=== PATIENT | female | born 1970 | race Caucasian/White ===

== ENCOUNTER → 2017-09-18 06:57 | Outpatient (CLI) | payer OTHER, SELFPAY ==
--- NOTE | 2017-09-18 07:23 | BI_ITS ---
MAMMOGRAPHY - BILATERAL SCREENING REASON FOR EXAM: Female, 46 years old. Routine annual screening examination. PERTINENT HISTORY: Mother with breast cancer. Aunt with breast cancer. TECHNIQUE: Digital bilateral breast mendoza (3D mammographic acquisition) in the CC and MLO projections. 2-D mediolateral oblique (MLO) and craniocaudad (CC) views of both breasts were obtained. CAD: Full Field Digital Mammography with Computer Added Detection was performed. COMPARISON: Comparison is made with prior examination dated November 04, 2013 and August 27, 2011. FINDINGS: Breast Composition: The breasts are heterogeneously dense, which may obscure small masses. There are no dominant masses or suspicious calcifications. Stable appearance of the small bilateral axillary lymph nodes. No other significant abnormalities are identified. There has been no significant change since the prior study. BI/SCREENING MAMM (CAD), BILAT IMPRESSION: Stable bilateral screening mammogram. Yearly follow-up mammogram recommended. (A) ASSESSMENT CATEGORY: BIRADS Category 2: Benign. A letter regarding these results will be sent to the patient by the facility within 30 days. Approximately 10% of breast cancers are not detected by mammography. A normal mammogram should not delay biopsy of a clinically suspicious abnormality. [id number] Electronically Signed: Gaurang Keenan MD at 10:55 EDT Tel [phone], Service support ,
== END ==
PROVIDERS: Family Provider Family Medicine; PCP Family Medicine
DX: Z12.31 Encounter for screening mammogram for malignant neoplasm of breast (principal)
CPT/HCPCS: 77063; 77067

== ENCOUNTER → 2024-11-06 | Outpatient (CLI) | payer BC, SELFPAY ==
[2024-11-06 11:28] LABS: Hematocrit 45.8 % (37-47); Hemoglobin 15.0 g/dL (12.0-15.0); Immature Granulocytes Count 0.020 X10^3/uL (0.0-0.0); Mean Corp Hgb Conc 32.8 g/dL (32-36); Mean Corpuscular Volume 94.6 fL (81-99); Mean Platelet Vol. 10.4 fl (6.2-12.0); NRBC Flagged by Analyzer 0 % (0-5); Platelet Count 258 K/mm3 (150-450); RBC Distribution Width CV 12.5 % (11.6-14.6); RBC Distribution Width SD 43.4 fl (35.1-43.9); Red Blood Count 4.84 M/mm3 (4.2-5.4); White Blood Count 7.3 K/mm3 (4.4-11.0)
[2024-11-06 12:55] LABS: AST(SGOT) 49 U/L (<=31); Alanine Aminotransfer ALT/SGPT 58 U/L (<=34); Albumin, Serum 4.5 g/dL (3.5-5.0); Alkaline Phosphatase 143 U/L (35-104); Anion Gap 13 (5-15); BUN 16 mg/dL (4-19); BUN/Creat Ratio 17.6 RATIO (10-20); Calcium,Total 9.8 mg/dL (7.6-11.0); Carbon Dioxide 25.8 mmol/L (21.0-32.0); Chloride 103 mmol/L (98-108); Globulin 3.3 g/dL (2.2-4.2); Glucose 92 mg/dL (70-99); Potassium 4.2 mmol/L (3.3-5.1)
--- OUTSIDE RECORDS SUMMARY | 2024-11-06 15:57 | XMS RPT_ITS | CCD ---
Author Organization [facility] Care Team Providers Care Rewind Operator Name Role Phone JUANY BROWN Unavailable Unavailable Rupesh Ho Unavailable Unavailable JUANY BROWN Unavailable Unavailable SUSANNAH GRIMES DO Primary Care Physician [phone] Unavailable Primary Care Provider UnavailCHRISTIANO Frye Attending Unavailable SUSANNAH GRIMES DO Primary Care Unavailable SUSANNAH GRIMES DO Attending Unavailable SUSANNAH GRIMES DO Primary Care Unavailable SUSANNAH GRIMES DO Primary Care Unavailable SUSANNAH GRIMES DO Attending Unavailable SUSANANH GRIMES DO Attending Unavailable SUSANNAH GRIMES DO Primary Care Unavailable SUSANNAH GRIMES DO Primary Care Unavailable SYDNEY LANDA, SUSANNAH Attending Unavailable Allergies Allergy Classification Reported Allergen(s) Allergy Type Date of Onset Reaction(s) Facility (1 source) Penicillins Drug allergy (disorder) 01-23-20 16 [facility] (9 sources) Amoxicillin; Translations: [amoxicillin] Drug Allergy Diarrhea (finding), Eruption of skin (disorder) [facility] (9 sources) Benzodiazepines ; Translations: [benzodiazepine s] Propensity to adverse reactions to drug hypersomnolence [facility] (9 sources) buPROPion; Translations: [bupropion] Drug Allergy Suicidal (finding) [facility] (9 sources) OLANZapine; Translations: [olanzapine] Drug Allergy extreme fatigue [facility] (9 sources) Penicillin; Translations: [penicillin] Drug Allergy Diarrhea (finding), Eruption of skin (disorder) [facility] (9 sources) zaleplon; Translations: [zaleplon] Drug Allergy Hallucinations (finding) [facility] (9 sources) zolpidem; Translations: [zolpidem] Drug Allergy became violent [facility] Medications Current Medications Medication Drug Class(es) Dates Sig (Normalized) Sig (Original) CPAP Supplies (1 source) Start: 12-18-2023 CPAP Supplies See Instructions, Full setup (mask/tubing/water res), # 1 EA, 3 Refill(s), 80.5 Start Date: 12/18/23 Status: Ordered Quantity: 1.0 Unit: EA Repeat number: 4 cyclobenzaprine hydrochloride 10 mg oral tablet (4 sources) Muscle Relaxant Start: 03-18-2024 cyclobenzaprine 10 mg oral tablet Dose : 10 mg = 1 tab(s), Oral, TID, PRN as needed for spasm, # 30 tab(s), 2 Refill(s), Pharmacy: [email or web address], 163, cm, 03/18/24 14:35:00 EST, Height, kg, 03/18/24 14:35:00 EST, Dosing Weight Start Date: 03/18/24 Status: Ordered Quantity: 30.0 Unit: tab(s) Repeat number: 3 Start: 11-06-2023 cyclobenzaprin e 10 mg oral tablet Dose : 10 mg = 1 tab(s), Oral, TID, PRN as needed for spasm, # 30 tab(s), 2 Refill(s), Pharmacy: [email or web address], 163, cm, 11/06/23 8:08:00 EDT, Height, kg, 11/06/23 8:08:00 EDT, Dosing Weight Start Date: 11/06/23 Status: Ordered Start: 09-18-2022 cyclobenzaprin e 10 mg oral tablet Dose : 10 mg = 1 tab(s), Oral, TID, PRN as needed for spasm, # 30 tab(s), 0 Refill(s) Start Date: 09/18/22 Status: Ordered DME MISCellaneous (3 sources) Start: 11-06-2023 DME MISCellane ous See Instructions, dx S98.921A dispense one right shoe insert for partial foot amputation (distal), # 1 EA, 0 Refill(s), Partial traumatic amputation of right foot, 81.1 Start Date: 11/06/23 Status: Ordered Quantity: 1.0 Unit: EA Repeat number: 1 Indications: Partial traumatic amputation of right foot, level unspecified, initial encounter; Start: 11-06-2023 DME MISCellane ous See Instructions, dx S98.921A dispense one right shoe insert for partial foot amputation (distal), # 1 EA, 0 Refill(s), Partial traumatic amputation of right foot, 81.1 Start Date: 11/06/23 Status: Ordered ferrous gluconate 324 mg oral tablet (1 source) Start: 08-29-2020 ferrous glucon ate 324 mg (37.5 mg elemental iron) oral tablet Dose : 324 mg = 1 tab(s), Oral, qDay, # 100 tab(s), 0 Refill(s) Start Date: 08/29/20 Status: Ordered fluticasone propionate 0.05 mg/actuat metered dose nasal spray (4 sources) Corticosteroid Start: 10-12-2024 End: 04-10-2025 take 1 dose nasal route once daily as needed for congestion fluticasone 50 mcg/inh NASAL spray Dose = 2 spray(s), Nostril, each, qDay, PRN Nasal congestion, in each nostril, # 1 EA, 5 Refill(s), Pharmacy: [email or web address], 164, cm, 10/12/24 16:05:00 EDT, Height, kg, 10/12/24 16:05:00 EDT, Dosing Weight Start Date: 10/12/24 Stop Date: 04/10/25 Status: Ordered Quantity: 1.0 Unit: EA Repeat number: 6 Start: 11-06-2023 End: 05-04-2024 take 1 dose nasal route once daily as needed for congestion fluticasone 50 mcg/inh NASAL spray Dose = 2 spray(s), Nostril, each, qDay, PRN Nasal congestion, in each nostril, # 1 EA, 5 Refill(s), Pharmacy: [email or web address], 163, cm, 11/06/23 8:08:00 EDT, Height, kg, 11/06/23 8:08:00 EDT, Dosing Weight Start Date: 11/06/23 Stop Date: 05/04/24 Status: Ordered Start: 07-23-2022 End: 01-19-2023 take 1 dose nasal route once daily as needed for congestion fluticasone 50 mcg/inh NASAL spray Dose = 2 spray(s), Nostril, each, qDay, PRN PRN Nasal congestion, in each nostril, # 1 EA, 5 Refill(s), Pharmacy: [email or web address], 162, cm, 12/22/21 14:35:00 EDT, Height, kg, 12/22/21 14:35:00 EDT, Dosing Weight Start Date: 07/23/22 Stop Date: 01/19/23 Status: Ordered gabapentin 300 mg oral capsule (2 sources) Anti-epileptic Agent Start: 11-06-2023 End: 01-05-2024 gabapentin 300 mg oral capsule Dose : 300 mg = 1 cap(s), Oral, TID, start one cap at night x3 days, then one cap BID x 3 days, then one cap TID, # 90 cap(s), 1 Refill(s), Pharmacy: [email or web address], Sciatica, 163, cm, 11/06/23 8:08:00 EDT, Height, 81.1, kg, 11/06/23 8:08:00 EDT, Dosing Weight Start Date: 11/06/23 Stop Date: 01/05/24 Status: Ordered hydrOXYzine hydrochloride 25 mg oral tablet (9 sources) Antihistamine Start: 10-12-2024 End: 01-10-2025 take 0.5-1 tablets by mouth once daily as needed hydrOXYzine hydrochloride 25 mg oral tablet 0.5-1 tab, Oral, qDay, PRN prn, # 30 EA, 2 Refill(s), Pharmacy: [email or web address], 164, cm, 10/12/24 16:05:00 EDT, Height, kg, 10/12/24 16:05:00 EDT, Dosing Weight Start Date: 10/12/24 Stop Date: 01/10/25 Status: Ordered Quantity: 30.0 Unit: EA Repeat number: 3 Start: 11-06-2023 End: 02-04-2024 take 0.5-1 tablets by mouth once daily as needed hydrOXYzine hydrochloride 25 mg oral tablet 0.5-1 tab, Oral, qDay, PRN prn, # 30 EA, 2 Refill(s), Pharmacy: [email or web address], 163, cm, 11/06/23 8:08:00 EDT, Height, kg, 11/06/23 8:08:00 EDT, Dosing Weight Start Date: 11/06/23 Stop Date: 02/04/24 Status: Ordered Start: 09-13-2020 End: 10-13-2020 take 0.5-1 tablets by mouth once daily as needed hydrOXYzine hydrochloride 25 mg oral tablet 0.5-1 tab, Oral, qDay, PRN prn, # 30 EA, 0 Refill(s), Pharmacy: [email or web address], 165, cm, 09/13/20 8:03:00 EDT, Height, kg, 09/13/20 8:03:00 EDT, Dosing Weight Start Date: 09/13/20 Stop Date: 10/13/20 Status: Ordered meloxicam 15 mg oral tablet (3 sources) Nonsteroidal Anti-inflammatory Drug Start: 10-12-2024 End: 11-11-2024 meloxicam 15 mg oral tablet Dose : 15 mg = 1 tab(s), Oral, qDayM, PRN Pain, Take with food/milk and fluids. Do not take any other NSAIDs while on this medication., # 30 tab(s), 0 Refill(s), Pharmacy: [email or web address], 164, cm, 10/12/24 16:05:00 EDT, Height, kg, 10/12/24 16:05:00 EDT, Dosing Weight Start Date: 10/12/24 Stop Date: 11/11/24 Status: Ordered Quantity: 30.0 Unit: tab(s) Repeat number: 1 Start: 11-06-2023 End: 12-06-2023 meloxicam 15 mg oral tablet Dose : 15 mg = 1 tab(s), Oral, qDayM, PRN Pain, Take with food/milk and fluids. Do not take any other NSAIDs while on this medication., # 30 tab(s), 0 Refill(s), Pharmacy: [email or web address], 163, cm, 11/06/23 8:08:00 EDT, Height, kg, 11/06/23 8:08:00 EDT, Dosing Weight Start Date: 11/06/23 Stop Date: 12/06/23 Status: Ordered venlafaxine 100 mg oral tablet (9 sources) Serotonin and Norepinephrine Reuptake Inhibitor Start: 10-12-2024 End: 04-10-2025 venlafaxine 100 mg oral tablet Dose : 100 mg = 1 tab(s), Oral, TID, with food, # 270 tab(s), 1 Refill(s), Pharmacy: [email or web address], 164, cm, 10/12/24 16:05:00 EDT, Height, kg, 10/12/24 16:05:00 EDT, Dosing Weight Start Date: 10/12/24 Stop Date: 04/10/25 Status: Ordered Quantity: 270.0 Unit: tab(s) Repeat number: 2 Start: 11-06-2023 End: 01-05-2024 venlafaxine 100 mg oral tabl et Dose : 100 mg = 1 tab(s), Oral, TID, with food, # 90 tab(s), 1 Refill(s), Pharmacy: [email or web address], 163, cm, 11/06/23 8:08:00 EDT, Height, kg, 11/06/23 8:08:00 EDT, Dosing Weight Start Date: 11/06/23 Stop Date: 01/05/24 Status: Ordered Start: 09-18-2022 End: 03-17-2023 venlafaxine 100 mg oral tabl et Dose : 100 mg = 1 tab(s), Oral, TID, with food, # 270 tab(s), 1 Refill(s), Pharmacy: [email or web address], 163, cm, 09/18/22 9:58:00 EDT, Height, kg, 09/18/22 9:58:00 EDT, Dosing Weight Start Date: 09/18/22 Stop Date: 03/17/23 Status: Ordered Start: 12-14-2020 End: 06-12-2021 venlafaxine 225 mg oral tabl et, extended release Dose : 225 mg = 1 tab(s), Oral, qDay, # 90 tab(s), 1 Refill(s), Pharmacy: [email or web address], 166, cm, 12/14/20 13:58:00 EDT, Height, kg, 12/14/20 13:58:00 EDT, Dosing Weight Start Date: 12/14/20 Stop Date: 06/12/21 Status: Ordered Vitamin B12 500 mcg oral tab let (3 sources) Start: 10-12-2024 Vitamin B12 50 0 mcg oral tablet Dose : 500 mcg = 1 tab(s), Oral, qDay, # 90 tab(s), 1 Refill(s), Pharmacy: [email or web address], 164, cm, 10/12/24 16:05:00 EDT, Height, kg, 10/12/24 16:05:00 EDT, Dosing Weight Start Date: 10/12/24 Status: Ordered Quantity: 90.0 Unit: tab(s) Repeat number: 2 Start: 11-06-2023 Vitamin B12 50 0 mcg oral tablet Dose : 500 mcg = 1 tab(s), Oral, qDay, # 90 tab(s), 1 Refill(s), Pharmacy: [email or web address], 163, cm, 11/06/23 8:08:00 EDT, Height, kg, 11/06/23 8:08:00 EDT, Dosing Weight Start Date: 11/06/23 Status: Ordered Vitamin D3 125 mcg (5000 int l units) oral capsule (1 source) Start: 10-12-2024 Vitamin D3 125 mcg (5000 intl units) oral capsule Dose : 125 mcg = 1 cap(s), Oral, qDay, # 100 cap(s), 1 Refill(s), Pharmacy: [email or web address], 164, cm, 10/12/24 16:05:00 EDT, Height, kg, 10/12/24 16:05:00 EDT, Dosing Weight Start Date: 10/12/24 Status: Ordered Quantity: 100.0 Unit: cap(s) Repeat number: 2 Vitamin D3 50 mcg (2000 intl units) oral tablet (3 sources) Start: 11-06-2023 End: 05-04-2024 Vitamin D3 50 mcg (2000 intl units) oral tablet Dose : 2,000 unit(s) = 1 tab(s), Oral, qDayM, with food, # 90 tab(s), 1 Refill(s), Pharmacy: [email or web address], 163, cm, 11/06/23 8:08:00 EDT, Height, kg, 11/06/23 8:08:00 EDT, Dosing Weight Start Date: 11/06/23 Stop Date: 05/04/24 Status: Ordered Start: 10-01-2022 End: 12-30-2022 Vitamin D3 50 mcg (2000 intl units) oral tablet Dose : 2,000 unit(s) = 1 tab(s), Oral, qDayM, with food, # 90 tab(s), 0 Refill(s), Pharmacy: [email or web address], 163, cm, 09/18/22 9:58:00 EDT, Height Start Date: 10/01/22 Stop Date: 12/30/22 Status: Ordered Completed/Discontinued Medications Medication Drug Class(es) Dates Sig (Normalized) Sig (Original) [id number] 200 actuat albuterol 0.09 mg/actuat metered dose inhaler (8 sources) beta2-Adrenergic Agonist Start: 11-06-2023 End: 12-18-2023 ProAir HFA MDI (90 mcg/inh) inhalation aerosol 2 puff(s), Inhalation, q6hr, PRN as needed for wheezing, 1-2 puffs, # 18 gram(s), 2 Refill(s), Pharmacy: [email or web address], 163, cm, 11/06/23 8:08:00 EDT, Height, kg, 11/06/23 8:08:00 EDT, Dosing Weight Start Date: 11/06/23 Stop Date: 12/18/23 Status: Ordered Quantity: 18.0 Unit: g Repeat number: 3 Start: 04-14-2021 End: 04-28-2021 ProAir HFA MDI (90 mcg/inh) inhalation aerosol 2 puff(s), Inhalation, q6hr, PRN as needed for wheezing, 1-2 puffs, # 18 gram(s), 0 Refill(s), Pharmacy: [email or web address], 162, cm, 04/14/21 11:22:00 EST, Height, kg, 04/14/21 11:22:00 EST, Dosing Weight Start Date: 04/14/21 Stop Date: 04/28/21 Status: Ordered Problems Problem Classification Problem Date Documented Da te Episodic/Chronic Anxiety disorders (20 sources) Generalized anxiety disorder; Translations: [Panic attack] 08-29-2020 Chronic Cardiac dysrhythmias (9 sources) Palpitations 08-29-2020 Episodic Diabetes mellitus without complication (10 sources) Prediabetes; Translations: [Prediabetes] Onset: 09-13-2021 01-02-2021 Episodic Disorders of lipid metabolism (4 sources) Mixed hyperlipidemia 10-01-2022 Chronic Comment on above: 09/28 ASCVD risk 1.0% Headache; including migraine (9 sources) Tension-type headache 12-14-2020 Chronic Headache; including migraine (3 sources) Headache 10-30-2022 Episodic Malaise and fatigue (8 sources) Fatigue 09-08-2021 Episodic Mood disorders (8 sources) Severe major depression; Translations: [Recurrent major depressive episodes, moderate ] 08-29-2020 Chronic Nonspecific chest pain (9 sources) Chest wall pain 08-29-2020 Episodic Nutritional deficiencies (4 sources) Vitamin D deficiency 10-01-2022 Chronic Nutritional deficiencies (3 sources) Cobalamin deficiency 10-30-2022 Episodic Other and unspecified benign neoplasm (9 sources) History of polyp of colon 08-29-2020 Episodic Other and unspecified benign neoplasm (4 sources) Melanocytic nevus 12-22-2021 Episodic Other bone disease and musculoskeletal deformities (1 source) Other specified disorders of bone density and structure, left thigh; Translations: [Other specified disorders of bone density and structure, left thigh] Onset: 10-30-2024 Episodic Other eye disorders (4 sources) Exophthalmos 10-12-2021 Chronic Other gastrointestinal disorders (9 sources) Irritable bowel syndrome 08-29-2020 Chronic Other infections; including parasitic (9 sources) History of herpes zoster 09-30-2020 Episodic Other liver diseases (4 sources) Elevated liver enzymes level 10-01-2022 Episodic Other liver diseases (3 sources) Alkaline phosphatase raised 11-05-2022 Episodic Other lower respiratory disease (9 sources) Snoring 02-21-2021 Episodic Other nutritional; endocrine; and metabolic disorders (3 sources) Body mass index 30+ - obesity 11-06-2023 Chronic Other nutritional; endocrine; and metabolic disorders (3 sources) Obesity 11-06-2023 Chronic Other screening for suspected conditions (not mental disorders or infectious disease) (5 sources) Viral screening status; Translations: [Encounter for screening mammogram for malignant neoplasm of breast] Onset: 10-30-2024 12-14-2020 Episodic Other upper respiratory infections (2 sources) Acute maxillary sinusitis; Translations: [Acute maxillary sinusitis, unspecified] Episodic Residual codes; unclassified (9 sources) Hypersomnia 02-21-2021 Chronic Residual codes; unclassified (4 sources) Obstructive sleep apnea syndrome 10-12-2021 Chronic Residual codes; unclassified (9 sources) Family history of breast cancer 08-29-2020 Episodic Residual codes; unclassified (5 sources) Immunization due 02-21-2021 Episodic Residual codes; unclassified (9 sources) Insomnia 08-29-2020 Episodic Residual codes; unclassified (3 sources) Screening due 11-06-2023 Episodic Screening and history of mental health and substance abuse codes (3 sources) Tobacco use and exposure - finding 11-06-2023 Chronic Spondylosis; intervertebral disc disorders; other back problems (1 source) Degeneration of lumbar intervertebral disc 12-18-2023 Chronic Spondylosis; intervertebral disc disorders; other back problems (4 sources) Low back pain 10-26-2021 Episodic Thyroid disorders (4 sources) Disorder of thyroid gland 09-20-2022 Episodic Unclassified (1 source) Cancer cervix screening status 02-21-2021 Unclassified (6 sources) Patient encounter status 02-21-2021 Unclassified (3 sources) Traumatic partial amputation of right foot 11-06-2023 Viral infection (5 sources) Respiratory syncytial virus infection 04-21-2021 Episodic Results Test Name Value Interpretation Reference Range Facility MA MAMMOGRAM SCREENING BILAT ERAL W/TOMOon 11-02-2024 MA MAMMOGRAM SCREENING BILATERAL W/GIRISH ORIGINAL FROM: NEREIDA BEAN [address] [place], [place] [address] PROCEDURE FOR: CAITLYN FERREIRA [address] [place] [address] Home: PID#: [id number] Exam#: [id number] : 1970 Age: 54 TO: SUSANNAH GRIMES DO [address] [place], [place] [address] Fax: NO FAX EXAMINATION: SCREENING DIGITAL BILATERAL MAMMOGRAM WITH TOMOSYNTHESIS, 10/30/2024 1:44 pm TECHNIQUE: Screening mammography of the bilateral breasts was performed with tomosynthesis. 2D standard and 3D tomosynthesis combination imaging performed through both breasts in the MLO and CC projection. Computer aided detection was utilized in the interpretation of this exam. COMPARISON: 03/17/2021 HISTORY: Breast cancer screening. FINDINGS: BREAST DENSITY: The breasts are heterogeneously dense, which may obscure small masses. There are no significant masses or calcifications. IMPRESSION: No mammographic evidence of malignancy. Continued screening with annual mammograms is recommended. Melanie zick risk calculations, generated with the history provided, report this patient's 10 year risk and lifetime risk for developing breast cancer at 8.9% and 28.6%, respectively. Based on this assessment tool, if the patient's calculated lifetime risk is below 20%, then the patient is considered at average risk for developing breast cancer. If the patient's calculated lifetime risk is at or above 20%, then the patient is considered high risk for developing breast cancer and may be a candidate for supplemental breast MRI screening in addition to annual mammographic screening per the [employer]. BIRADS: BI-RADS: 1: Negative RECALL: 1 year screening RECALL TYPE: mammo LETTER SENT: Normal BI-RADS 1 and 2 Interpreted by: Rivka Hernandez MD Preliminary Report By: Rivka Hernandez MD Electronically signed By Rivka Hernandez MD Dictated Date: 11/02/2024 11:20:34 PM Prelim Date: 11/02/2024 11:22:10 PM Sign Date: 11/02/2024 11:22:10 PM Ordering Provider: SUSANNAH GRIMES [employer]utter [employer]: ASHLYN FERRIS RT (R)(M) letter sent: Normal BI-RADS 1 and 2 Mammogram BI-RADS: 1 Negative Normal [facility] BD BONE DENSITY DEXA AXIAL S Manju 10-30-2024 BD BONE DENSITY DEXA AXIAL SKELETON ORIGINAL EXAMINATION: BONE DENSITOMETRY 10/30/2024 2:07 pm TECHNIQUE: A bone density dual x-ray absorptiometry (DEXA) scan was performed of the axial (e.g. hips, spine) and/or appendicular (e.g. radius) skeleton as appropriate. COMPARISON: None HISTORY: ORDERING SYSTEM PROVIDED HISTORY: Reason for Exam: Osteoporosis Screening FINDINGS: T Score Left Femoral Neck: -1.1 Left Femoral Neck: 0.724 (g/cm2) T Score Left Hip: -0.4 Left Hip: 0.888 (g/cm2) T Score Lumbar Spine: 0.2 Lumbar Spine: 1.073 (g/cmd2) FRAX: 10 year fracture risk assessment Major osteoporotic fracture: 5.5% Hip fracture: 0.3% IMPRESSION: Osteopenia by WHO criteria. World Health Organization criteria: (Comparing with young normal sex matched population) - Normal: T-score at or above -1 SD (standard deviation) - Osteopenia: T-score between -1 and -2.5 SD - Osteoporosis: T-score at or below -2.5 SD The NOF recommends that FDA-approved medical therapies be considered in post-menopausal women and men age >/= 50 years with a: * Hip or vertebral fracture, or * T-score of /= 20% for major osteoporotic fractures or * >/= 3% for hip fractures All treatment decisions require clinical judgement and consideration of individual patient factors, including patient preferences, comorbidities, previous drug use, risk factors not captured in the FRAX registered model (e.g., frailty, falls, vitamin D deficiency, increased bone turnover, interval significant decline in bone density) and possible under- or over-estimation of fracture risk by FRAX. Interpreted by: Rivka Reno DO Preliminary Report By: Rivka Reno DO Electronically signed By Rivka Reno DO Dictated Date: 10/30/2024 2:39:11 PM Prelim Date: 10/30/2024 2:39:38 PM Sign Date: 10/30/2024 2:39:38 PM Ordering Provider: SUSANNAH Carranza [facility] .Auto Diffon 12-12-2023 Basophil, Absolute 0.1 10 3/mcL Normal 0.0-0.2 [facility] ([place]) Comment on above: Performed By: #### V IDH, LIPID, ADIFF, CBC, ANEU, CMP, GFR #### [address] [address] Basophils/100 WBC (Bld) 1.2 % Normal 0.0-2.5 [facility] ([place]) Comment on above: Performed By: #### V IDH, LIPID, ADIFF, CBC, ANEU, CMP, GFR #### [address] [address] Eosinophil, Absolute 0.1 10 3/mcL Normal 0.0-0.4 [facility] ([place]) Comment on above: Performed By: #### V IDH, LIPID, ADIFF, CBC, ANEU, CMP, GFR #### [address] [address] Eosinophils/100 WBC (Bld) 2.0 % Normal 0.0-7.0 [facility] ([place]) Comment on above: Performed By: #### V IDH, LIPID, ADIFF, CBC, ANEU, CMP, GFR #### [address] [address] Lymphocyte, Absolute 2.4 10 3/mcL Normal 0.8-3.9 [facility] ([place]) Comment on above: Performed By: #### V IDH, LIPID, ADIFF, CBC, ANEU, CMP, GFR #### [address] [address] Lymphocytes/100 WBC (Bld) 34.4 % Normal 10.0-50.0 [facility] ([place]) Comment on above: Performed By: #### V IDH, LIPID, ADIFF, CBC, ANEU, CMP, GFR #### [address] [address] Monocyte, Absolute 0.5 10 3/mcL Normal 0.2-1.0 [facility] ([place]) Comment on above: Performed By: #### V IDH, LIPID, ADIFF, CBC, ANEU, CMP, GFR #### [address] [address] Monocytes/100 WBC (Bld) 7.4 % Normal 1.7-13.0 [facility] ([place]) Comment on above: Performed By: #### V IDH, LIPID, ADIFF, CBC, ANEU, CMP, GFR #### [place] [address] [address] Neutrophils/100 WBC (Bld) 55.0 % Normal 37.0-80.0 [facility] ([place]) Comment on above: Performed By: #### V IDH, LIPID, ADIFF, CBC, ANEU, CMP, GFR #### [place] [address] [address] .GFRon 12-12-2023 GFR 84 ml/min/1.73sqm Normal [facility] ([place]) Comment on above: Result Comment: GFR Population mean for , Non- Americans Ages 20-29 = 116 mL/min/1.73 sq.m. Ages 30-39 = 107 mL/min/1.73 sq.m. Ages 40-49 = 99 mL/min/1.73 sq.m. Ages 50-59 = 93 mL/min/1.73 sq.m. Ages 60-69 = 85 mL/min/1.73 sq.m. Ages 70+ = 75 mL/min/1.73 sq.m. Chronic Kidney Disease: Less than 60 mL/min/1.73 square meters End Stage Renal Disease: Less than 15 mL/min/1.73 square meters Performed By: #### V IDH, LIPID, ADIFF, CBC, ANEU, CMP, GFR #### [address] [address] GFR Non- 69 ml/min/1.73sqm Normal [facility] ([place]) Comment on above: Result Comment: GFR Population mean for , Non- Americans Ages 20-29 = 116 mL/min/1.73 sq.m. Ages 30-39 = 107 mL/min/1.73 sq.m. Ages 40-49 = 99 mL/min/1.73 sq.m. Ages 50-59 = 93 mL/min/1.73 sq.m. Ages 60-69 = 85 mL/min/1.73 sq.m. Ages 70+ = 75 mL/min/1.73 sq.m. Chronic Kidney Disease: Less than 60 mL/min/1.73 square meters End Stage Renal Disease: Less than 15 mL/min/1.73 square meters Performed By: #### V IDH, LIPID, ADIFF, CBC, ANEU, CMP, GFR #### [address] [address] .NEUABSon 12-12-2023 Neutrophil, Absolute 3.8 10 3/mcL Normal 2.9-6.2 [facility] ([place]) Comment on above: Performed By: #### V IDH, LIPID, ADIFF, CBC, ANEU, CMP, GFR #### [address] [address] A1Con 12-12-2023 Glucose [Mass/Vol] 111 mg/dL Normal [facility] Comment on above: Result Comment: Ale mated Average Glucose calculated by equation ((28.7xA1C)-46.7) Estimated average glucose (eAG) is a calculated value from Hemoglobin A1C and is loss control representative of the average blood glucose level in the last 2-3 month period. Normal range: less than 114 mg/dL Performed By: #### B 12 #### [place] [address] #### A1C #### [address] [address] HbA1c (Bld) [Mass fraction] 5.5 % Normal 4.3-6.4 [facility] Comment on above: Performed By: #### B 12 #### [address] [address] #### A1C #### [address] [address] B12on 12-12-2023 Cobalamin (Vitamin B12) [Mass/Vol] 495 pg/mL Normal 211-911 [facility] Comment on above: Performed By: #### B 12 #### [address] [address] #### A1C #### [place] [id number] CBCon 12-12-2023 Erythrocyte distribution width (RBC) [Ratio] 13.1 % Normal 11.5-14.5 [facility] ([place]) Comment on above: Performed By: #### V IDH, LIPID, ADIFF, CBC, ANEU, CMP, GFR #### [place] [address] Hematocrit (Bld) [Volume fraction] 43.2 % Normal 37.0-47.0 [facility] ([place]) Comment on above: Performed By: #### V IDH, LIPID, ADIFF, CBC, ANEU, CMP, GFR #### [place] [address] Hgb 14.5 G/dL Normal 12.0-16.0 [facility] ([place]) Comment on above: Performed By: #### V IDH, LIPID, ADIFF, CBC, ANEU, CMP, GFR #### [place] [id number] MCH (RBC) [Entitic mass] 31.4 pg High 27.0-31.2 [facility] ([place]) Comment on above: Performed By: #### V IDH, LIPID, ADIFF, CBC, ANEU, CMP, GFR #### [place] [id number] MCHC 33.5 G/dL Normal 33.0-37.0 [facility] ([place]) Comment on above: Performed By: #### V IDH, LIPID, ADIFF, CBC, ANEU, CMP, GFR #### [place] [id number] MCV (RBC) [Entitic vol] 93.8 fL Normal 80.0-94.0 [facility] ([place]) Comment on above: Performed By: #### V IDH, LIPID, ADIFF, CBC, ANEU, CMP, GFR #### [place] [id number] Platelet 256 10 3/mcL Normal 130-400 [facility] ([place]) Comment on above: Performed By: #### V IDH, LIPID, ADIFF, CBC, ANEU, CMP, GFR #### [address] [address] Platelet mean volume (Bld) [Entitic vol] 8.2 fL Normal 7.4-10.4 [facility] ([place]) Comment on above: Performed By: #### V IDH, LIPID, ADIFF, CBC, ANEU, CMP, GFR #### [address] [address] RBC 4.61 10 6/mcL Normal 4.20-5.40 [facility] ([place]) Comment on above: Performed By: #### V IDH, LIPID, ADIFF, CBC, ANEU, CMP, GFR #### [address] [address] WBC 6.8 10 3/mcL Normal 4.6-10.8 [facility] ([place] Comment on above: Performed By: #### V IDH, LIPID, ADIFF, CBC, ANEU, CMP, GFR #### [address] [address] CMPon 12-12-2023 Albumin Level 4.1 G/dL Normal 3.5-5.0 [facility] ([place]) Comment on above: Performed By: #### V IDH, LIPID, ADIFF, CBC, ANEU, CMP, GFR #### [address] [address] Albumin/Globulin [Mass ratio] 1.2 {ratio} Normal 1.1-2.5 [facility] ([place] Comment on above: Performed By: #### V IDH, LIPID, ADIFF, CBC, ANEU, CMP, GFR #### [address] [address] ALP [Catalytic activity/Vol] 184 U/L High 40-135 [facility] ([place]) Comment on above: Performed By: #### V IDH, LIPID, ADIFF, CBC, ANEU, CMP, GFR #### [address] [address] ALT [Catalytic activity/Vol] 68 U/L High 14-59 [facility] ([place]) Comment on above: Performed By: #### V IDH, LIPID, ADIFF, CBC, ANEU, CMP, GFR #### [address] [address] AST [Catalytic activity/Vol] 37 U/L Normal 10-40 [facility] ([place]) Comment on above: Performed By: #### V IDH, LIPID, ADIFF, CBC, ANEU, CMP, GFR #### [address] [address] Bili Total 0.5 mg/dL Normal 0.2-1.0 [facility] ([place]) Comment on above: Result Comment: Use of this assay is not recommended for patients undergoing treatment with eltrombopag due to the potential for falsely elevated results. Performed By: #### V IDH, LIPID, ADIFF, CBC, ANEU, CMP, GFR #### [address] [address] BUN/Creatinine Ratio 15 ratio Normal 7-27 [facility] ([place]) Comment on above: Performed By: #### V IDH, LIPID, ADIFF, CBC, ANEU, CMP, GFR #### [address] [address] Calcium [Mass/Vol] 9.4 mg/dL Normal 8.4-10.2 [facility] ([place]) Comment on above: Performed By: #### V IDH, LIPID, ADIFF, CBC, ANEU, CMP, GFR #### [address] [address] Chloride [Moles/Vol] 102 mmol/L Normal 98-107 [facility] ([place]) Comment on above: Performed By: #### V IDH, LIPID, ADIFF, CBC, ANEU, CMP, GFR #### [address] [address] CO2 [Moles/Vol] 32 mmol/L High 22-29 [facility] ([place]) Comment on above: Performed By: #### V IDH, LIPID, ADIFF, CBC, ANEU, CMP, GFR #### [address] [address] Creatinine [Mass/Vol] 0.86 mg/dL Normal 0.55-1.02 [facility] ([place] Comment on above: Result Comment: Test ing performed on Siemens Dimension EXL analyzer using a modified kinetic Angely technique. Performed By: #### V IDH, LIPID, ADIFF, CBC, ANEU, CMP, GFR #### [address] [address] Electrolyte Balance 4.0 mEq/L Normal 4.0-15.0 [facility] ([place]) Comment on above: Performed By: #### V IDH, LIPID, ADIFF, CBC, ANEU, CMP, GFR #### [address] [address] Globulin 3.4 G/dL Normal [facility] ([place]) Comment on above: Performed By: #### V IDH, LIPID, ADIFF, CBC, ANEU, CMP, GFR #### [address] [address] Glucose [Mass/Vol] 93 mg/dL Normal 70-105 [facility] ([place]) Comment on above: Performed By: #### V IDH, LIPID, ADIFF, CBC, ANEU, CMP, GFR #### [address] [address] Potassium [Moles/Vol] 4.7 mmol/L Normal 3.5-5.1 [facility]) Comment on above: Performed By: #### V IDH, LIPID, ADIFF, CBC, ANEU, CMP, GFR #### [address] [address] Sodium [Moles/Vol] 138 mmol/L Normal 136-145 [facility] ([place]) Comment on above: Performed By: #### V IDH, LIPID, ADIFF, CBC, ANEU, CMP, GFR #### [address] [address] Total Protein 7.5 G/dL Normal 6.4-8.2 [facility] ([place]) Comment on above: Performed By: #### V IDH, LIPID, ADIFF, CBC, ANEU, CMP, GFR #### [place] [address] [place], [place] [address] Urea nitrogen [Mass/Vol] 13 mg/dL Normal 7-18 [facility] ([place]) Comment on above: Performed By: #### V IDH, LIPID, ADIFF, CBC, ANEU, CMP, GFR #### [place] [id number] [place], [place] [address] LABORATORYOrdered By: SYSTEM SYSTEM on 12-12-2023 25-hydroxyvitamin D3 [Mass/Vol] 27.6 ng/mL Invalid Interpretation Code AO ADM SS Comment on above: Interpretive Data: I nterpretive Values Based on Total 25(OH) Vitamin D: Deficient <20 ng/mL Insufficient 20 - <30 ng/mL Sufficient 30-100 ng/mL Albumin BCP dye [Mass/Vol] 4.1 G/dL Normal 3.5 - 5.0 G/dL AO ADM SS Albumin/Globulin [Mass ratio] 1.2 {ratio} Normal 1.1 - 2.5 ratio AO ADM SS ALP [Catalytic activity/Vol] 184 U/L High 40 - 135 U/L AO ADM SS ALT With P-5'-P [Catalytic activity/Vol] 68 U/L High 14 - 59 U/L AO ADM SS AST With P-5'-P [Catalytic activity/Vol] 37 U/L Normal 10 - 40 U/L AO ADM SS Basophils (Bld) [#/Vol] 0.1 103/mcL Normal 0.0 - 0.2 10^3/mcL AO Workflow SS Basophils/100 WBC (Bld) 1.2 % Normal 0.0 - 2.5 % AO Workflow SS Bilirubin [Mass/Vol] 0.5 mg/dL Normal 0.2 - 1 .0 mg/dL AO ADM SS Comment on above: Interpretive Data: U se of this assay is not recommended for patients undergoing treatment with eltrombopag due to the potential for falsely elevated results. Calcium [Mass/Vol] 9.4 mg/dL Normal 8.4 - 10. 2 mg/dL AO ADM SS Chloride [Moles/Vol] 102 mmol/L Normal 98 - 10 7 mmol/L AO ADM SS CO2 [Moles/Vol] 32 mmol/L High 22 - 29 mmol/L AO ADM SS Cobalamin (Vitamin B12) [Mass/Vol] 495 pg/mL Normal 211 - 911 pg/mL AH ADM SS Creatinine [Mass/Vol] 0.86 mg/dL Normal 0.55 - 1.02 mg/dL AO ADM SS Comment on above: Interpretive Data: T esting performed on Siemens Dimension EXL analyzer using a modified kinetic Angely technique. Electrolyte Balance 4.0 mEq/L Normal 4.0 - 15 .0 mEq/L AO ADM SS Eosinophil, Absolute 0.1 103/mcL Normal 0.0 - 0 .4 10^3/mcL AO Workflow SS Eosinophils/100 WBC (Bld) 2.0 % Normal 0.0 - 7.0 % AO Workflow SS Erythrocyte distribution width (RBC) [Ratio] 13.1 % Normal 11.5 - 14.5 % AO Workflow SS GFR/1.73 sq M.predicted among blacks MDRD (S/P/Bld) [Vol rate/Area] 84 ml/min/1.73sqm Invalid Interpretation Code AO Chemistry S Comment on above: Interpretive Data: GFR Population mean for , Non- Americans Ages 20-29 = 116 mL/min/1.73 sq.m. Ages 30-39 = 107 mL/min/1.73 sq.m. Ages 40-49 = 99 mL/min/1.73 sq.m. Ages 50-59 = 93 mL/min/1.73 sq.m. Ages 60-69 = 85 mL/min/1.73 sq.m. Ages 70+ = 75 mL/min/1.73 sq.m. Chronic Kidney Disease: Less than 60 mL/min/1.73 square meters End Stage Renal Disease: Less than 15 mL/min/1.73 square meters GFR/1.73 sq M.predicted among non-blacks MDRD (S/P/Bld) [Vol rate/Area] 69 ml/min/1.73sqm Invalid Interpretation Code AO Chemistry S Comment on above: Interpretive Data: GFR Population mean for , Non- Americans Ages 20-29 = 116 mL/min/1.73 sq.m. Ages 30-39 = 107 mL/min/1.73 sq.m. Ages 40-49 = 99 mL/min/1.73 sq.m. Ages 50-59 = 93 mL/min/1.73 sq.m. Ages 60-69 = 85 mL/min/1.73 sq.m. Ages 70+ = 75 mL/min/1.73 sq.m. Chronic Kidney Disease: Less than 60 mL/min/1.73 square meters End Stage Renal Disease: Less than 15 mL/min/1.73 square meters Globulin 3.4 G/dL Invalid Interpretation Code AO ADM SS Glucose [Mass/Vol] 93 mg/dL Normal 70 - 105 mg/dL AO ADM SS Glucose [Mass/Vol] 111 mg/dL Invalid Interpretation Code AO Chemistry S Comment on above: Interpretive Data: E stimated average glucose (eAG) is a calculated value from Hemoglobin A1C and is loss control representative of the average blood glucose level in the last 2-3 month period. Normal range: less than 114 mg/dL HbA1c (Bld) [Mass fraction] 5.5 % Normal 4.3 - 6.4 % AO ADM SS Hematocrit (Bld) [Volume fraction] 43.2 % Normal 37.0 - 47.0 % AO Workflow SS Hemoglobin (Bld) [Mass/Vol] 14.5 G/dL Normal 12.0 - 16.0 G/dL AO Workflow SS Lymphocytes (Bld) [#/Vol] 2.4 103/mcL Normal 0.8 - 3.9 10^3/mcL AO Workflow SS Lymphocytes/100 WBC (Bld) 34.4 % Normal 10.0 - 50.0 % AO Workflow SS MCH (RBC) [Entitic mass] 31.4 pg High 27.0 - 31.2 pg AO Workflow SS MCHC 33.5 G/dL Normal 33.0 - 37.0 G/dL AO Workflow SS MCV (RBC) [Entitic vol] 93.8 fL Normal 80.0 - 94.0 fL AO Workflow SS Monocytes (Bld) [#/Vol] 0.5 103/mcL Normal 0.2 - 1.0 10^3/mcL AO Workflow SS Monocytes/100 WBC (Bld) 7.4 % Normal 1.7 - 13.0 % AO Workflow SS Neutrophils (Bld) [#/Vol] 3.8 103/mcL Normal 2.9 - 6.2 10^3/mcL AO Workflow SS Neutrophils/100 WBC (Bld) 55.0 % Normal 37.0 - 80.0 % AO Workflow SS Platelet mean volume (Bld) [Entitic vol] 8.2 fL Normal 7.4 - 10.4 fL AO Workflow SS Platelets (Bld) [#/Vol] 256 103/mcL Normal 130 - 400 10^3/mcL AO Workflow SS Potassium [Moles/Vol] 4.7 mmol/L Normal 3.5 - 5.1 mmol/L AO ADM SS Protein [Mass/Vol] 7.5 G/dL Normal 6.4 - 8.2 G/dL AO ADM SS RBC (Bld) [#/Vol] 4.61 106/mcL Normal 4.20 - 5.4 0 10^6/mcL AO Workflow SS Sodium [Moles/Vol] 138 mmol/L Normal 136 - 145 mmol/L AO ADM SS Urea nitrogen [Mass/Vol] 13 mg/dL Normal 7 - 18 mg/dL AO ADM SS Urea nitrogen/Creatinine [Mass ratio] 15 ratio Normal 7 - 27 ratio AO ADM SS WBC (Bld) [#/Vol] 6.8 103/mcL Normal 4.6 - 10.8 10^3/mcL AO Workflow SS LABORATORYOrdered By: Bennett Quinn on 12-12-2023 Cholesterol [Mass/Vol] 259 mg/dL High 0 - 200 mg/dL AO ADM SS Comment on above: Interpretive Data: C holesterol Reference Interval: Less than 200 Desirable 200-239 Borderline high risk 240 and above High risk Cholesterol in HDL [Mass/Vol] 76 mg/dL High 40 - 60 mg/dL AO ADM SS Cholesterol in LDL [Mass/Vol] 151 mg/dL High 0 - 130 mg/dL AO ADM SS Triglyceride [Mass/Vol] 161 mg/dL High 0 - 150 mg/dL AO ADM SS Comment on above: Interpretive Data: T riglyceride Reference Interval: Less than 150 Normal 150-199 Borderline high risk 200-499 High risk 500 or higher Very high risk LIPIDon 12-12-2023 Cholesterol [Mass/Vol] 259 mg/dL High 0-200 [facility] ([place]) Comment on above: Result Comment: Chol esterol Reference Interval: Less than 200 Desirable 200-239 Borderline high risk 240 and above High risk Performed By: #### V IDH, LIPID, ADIFF, CBC, ANEU, CMP, GFR #### [place] [id number] [place], [place] [address] Cholesterol in HDL [Mass/Vol] 76 mg/dL High 40-60 [facility] ([place]) Comment on above: Performed By: #### V IDH, LIPID, ADIFF, CBC, ANEU, CMP, GFR #### [address] [address] Cholesterol in LDL [Mass/Vol] 151 mg/dL High 0-130 [facility] ([place]) Comment on above: Performed By: #### V IDH, LIPID, ADIFF, CBC, ANEU, CMP, GFR #### [place] [id number] [place], [place] [address] Triglyceride [Mass/Vol] 161 mg/dL High 0-150 [facility] ([place]) Comment on above: Result Comment: Trig lyceride Reference Interval: Less than 150 Normal 150-199 Borderline high risk 200-499 High risk 500 or higher Very high risk Performed By: #### V IDH, LIPID, ADIFF, CBC, ANEU, CMP, GFR #### [address] [address] VIDHon 12-12-2023 Vit. D 25-Hydroxy 27.6 ng/mL Normal [facility] ([place]) Comment on above: Result Comment: Inte rpretive Values Based on Total 25(OH) Vitamin D: Deficient <20 ng/mL Insufficient 20 - <30 ng/mL Sufficient 30-100 ng/mL Performed By: #### V IDH, LIPID, ADIFF, CBC, ANEU, CMP, GFR #### [address] [address] XR SPINE LUMBAR W/OBLIQUES 4 VIEWSon 11-06-2023 XR SPINE LUMBAR W/OBLIQUES 4 VIEWS ORIGINAL EXAMINATION: AP lateral obliques 4 XRAY VIEWS OF THE LUMBAR SPINE11/06/2023 9:23 am COMPARISON: None HISTORY: ORDERING SYSTEM PROVIDED HISTORY: Reason for Exam: low back pain, left sciatica, FINDINGS: 5 lumbar-type vertebral bodies show normal height and AP alignment. There is no fracture or aggressive lesion. Mild L5-S1 disc space narrowing. No significant facet arthropathy. No spondylolysis on the oblique views. Symmetric normal SI joints. IMPRESSION: Mild degenerative changes. No acute findings. Interpreted by: Andrew Deluca MD Preliminary Report By: Andrew Deluca MD Electronically signed By Andrew Deluca MD Dictated Date: 11/06/2023 4:55:49 PM Prelim Date: 11/06/2023 4:56:25 PM Sign Date: 11/06/2023 4:56:25 PM Ordering Provider: SUSANNAH Carranza [facility] ([place]) LABORATORYOrdered By: Adrian Ponce on 09-13-2021 HIV 1 p24 Ab Ql (S) Non-Reactive (09/13/21 7:23 AM) Invalid Interpretation Code Non-Reactive AO Rapid Testing SS HIV 1+2 Ab IA.rapid Ql (Unsp spec) Non-Reactive (09/13/21 7:23 AM) Invalid Interpretation Code Non-Reactive AO Rapid Testing SS HIV P24 Int Non-Reactive Invalid Interpretation Code AO Rapid Testing SS RHIV 1/2 Ab Int Non-Reactive Invalid Interpretation Code AO Rapid Testing SS LABORATORYOrdered By: Es Hooker on 09-13-2021 Albumin BCP dye [Mass/Vol] 4.0 G/dL Invalid Interpretation Code 3.5 - 5.0 G/dL AO ADM SS Albumin/Globulin [Mass ratio] 1.2 {ratio} Invalid Interpretation Code 1.1 - 2.5 ratio AO ADM SS ALP [Catalytic activity/Vol] 124 U/L Invalid Interpretation Code 40 - 135 U/L AO ADM SS ALT With P-5'-P [Catalytic activity/Vol] 30 U/L Invalid Interpretation Code 14 - 59 U/L AO ADM SS AST With P-5'-P [Catalytic activity/Vol] 18 U/L Invalid Interpretation Code 10 - 40 U/L AO ADM SS Basophil, Absolute 0.1 103/mcL Invalid Interpretation Code 0.0 - 0.2 10^3/mcL AO Workflow SS Basophils/100 WBC (Bld) 0.9 % Invalid Interpretation Code 0.0 - 2.5 % AO Workflow SS Bilirubin [Mass/Vol] 0.4 mg/dL Invalid Interpretation Code 0.2 - 1.0 mg/dL AO ADM SS Calcium [Mass/Vol] 9.4 mg/dL Invalid Interpretation Code 8.4 - 10.2 mg/dL AO ADM SS Chloride [Moles/Vol] 105 mmol/L Invalid Interpretation Code 98 - 107 mmol/L AO ADM SS CO2 [Moles/Vol] 31 mmol/L Invalid Interpretation Code 22 - 29 mmol/L AO ADM SS Creatinine [Mass/Vol] 0.85 mg/dL Invalid Interpretation Code 0.55 - 1.02 mg/dL AO ADM SS Electrolyte Balance 6.0 mEq/L Invalid Interpretation Code 4.0 - 15.0 mEq/L AO ADM SS Eosinophil, Absolute 0.2 103/mcL Invalid Interpretation Code 0.0 - 0.4 10^3/mcL AO Workflow SS Eosinophils/100 WBC (Bld) 2.4 % Invalid Interpretation Code 0.0 - 7.0 % AO Workflow SS Erythrocyte distribution width (RBC) [Ratio] 12.8 % Invalid Interpretation Code 11.5 - 14.5 % AO Workflow SS Globulin 3.4 G/dL Invalid Interpretation Code AO ADM SS Glucose [Mass/Vol] 96 mg/dL Invalid Interpretation Code 70 - 105 mg/dL AO ADM SS HbA1c (Bld) [Mass fraction] 5.7 % Invalid Interpretation Code 4.3 - 6.4 % AO ADM SS Hematocrit (Bld) [Volume fraction] 40.1 % Invalid Interpretation Code 37.0 - 47.0 % AO Workflow SS Hgb 13.4 G/dL Invalid Interpretation Code 12.0 - 16.0 G/dL AO Workflow SS Lymphocyte, Absolute 2.5 103/mcL Invalid Interpretation Code 0.8 - 3.9 10^3/mcL AO Workflow SS Lymphocytes/100 WBC (Bld) 38.6 % Invalid Interpretation Code 10.0 - 50.0 % AO Workflow SS MCH (RBC) [Entitic mass] 30.2 pg Invalid Interpretation Code 27.0 - 31.2 pg AO Workflow SS MCHC 33.4 G/dL Invalid Interpretation Code 33.0 - 37.0 G/dL AO Workflow SS MCV (RBC) [Entitic vol] 90.7 fL Invalid Interpretation Code 80.0 - 94.0 fL AO Workflow SS Monocyte, Absolute 0.5 103/mcL Invalid Interpretation Code 0.2 - 1.0 10^3/mcL AO Workflow SS Monocytes/100 WBC (Bld) 8.3 % Invalid Interpretation Code 1.7 - 13.0 % AO Workflow SS Neutrophil, Absolute 3.2 103/mcL Invalid Interpretation Code 2.9 - 6.2 10^3/mcL AO Workflow SS Neutrophils/100 WBC (Bld) 49.8 % Invalid Interpretation Code 37.0 - 80.0 % AO Workflow SS Platelet 230 103/mcL Invalid Interpretation Code 130 - 400 10^3/mcL AO Workflow SS Platelet mean volume (Bld) [Entitic vol] 8.3 fL Invalid Interpretation Code 7.4 - 10.4 fL AO Workflow SS Potassium [Moles/Vol] 4.6 mmol/L Invalid Interpretation Code 3.5 - 5.1 mmol/L AO ADM SS Protein [Mass/Vol] 7.4 G/dL Invalid Interpretation Code 6.4 - 8.2 G/dL AO ADM SS RBC 4.42 106/mcL Invalid Interpretation Code 4.20 - 5.40 10^6/mcL AO Workflow SS Sodium [Moles/Vol] 142 mmol/L Invalid Interpretation Code 136 - 145 mmol/L AO ADM SS TSH Qn 2.38 m[IU]/L Invalid Interpretation Code 0.36 - 3.74 mcIU/mL AO ADM SS Urea nitrogen [Mass/Vol] 16 mg/dL Invalid Interpretation Code 7 - 18 mg/dL AO ADM SS Urea nitrogen/Creatinine [Mass ratio] 19 ratio Invalid Interpretation Code 7 - 27 ratio AO ADM SS WBC 6.5 103/mcL Invalid Interpretation Code 4.6 - 10.8 10^3/mcL AO Workflow SS LABORATORYOrdered By: SYSTEM SYSTEM on 09-13-2021 GFR 86 ml/min/1.73sqm Invalid Interpretation Code AO Chemistry S GFR Non- 71 ml/min/1.73sqm Invalid Interpretation Code AO Chemistry S Monocyte distribution width Auto (Bld) [Entitic vol] Not Performed 1 *NA* (09/13/21 7:21 AM) Invalid Interpretation Code 0.00 - 20.00 AO Hematology S Comment on above: Result Comment: MDW testing performed only on adult ER patients between the ages of 18-89 years. LABORATORYOrdered By: Gold Colon on 09-08-2021 C. trachomatis DNA TYSON+probe Ql (Unsp spec) Negative (09/08/21 9:53 AM) Invalid Interpretation Code Negative AH Auto Viro/Sero SS C. trachomatis Interp C. trachomatis DNA not detected. Specimen is presumptive negative forC. trachomatis.A negative result does not preclude C. trachomatis infection becauseresults depend on adequate specimen collection, absence of inhibitors,and sufficient DNA to be detected. Invalid Interpretation Code See CT Interp N AH Auto Viro/Sero SS N. gonorrhoeae DNA TYSON+probe Ql (Unsp spec) Negative (09/08/21 9:53 AM) Invalid Interpretation Code Negative AH Auto Viro/Sero SS N. gonorrhoeae Interp N. gonorrhoeae DNA not detected. Specimen is presumptive negative forN. gonorrhoeae. A negative result does not preclude Neisseria gonorrhoeaeinfection because results depend on adequate specimen collection, absenceof inhibitors, and sufficient DNA to be detected. Invalid Interpretation Code See NG Interp N AH Auto Viro/Sero SS LABORATORYOrdered By: DELROY RODRIGUEZ CONTRIBUTOR_SYSTEM on 09-08-2021 Trichomonas Vaginalis Amplification Negative Invalid Interpretation Code See Comment AO Sendouts SS Comment on above: Result Comment: This test was developed and its performance characteristics determined by [facility] [place] ([facility] It has not been cleared or approved by the FDA. [facility] is regulated under CLIA as qualified to perform high-complexity testing. This test is used for clinical purposes. It should not be regarded as investigational or for research. SOURCE: URINE Performed By: [place] [address] [employer] Supervisor: Clyde Ruiz III, M.D. CLIA#: [id number] Reference Range: Negative for Trichomonas vaginalis by amplification Laboratory - Specimen inform ationOrdered By: Gold Colon on 09-08-2021 Specimen source Nom (Unsp spec) Urine (09/08/21 9:53 AM) Invalid Interpretation Code AH Auto Viro/Sero SS Barber 09-07-2020 [facility] CAITLYN FERREIRA ([id number]) 1970 F Date Time Provider Department 09/07/20 [facility] During your visit today, we recorded the following information about you: Bhavya Love MA 09/07/2020 2:59 PM Signed Received signed form from pt to release copy of medical records to [facility] for continuity of care. Routed to PCP to advise if ok to send Med Recs, then change PCP. Bhavya Ho MD 09/07/2020 5:42 PM Signed OK to send records as requested and change PCP MD Jael Dover Ma 09/07/2020 5:48 PM Signed Record release form sent to Medical Records. PCP updated. Jael Dalton Ma Allergies As of Date: 09/07/2020 Noted Allergy Reaction AMOXICILLIN 10/23/2005 2 - Rash 6 - Diarrhea PENICILLINS 10/23/2005 2 - Rash 6 - Diarrhea Date Reviewed: 08/04/2020 Reviewed by: Ryne Reddy APRN.[employer] - Fully Assessed Reason for Visit: Release Of Medical Records [2017] Prescriptions as of 09/07/2020 Sig: TRAZODONE 50 MG TABLET Take 1 tablet by mouth daily * FERROUS GLUCONATE 324 MG (37.* Take 1 tablet by mouth daily * SERTRALINE 100 MG TABLET Take 1.5 tablets by mouth onc* Problem List As Of Date 09/07/2020 Noted Resolved Supervision of other normal [Z34.80] 12/27/2005 06/27/2010 SPRAIN OF NECK [S13.9XXA] 02/25/2007 Moderate episode of recurrent major depressive *03/15/2008 Amputation of toe, right, traumatic [S98.131A] 07/24/2012 Insomnia [G47.00] 10/15/2013 Encounter Status:Closed by JAEL DALTON MA on 09/07/20 Normal [facility]CAD[facility] [address] [place], [place] [address]LAMRHMWTV MAMM (CAD), BILATMR#: [id number] Acct: [id number]: CAITLYN FERREIRA Rep #: [id number]: 1970 F 46 From: Gaurang Keenan MDPCP: Lynn CASTELLON,Rupesh Status: REG CLIStudy: SCREENING MAMM (CAD), BILAT Date of Exam: 09/18/17Exam# [id number] Ordering Dr: ZAIRA ARANA, RENEEMAMMOGRAPHY - BILATERAL SCREENINGREASON FOR EXAM: Female, 46 years old. Routine annual screeningexamination.PE RTINENT HISTORY: Mother with breast cancer. Aunt with breast cancer.TECHNIQUE: Digital bilateral breast girish (3D mammographic acquisition) inthe CC and MLO projections. 2-D mediolateral oblique (MLO) and craniocaudad(CC) views of both breasts were obtained. CAD: Full Field DigitalMammography with Computer Added Detection was performed.COMPARISON: Comparison is made with prior examination dated November 04nd August 27, 2011. FINDIN GS:Breast Composition: The breasts are heterogeneously dense, which mayobscure small masses.There are no dominant masses or suspicious calcifications. Stableappearance of the small bilateral axillary lymph nodes.No other significant abnormalities are identified. There has been nosignificant change since the prior study. ORDER #: [id number] BI/SCREENING MAMM (CAD), BILATIMPRESSION:Stable bilateral screening mammogram. Yearly follow-up mammogramrecommended. (A) ASSESSME NT CATEGORY:BIRADS Category 2: Benign. A letter regarding these results will be sentto the patient by the facility within 30 days.Approximately 10% of breast cancers are not detected by mammography. Anormal mammogram should not delay biopsy of a clinically suspiciousabnormality.R [id number] Signed:Gaurang Keenan MD at 10:55 EDTTel [phone], Service support , BK: JACKIE MENESES CNP; Rupesh Ho MD Commission Clerk:Signed [facility] Encounters Encounter Date Encounter Type Care Provider Facility Start: 10-30-2024 End: 10-30-2024 [facility] Facility:[facility] Start: 10-30-2024 End: 10-30-2024 Patient encounter procedure SUSANNAH ALMANZARKO DO [facility] Start: 12-12-2023 End: 12-12-2023 ambulatory SUSANNAH JENELLEKO DO [facility] Start: 12-12-2023 End: 12-12-2023 Patient encounter procedure SUSANNAH JENELLEKO DO [facility] Start: 11-11-2023 ambulatory SUSANNAH JENELLEKO DO [facility] Start: 11-06-2023 End: 11-06-2023 ambulatory SUSANNAH JENELLEKO DO [facility] Start: 11-06-2023 End: 11-06-2023 Patient encounter procedure SUSANNAH JENELLEKO DO [facility] Start: 01-10-2023 End: 01-10-2023 ambulatory CHRISTIANO SANCHEZ Facility:A Start: 10-19-2022 End: 10-19-[address] CHRISTIANO SANCHEZ DO [facility] Start: 09-21-2021 End: 09-21-[address] CHRISTIANO SANCHEZ DO [facility] Start: 09-13-2021 End: 09-13-[address] CHRISTIANO SANCHEZ DO [facility] Start: 09-08-2021 End: 09-12-[address] CHRISTIANO SANCHEZ DO [facility] Start: 09-08-2021 End: 09-08-[address] CHRISTIANO SANCHEZ DO [facility] Start: 03-17-2021 End: 03-17-2021 Patient encounter procedure SUSANNAH GRIMES DO [facility] Start: 07-07-2020 Phys/qhp telephone evaluation 21-30 min Rosario Michel MD Work Phone: [facility] Primary Care Comment on above: Acute maxillary sinu sitis, recurrence not specified (Primary Dx) Start: 04-14-2020 Phys/qhp telephone evaluation 11-20 min Yuni Coker MD [facility] Primary Care Comment on above: Acute sinusitis, rec urrence not specified, unspecified location (Primary Dx) Start: 09-18-2017 Ambulatory JUANY Facility: [facility] Procedures Date Procedure Procedure Detail Performing Clinician Start: 09-07-2001 Colonoscopy SUSANNAH CORTEZKayla DO Amputation of toe SUSANNAH GONZALEZ DO Comment on above: rt. foot all toes- 72 Ankle region structu re (body structure) SUSANNAH GRIMES DO Comment on above: rt-stabilization - 85 Appendectomy SUSANNAH GRIMES Randolph Garza Comment on above: 1989 Cervix uteri structu re (body structure) SUSANNAH GRIMES DO Comment on above: [id number] Deliveries by george an (finding) SUSANNAH GRIMES DO Comment on above: 2002,2006 Structure of eye pro per (body structure) SUSANNAH GRIMES DO Comment on above: lasik-bilateral Tonsillectomy and adenoidectomy SUSANNAH GRIMES DO Comment on above: 1987 Plan of Treatment Date Care Activity Detail Author Start: 01-06-2022 Influenza vaccination Influenza Vacc ine (#1) [facility] Start: 2020 Measurement of occul t blood in single stool specimen FIT [facility] Start: 2020 Screening for malign ant neoplasm of colon CRC Screening [facility] Start: 2020 Shingles (RZV) Vacci ne (1 of 2) Shingles (RZV) Vaccine (1 of 2) [facility] Start: 09-26-2015 Cholesterol [Mass/vo lume] in Serum or Plasma Cholesterol [facility] Start: 2010 Screening for malign ant neoplasm of breast Mammography [facility] Start: 09-26-1991 Screening for malign ant neoplasm of cervix Pap Smear [facility] Start: 1989 Tetanus vaccination Tetanus (T d or Tdap) Booster [facility] Start: 1988 Hepatitis C screening Hepatitis C An tibody [facility] Start: 1988 Tetanus + diphtheria + acellular pertussis vaccine (product) Tdap Booster [facility] Start: 1985 HIV screening HIV Test [facility] Start: 03-27-1971 COVID-19 Vaccine (#1) COVID-19 Vacci ne (#1) [facility] Start: 1970 Screening for malign ant neoplasm of colon Colonoscopy [facility] Immunizations Immunization Date Immunization Notes Care Provider Gianfranco canas 03-18-2024 influenza, injectabl e, quadrivalent, contains preservative; Translations: [Fluarix PF Prefilled Syringe ] SUSANNAH GRIMES DO [facility] 08-26-2020 SARS-CoV-2 mRNA (tozinameran) vaccine SUSANNAH GRIMES DO [facility] 08-05-2020 SARS-CoV-2 mRNA (tozinameran) vaccine SUSANNAH GRIMES DO [facility] 04-06-2020 influenza virus vaccine, unspecified formulation SUSANNAH GRIMES DO [facility] 05-12-2019 influenza virus vaccine, unspecified formulation SUSANNAH GRIMES DO [facility] Payers Date Payer Category Payer Private Health Insurance [id number] 2022 Unknown [id number] 2020 Unknown [employer] - HMO/PPO/POS SUPERMED PPO/CLASSIC/PLUS [id number] 2020-[address] [place] [address] PPO [id number] 2017 Unknown [id number] 1970 Unknown [id number] 1970 Unknown [id number] 1970 Unknown [id number] 1970 Unknown [id number] 1970 Unknown [id number] Self-pay [id number] Social History Date Type Detail Facility Start: 08-29-2020 End: 10-12-2021 Never smoked tobacco (finding) [facility] Sex Assigned At Female [facility] Start: 1970 Sex Assigned At Not on file [facility] O[facility] Start: 01-22-2019 Sex Female (finding) [facility] Clinical Notes 08-04-2020 to 10-30-2024 Note Date & Type Note Facility 07-25-2025 Note Exam Date Time Procedure Performing Provider Status 10/30/24 2:05 PM BD Bone Density DEXA Axial Skeleton RIVKA RENO DO; Auth (Verified) [id number] ORIGINAL EXAMINATION: BONE DENSITOMETRY 10/30/2024 2:07 pm TECHNIQUE: A bone density dual x-ray absorptiometry (DEXA) scan was performed of the axial (e.g. hips, spine) and/or appendicular (e.g. radius) skeleton as appropriate. COMPARISON: None HISTORY: ORDERING SYSTEM PROVIDED HISTORY: Reason for Exam: Osteoporosis Screening FINDINGS: T Score Left Femoral Neck: -1.1 Left Femoral Neck: 0.724 (g/cm2) T Score Left Hip: -0.4 Left Hip: 0.888 (g/cm2) T Score Lumbar Spine: 0.2 Lumbar Spine: 1.073 (g/cmd2) FRAX: 10 year fracture risk assessment Major osteoporotic fracture: 5.5% Hip fracture: 0.3% IMPRESSION: Osteopenia by WHO criteria. World Health Organization criteria: (Comparing with young normal sex matched population) - Normal: T-score at or above -1 SD (standard deviation) - Osteopenia: T-score between -1 and -2.5 SD - Osteoporosis: T-score at or below -2.5 SD The NOF recommends that FDA-approved medical therapies be considered in post-menopausal women and men age >/= 50 years with a: * Hip or vertebral fracture, or * T-score of /= 20% for major osteoporotic fractures or * >/= 3% for hip fractures All treatment decisions require clinical judgement and consideration of individual patient factors, including patient preferences, comorbidities, previous drug use, risk factors not captured in the FRAX registered model (e.g., frailty, falls, vitamin D deficiency, increased bone turnover, interval significant decline in bone density) and possible under- or over-estimation of fracture risk by FRAX. Interpreted by: Rivka Reno DO Preliminary Report By: Rivka Reno DO Electronically signed By Rivka Reno DO Dictated Date: 10/30/2024 2:39:11 PM Prelim Date: 10/30/2024 2:39:38 PM Sign Date: 10/30/2024 2:39:38 PM Ordering Provider: [place] [id number] Note ORIGINAL EXAMINATION: AP lateral obliques 4 XRAY VIEWS OF THE LUMBAR SPINE11/06/2023 9:23 am COMPARISON: None HISTORY: ORDERING SYSTEM PROVIDED HISTORY: Reason for Exam: low back pain, left sciatica, FINDINGS: 5 lumbar-type vertebral bodies show normal height and AP alignment. There is no fracture or aggressive lesion. Mild L5-S1 disc space narrowing. No significant facet arthropathy. No spondylolysis on the oblique views. Symmetric normal SI joints. IMPRESSION: Mild degenerative changes. No acute findings. Interpreted by: Andrew Deluca MD Preliminary Report By: Andrew Deluca MD Electronically signed By Andrew Deluca MD Dictated Date: 11/06/2023 4:55:49 PM Prelim Date: 11/06/2023 4:56:25 PM Sign Date: 11/06/2023 4:56:25 PM [facility]ing [facility] Note HNO ID: [id number] Author: Ryne Reddy APRN.[employer] Service: ? Author Type: Nurse Practitioner Type: Progress Notes Filed: 08/04/2020 8:03 AM Note Text: Telephone Visit. Called patient at 6:55 am for 7:00 am appt. No answer. Left message to return call to go forward with visit. Ryne Reddy APRN.CNPOhio State Harding HospitalEvaluation + Plan note Future Appointments Appointment Date:04/14/2021 01:30:00 PM Scheduled Provider:CHRISTIANO SANCHEZ DO Location:[facility] Appointment Type: Wellness Annual Appointment Date:05/17/2021 02:30:00 PM Scheduled Provider:SUSANNAH GRIMES DO Location:[facility] Appointment Type: OV [facility] Evaluation + Plan note Future Appointments Appointment Date:10/12/2021 09:30:00 AM Scheduled Provider:CHRISTIANO SANCHEZ DO Location:[facility] Appointment Type: OV Follow Up Future Scheduled Tests Laboratory* Rapid Plasma Reagin Test 09/08/21 * Thyroid Stimulating Hormone 09/08/21 * A1C Hemoglobin 09/08/21 * Complete Blood Count 09/08/21 * Hepatitis C Antibody IgG 09/08/21 * HIV 1/2 Ab 09/08/21 * Complete Metabolic Panel 09/08/21 Radiology* XR Foot Minimum 3 Views Left 09/08/21 * XR Chest 2 Views (PA & Lateral) 04/14/21 [facility] Evaluation + Plan note Future Appointments Appointment Date:10/12/2021 09:30:00 AM Scheduled Provider:CHRISTIANO SANCHEZ DO Location:[facility] Appointment Type:PC OV Follow Up Diagnostic Tests Pending * Hepatitis C Antibody IgG 09/13/21 * Rapid Plasma Reagin Test 09/13/21 Future Scheduled Tests Radiology* XR Foot Minimum 3 Views Left 09/08/21 * XR Chest 2 Views (PA & Lateral) 04/14/21 [facility] Evaluation + Plan note Future Appointments Appointment Date:10/12/2021 09:30:00 AM Scheduled Provider:CHRISTIANO SANCHEZ DO Location:[facility] Appointment Type:PC OV Follow Up Future Scheduled Tests Radiology* XR Foot Minimum 3 Views Left 09/08/21 * XR Chest 2 Views (PA & Lateral) 04/14/21 [facility] Evaluation + Plan note Future Appointments Appointment Date:10/30/2022 02:30:00 PM Scheduled Provider:CHRISTIANO SANCHEZ DO Location:[facility] Appointment Type:PC OV Follow Up Appointment Date:11/01/2022 07:00:00 AM Scheduled Provider: Location:[facility] Appointment Type:SL C-PAP (Continuous Positive Airway Pre [facility] Evaluation + Plan note Future Appointments Appointment Date:12/12/2023 10:00:00 AM Scheduled Provider:SUSANNAH GRIMES DO Location:[facility] Appointment Type:PC OV Future Scheduled Tests Laboratory* Vitamin B12 Level 11/06/23 * A1C Hemoglobin 11/06/23 * Complete Blood Count 11/06/23 * Lipid Profile 11/06/23 * Vitamin D Level 11/06/23 * Complete Metabolic Panel 11/06/23 Radiology* MA Mammo Screening Bilateral w/ Girish 11/06/23 [facility] Evaluation + Plan note Future Appointments Appointment Date:12/18/2023 02:00:00 PM Scheduled Provider:SUSANNAH GRIMES DO Location:[facility] Appointment Type:PC OV Future Scheduled Tests Radiology* MA Mammo Screening Bilateral w/ Girish 11/06/23 [facility] Evaluation + Plan note Future Appointments Appointment Date:11/23/2024 03:00:00 PM Scheduled Provider:IVY OCONNOR MD Location: [facility] Appointment Type: [facility] Appointment Date:01/20/2025 04:00:00 PM Scheduled Provider:SUSANNAH GRIMES DO Location:[facility] Appointment Type:PC OV Follow Up Future Scheduled Tests Laboratory* Vitamin B12 Level 10/12/24 * A1C Hemoglobin 10/12/24 * Complete Blood Count 10/12/24 * Lipid Profile 10/12/24 * Vitamin D Level 10/12/24 * Complete Metabolic Panel 10/12/24 Radiology* MA Mammo Screening Bilateral w/ Girish 11/06/23 [facility] Evaluation note* Diagnosis Acute maxillary sinusitis, recurrence not specified- [facility] Acute sinusitis, recurrence not specified, unspecified location- [facility] Narrative No data available for this section [facility] Hospital Discharge instructions No data available for this section [facility] Progress note No data available for this section [facility] Summary Purpose Family History No Family History Records FoundNo Family History Records Found No data available for this section No data available for this section No Family History Records Found No data available for this section No Family History Records Found Advance Directives No Advanced Directives Records FoundNo Advanced Directives Records FoundNo Advanced Directives Records FoundNo Advanced Directives Records Found Additional Source Comments INFORMATION SOURCE (unrecogn ized section and content) DATE CREATED AUTHOR 09/23/2017 [facility] DATE CREATED AUTHOR AUTHOR'S ORGANIZ ATION 06/01/2021 [facility] DATE CREATED AUTHOR AUTHOR'S ORGANIZ ATION 12/14/2023 [facility] ([place]) DATE CREATED AUTHOR AUTHOR'S ORGANIZ ATION 11/05/2024 [facility] Care Team (unrecognized sect ion and content) Personnel Name: SUSANNAH GRIMES DO Address: [address] [place] [address] Personnel Name: SUSANNAH GRIMES DO Address: [address] [place] [address] Personnel Name: SUSANNAH GRIMES DO Address: [address] [place] [address] Personnel Name: SUSANNAH GRIMES DO Address: [address] [place] [address] Care Team Personnel Name: SUSANNAH GRIMES DO Position: P4 Physician - Primary Care Member Role: Primary Care Physician Address: Address: [address] [place] [address] Care Team Related Persons Name: JASON NICK Name: GABRIELLA NICK Care Team Personnel Name: SUSANNAH GRIMES DO Position: P4 Physician - Primary Care Member Role: Primary Care Physician Address: Address: [address] [place] [address] Care Team Related Persons Name: JASON NICK Name: GABRIELLA NICK Care Team Personnel Name: SUSANNAH GRIMES DO Position: P4 Physician - Primary Care Member Role: Primary Care Physician Address: Address: [address] [place] [address] Care Team Related Persons Name: JASON NICK Name: GABRIELLA NICK Care Team Personnel Name: SUSANNAH GRIMES DO Position: P4 Physician - Primary Care Member Role: Primary Care Physician Address: [address] [place] [address] Telecom: Care Team Related Persons Name: JASON NICK FOR RECORDS PERTAINING TO PATIENTS WHO ARE OR HAVE BEEN ENROLLED IN A CHEMICAL DEPENDENCY/SUBSTANCEABUSE PROGRAM, SOME INFORMATION MAY BE OMITTED. This clinical summary was aggregated from multiple sources. Caution should be exercised in using it in the provision of clinical care. This summary normalizes information from multiple sources, and as a consequence, information in this document may materially change the coding, format and clinical context of patient data. In addition, data may be omitted in some cases. CLINICAL DECISIONS SHOULD BE BASED ON THE PRIMARY CLINICAL RECORDS. [facility] [employer] [facility]. provides no warranty or guarantee of the accuracy or completeness of information in this document.
== END | disposition home or self-care (01) ==
PROVIDERS: PCP Student in an Organized Health Care Education/Training Program; Referring Provider Student in an Organized Health Care Education/Training Program; Visit Provider Student in an Organized Health Care Education/Training Program
DX: R10.9 Unspecified abdominal pain (principal); Z86.0100 Personal history of colon polyps, unspecified
CPT/HCPCS: 36415; 80053; 85025

== ENCOUNTER → 2024-11-21 | Outpatient (CLI) | payer BC, SELFPAY ==
--- OUTSIDE RECORDS SUMMARY | 2024-11-21 07:57 | XMS RPT_ITS | CCD ---
Author Organization [facility] ion Partnership [facility] Care Team Providers Care Veterinary Science Teacher Name Role Phone SUSANNAH GRIMES DO Primary Care Physician [phone] Unavailable Primary Care Provider UnavailCHRISTIANO Frye Attending Unavailable SYDNEY LANDA, SUSANNAH Primary Care Unavailable SYDNEY LANDA, SUSANNAH Attending Unavailable SYDNEY LANDA, SUSANNAH Primary Care Unavailable HALYOVANI LANDA, SUSANNAH Primary Care Unavailable HALYOVANI LANDA, SUSANNAH Attending Unavailable HALYOVANI LANDA, SUSANNAH Attending Unavailable SYDNEY LANDA, SUSANNAH Primary Care Unavailable SYDNEY LANDA, SUSANNAH Primary Care Unavailable SYDNEY LANDA, SUSANNAH Attending Unavailable Susannah Grimes Primary Care Unavailable Susannah Grimes Referring Unavailable Mary Bush Attending Unavailable Anam Paniagua Attending Unavailable Susannah Grimes Primary Care Unavailable Mary Bush Attending Unavailable Mary Bush Referring Unavailable Susannah Grimes Primary Care Unavailable Mary Bush Attending Unavailable Mary Bush Referring Unavailable Susannah Grimes Primary Care Unavailable Allergies Allergy Classification Reported Allergen(s) Allergy Type Date of Onset Reaction(s) Facility (9 sources) Amoxicillin; Translations: [amoxicillin] Drug Allergy Diarrhea (finding), Eruption of skin (disorder) [facility] (9 sources) Benzodiazepines ; Translations: [benzodiazepine s] Propensity to adverse reactions to drug hypersomnolence [facility] (9 sources) buPROPion; Translations: [bupropion] Drug Allergy Suicidal (finding) [facility] (9 sources) OLANZapine; Translations: [olanzapine] Drug Allergy extreme fatigue [facility] (9 sources) Penicillin; Translations: [penicillin] Drug Allergy Diarrhea (finding), Eruption of skin (disorder) [facility] (9 sources) zaleplon; Translations: [zaleplon] Drug Allergy Hallucinations (finding) [facility] (9 sources) zolpidem; Translations: [zolpidem] Drug Allergy became violent [facility] (1 source) Penicillins Drug allergy (disorder) 01-23-20 [facility] Repository Medications Current Medications Medication Drug Class(es) Dates [...] spasm, # 30 tab(s), 2 Refill(s), Pharmacy: [facility], 163, cm, 03/18/24 14:35:00 EST, Height, kg, 03/18/24 14:35:00 EST, Dosing Weight Start Date: 03/18/24 Status: Ordered Quantity: 30.0 Unit: tab(s) Repeat number: 3 Start: 11-06-2023 cyclobenzaprin e 10 mg oral tablet Dose : 10 mg = 1 tab(s), Oral, TID, PRN as needed for spasm, # 30 tab(s), 2 Refill(s), Pharmacy: [facility], 163, cm, 11/06/23 8:08:00 EDT, Height, [...] nostril, # 1 EA, 5 Refill(s), Pharmacy: [facility], 164, cm, 10/12/24 16:05:00 EDT, Height, [...] nostril, # 1 EA, 5 Refill(s), Pharmacy: [facility], 163, cm, 11/06/23 8:08:00 EDT, Height, kg, 11/06/23 8:08:00 EDT, Dosing Weight Start Date: 11/06/23 Stop Date: 05/04/24 Status: Ordered Start: 07-23-2022 End: 01-19-2023 take 1 dose nasal route once daily as needed for congestion fluticasone 50 mcg/inh NASAL spray Dose = 2 spray(s), Nostril, each, qDay, PRN PRN Nasal congestion, in each nostril, # 1 EA, 5 Refill(s), Pharmacy: [facility], 162, cm, 12/22/21 14:35:00 EDT, Height, [...] TID, # 90 cap(s), 1 Refill(s), Pharmacy: [facility], Sciatica, 163, cm, 11/06/23 8:08:00 EDT, Height, 81.1, kg, 11/06/23 8:08:00 EDT, Dosing Weight Start Date: 11/06/23 Stop Date: 01/05/24 Status: Ordered hydrOXYzine hydrochloride 25 mg oral tablet (9 sources) Antihistamine Start: 10-12-2024 End: 01-10-2025 take 0.5-1 tablets by mouth once daily as needed hydrOXYzine hydrochloride 25 mg oral tablet 0.5-1 tab, Oral, qDay, PRN prn, # 30 EA, 2 Refill(s), Pharmacy: [facility], 164, cm, 10/12/24 16:05:00 EDT, Height, kg, 10/12/24 16:05:00 EDT, Dosing Weight Start Date: 10/12/24 Stop Date: 01/10/25 Status: Ordered Quantity: 30.0 Unit: EA Repeat number: 3 Start: 11-06-2023 End: 02-04-2024 take 0.5-1 tablets by mouth once daily as needed hydrOXYzine hydrochloride 25 mg oral tablet 0.5-1 tab, Oral, qDay, PRN prn, # 30 EA, 2 Refill(s), Pharmacy: [facility], 163, cm, 11/06/23 8:08:00 EDT, Height, kg, 11/06/23 8:08:00 EDT, Dosing Weight Start Date: 11/06/23 Stop Date: 02/04/24 Status: Ordered Start: 09-13-2020 End: 10-13-2020 take 0.5-1 tablets by mouth once daily as needed hydrOXYzine hydrochloride 25 mg oral tablet 0.5-1 tab, Oral, qDay, PRN prn, # 30 EA, 0 Refill(s), Pharmacy: [facility], 165, cm, 09/13/20 8:03:00 EDT, Height, [...] medication., # 30 tab(s), 0 Refill(s), Pharmacy: [facility], 164, cm, 10/12/24 16:05:00 EDT, Height, [...] medication., # 30 tab(s), 0 Refill(s), Pharmacy: [facility], 163, cm, 11/06/23 8:08:00 EDT, Height, kg, 11/06/23 8:08:00 EDT, Dosing Weight Start Date: 11/06/23 Stop Date: 12/06/23 Status: Ordered venlafaxine 100 mg oral tablet (9 sources) Serotonin and Norepinephrine Reuptake Inhibitor Start: 10-12-2024 End: 04-10-2025 venlafaxine 100 mg oral tablet Dose : 100 mg = 1 tab(s), Oral, TID, with food, # 270 tab(s), 1 Refill(s), Pharmacy: [facility], 164, cm, 10/12/24 16:05:00 EDT, Height, kg, 10/12/24 16:05:00 EDT, Dosing Weight Start Date: 10/12/24 Stop Date: 04/10/25 Status: Ordered Quantity: 270.0 Unit: tab(s) Repeat number: 2 Start: 11-06-2023 End: 01-05-2024 venlafaxine 100 mg oral tabl et Dose : 100 mg = 1 tab(s), Oral, TID, with food, # 90 tab(s), 1 Refill(s), Pharmacy: [facility], 163, cm, 11/06/23 8:08:00 EDT, Height, kg, 11/06/23 8:08:00 EDT, Dosing Weight Start Date: 11/06/23 Stop Date: 01/05/24 Status: Ordered Start: 09-18-2022 End: 03-17-2023 venlafaxine 100 mg oral tabl et Dose : 100 mg = 1 tab(s), Oral, TID, with food, # 270 tab(s), 1 Refill(s), Pharmacy: [facility], 163, cm, 09/18/22 9:58:00 EDT, Height, kg, 09/18/22 9:58:00 EDT, Dosing Weight Start Date: 09/18/22 Stop Date: 03/17/23 Status: Ordered Start: 12-14-2020 End: 06-12-2021 venlafaxine 225 mg oral tabl et, extended release Dose : 225 mg = 1 tab(s), Oral, qDay, # 90 tab(s), 1 Refill(s), Pharmacy: [facility], 166, cm, 12/14/20 13:58:00 EDT, Height, kg, 12/14/20 13:58:00 EDT, Dosing Weight Start Date: 12/14/20 Stop Date: 06/12/21 Status: Ordered Vitamin B12 500 mcg oral tab let (3 sources) Start: 10-12-2024 Vitamin B12 50 0 mcg oral tablet Dose : 500 mcg = 1 tab(s), Oral, qDay, # 90 tab(s), 1 Refill(s), Pharmacy: [facility], 164, cm, 10/12/24 16:05:00 EDT, Height, kg, 10/12/24 16:05:00 EDT, Dosing Weight Start Date: 10/12/24 Status: Ordered Quantity: 90.0 Unit: tab(s) Repeat number: 2 Start: 11-06-2023 Vitamin B12 50 0 mcg oral tablet Dose : 500 mcg = 1 tab(s), Oral, qDay, # 90 tab(s), 1 Refill(s), Pharmacy: [facility], 163, cm, 11/06/23 8:08:00 EDT, Height, kg, 11/06/23 8:08:00 EDT, Dosing Weight Start Date: 11/06/23 Status: Ordered Vitamin D3 125 mcg (5000 int l units) oral capsule (1 source) Start: 10-12-2024 Vitamin D3 125 mcg (5000 intl units) oral capsule Dose : 125 mcg = 1 cap(s), Oral, qDay, # 100 cap(s), 1 Refill(s), Pharmacy: [facility], 164, cm, 10/12/24 16:05:00 EDT, Height, [...] food, # 90 tab(s), 1 Refill(s), Pharmacy: [facility], 163, cm, 11/06/23 8:08:00 EDT, Height, kg, 11/06/23 8:08:00 EDT, Dosing Weight Start Date: 11/06/23 Stop Date: 05/04/24 Status: Ordered Start: 10-01-2022 End: 12-30-2022 Vitamin D3 50 mcg (2000 intl units) oral tablet Dose : 2,000 unit(s) = 1 tab(s), Oral, qDayM, with food, # 90 tab(s), 0 Refill(s), Pharmacy: [facility], 163, cm, 09/18/22 9:58:00 EDT, Height Start Date: 10/01/22 Stop Date: 12/30/22 Status: Ordered Completed/Discontinued Medications Medication Drug Class(es) Dates Sig (Normalized) Sig (Original) [id number] 200 actuat albuterol 0.09 mg/actuat metered dose inhaler (8 sources) beta2-Adrenergic Agonist Start: 11-06-2023 End: 12-18-2023 ProAir HFA MDI (90 mcg/inh) inhalation aerosol 2 puff(s), Inhalation, q6hr, PRN as needed for wheezing, 1-2 puffs, # 18 gram(s), 2 Refill(s), Pharmacy: [facility], 163, cm, 11/06/23 8:08:00 EDT, Height, kg, 11/06/23 8:08:00 EDT, Dosing Weight Start Date: 11/06/23 Stop Date: 12/18/23 Status: Ordered Quantity: 18.0 Unit: g Repeat number: 3 Start: 04-14-2021 End: 04-28-2021 ProAir HFA MDI (90 mcg/inh) inhalation aerosol 2 puff(s), Inhalation, q6hr, PRN as needed for wheezing, 1-2 puffs, # 18 gram(s), 0 Refill(s), Pharmacy: [facility], 162, cm, 04/14/21 11:22:00 EST, Height, kg, 04/14/21 11:22:00 EST, Dosing Weight Start Date: 04/14/21 Stop Date: 04/28/21 Status: Ordered Problems Problem Classification Problem Date Documented Da te Episodic/Chronic Abdominal pain (2 sources) Unspecified abdominal pain; Translations: [Unspecified abdominal pain] Onset: 11-06-2024 Episodic Anxiety disorders (20 sources) Generalized anxiety disorder; [...] conditions (not mental disorders or infectious disease) (6 sources) Viral screening status; Translations: [Encounter for [...] Traumatic partial amputation of right foot 11-06-2023 Unclassified (2 sources) Personal history of colon polyps, unspecified; Translations: [Personal history of colon polyps, unspecified] Onset: 11-06-2024 Viral infection (5 sources) Respiratory syncytial virus infection 04-21-2021 Episodic Results Test Name Value Interpretation Reference Range Facility CBC W/Diff, Automatedon 08-0 Absolute Lymph 2.39 X10 3/uL Normal 0.83-4.51 [facility] Comment on above: Performed By: #### L 500.4050, L100.0100 #### [facility] [address] [place], [address] Absolute Neut 4.2 X10 3/uL Normal 2.0-7.7 [facility] Comment on above: Performed By: #### L 500.4050, L100.0100 #### [facility] [address] [place], [address] Basophils/100 WBC (Bld) 1.1 % High 0-1 [facility] Comment on above: Performed By: #### L 500.4050, L100.0100 #### [facility] [address] [place], [address] Eosinophils/100 WBC (Bld) 1.5 % Normal 0-5 [facility] Comment on above: Performed By: #### L 500.4050, L100.0100 #### [facility] [address] [place], [address] Erythrocyte distribution width (RBC) [Ratio] 12.5 % Normal 11.6-14.6 [facility] Comment on above: Performed By: #### L 500.4050, L100.0100 #### [facility] [address] [place], [address] Hematocrit (Bld) [Volume fraction] 45.8 % Normal 37-47 [facility] Comment on above: Performed By: #### L 500.4050, L100.0100 #### [facility] [address] [place], [address] Hemoglobin (Bld) [Mass/Vol] 15.0 g/dL Normal 12.0-15.0 [facility] Comment on above: Performed By: #### L 500.4050, L100.0100 #### [facility] [address] [place], [address] IG% 0.300 Normal 0.0-0.9 [facility] Comment on above: Result Comment: IG% - Immature Granulocytes (promyelocytes, myelocytes and metamyelocytes) > 1% indicates that a LEFT SHIFT is Present. Performed By: #### L 500.4050, L100.0100 #### [facility] [address] [place], [address] Lymphocytes/100 WBC (Bld) 32.6 % Normal 19-41 [facility] Comment on above: Performed By: #### L 500.4050, L100.0100 #### [facility] [address] [place], [address] MCH (RBC) [Entitic mass] 31.0 pg Normal 27.0-32.0 [facility] Comment on above: Performed By: #### L 500.4050, L100.0100 #### [facility] [address] [place], [address] MCHC (RBC) [Mass/Vol] 32.8 g/dL Normal 32-36 [place] Comment on above: Performed By: #### L 500.4050, L100.0100 #### [facility] [address] [place], [address] MCV (RBC) [Entitic vol] 94.6 fL Normal 81-99 [facility] Comment on above: Performed By: #### L 500.4050, L100.0100 #### [facility] [address] [place], [address] Monocytes/100 WBC (Bld) 7.9 % Normal 0-10 [facility] Comment on above: Performed By: #### L 500.4050, L100.0100 #### [facility] [address] [place], [address] Neutrophils/100 WBC (Bld) 56.6 % Normal 47-70 [facility] Comment on above: Performed By: #### L 500.4050, L100.0100 #### [facility] [address] [place], [address] Nucleated RBC (Bld) [#/Vol] 0 10*3/uL Normal 0-5 [facility] Comment on above: Performed By: #### L 500.4050, L100.0100 #### [facility] [address] [place], [address] Platelet mean volume (Bld) [Entitic vol] 10.4 fL Normal 6.2-12.0 [facility] Comment on above: Performed By: #### L 500.4050, L100.0100 #### [facility] [address] [place], [address] Platelets (Bld) [#/Vol] 258 10*3/uL Normal 150-450 [facility] Comment on above: Performed By: #### L 500.4050, L100.0100 #### [facility] [address] [place], [address] RBC (Bld) [#/Vol] 4.84 10*6/uL Normal 4.2-5.4 [facility] Comment on above: Performed By: #### L 500.4050, L100.0100 #### [facility] [address] [place], [address] RDW SD 43.4 fl Normal 35.1-43.9 [facility] Comment on above: Performed By: #### L 500.4050, L100.0100 #### [facility] [address] [place], [address] WBC (Bld) [#/Vol] 7.3 10*3/uL Normal 4.4-11.0 [facility] Comment on above: Performed By: #### L 500.4050, L100.0100 #### [facility] [address] [place], [address] Comprehensive Metabolic Prof mion 11-06-2024 Albumin [Mass/Vol] 4.5 g/dL Normal 3.5-5.0 [facility] Comment on above: Performed By: #### L 500.4050, L100.0100 #### [facility] [address] [place], [address] Albumin/Globulin [Mass ratio] 1.4 {ratio} Normal 0.9-2.4 [facility] Comment on above: Performed By: #### L 500.4050, L100.0100 #### [facility] [address] [place], [address] ALK PHOS 143 U/L High 35-104 [facility] Comment on above: Performed By: #### L 500.4050, L100.0100 #### [facility] [address] [place], [address] ALT [Catalytic activity/Vol] 58 U/L High <=34 [facility] Comment on above: Performed By: #### L 500.4050, L100.0100 #### [facility] [address] [place], [address] AST [Catalytic activity/Vol] 49 U/L High <=31 [facility] Comment on above: Performed By: #### L 500.4050, L100.0100 #### [facility] [address] [place], [address] Bilirubin [Mass/Vol] 0.26 mg/dL Normal 0.00-1.30 [facility] Comment on above: Performed By: #### L 500.4050, L100.0100 #### [facility] [address] [place], [address] BUN/CRE 17.6 RATIO Normal 10-20 [facility] Comment on above: Performed By: #### L 500.4050, L100.0100 #### [facility] [address] [place], [address] Calcium [Mass/Vol] 9.8 mg/dL Normal 7.6-11.0 [facility] Comment on above: Performed By: #### L 500.4050, L100.0100 #### [facility] [address] [place], [address] Chloride [Moles/Vol] 103 mmol/L Normal 98-108 [facility] Comment on above: Performed By: #### L 500.4050, L100.0100 #### [facility] [address] [place], [address] CO2 [Moles/Vol] 25.8 mmol/L Normal 21.0-32.0 [facility] Comment on above: Performed By: #### L 500.4050, L100.0100 #### [facility] [address] [place], [address] Creatinine [Mass/Vol] 0.89 mg/dL Normal 0.70-1.20 [place] Comment on above: Performed By: #### L 500.4050, L100.0100 #### [facility] [address] [place], [address] GAP 13 Normal 5-15 [facility] Comment on above: Performed By: #### L 500.4050, L100.0100 #### [facility] [address] [place], [address] GFR/1.73 sq M.predicted among non-blacks MDRD (S/P/Bld) [Vol rate/Area] 78 mL/min/{1.73_m2} Normal >60 [facility] Comment on above: Result Comment: mL/m in/1.73m2 CKD-EPI Creatinine Equation (2020) Performed By: #### L 500.4050, L100.0100 #### [facility] [address] [place], [address] Globulin (S) [Mass/Vol] 3.3 g/dL Normal 2.2-4.2 [facility] Comment on above: Performed By: #### L 500.4050, L100.0100 #### [facility] [address] [place], [address] Glucose [Mass/Vol] 92 mg/dL Normal 70-99 [facility] Comment on above: Performed By: #### L 500.4050, L100.0100 #### [facility] [address] [place], [address] Potassium [Moles/Vol] 4.2 mmol/L Normal 3.3-5.1 [facility] Comment on above: Performed By: #### L 500.4050, L100.0100 #### [facility] [address] [place], [address] Sodium [Moles/Vol] 142 mmol/L Normal 133-145 [facility] Comment on above: Performed By: #### L 500.4050, L100.0100 #### [facility] [address] [place], [address] T PROT 7.7 g/dL Normal 5.9-8.4 [facility] Comment on above: Performed By: #### L 500.4050, L100.0100 #### [facility] [address] [place], [address] Urea nitrogen [Mass/Vol] 16 mg/dL Normal 4-19 [facility] Comment on above: Performed By: #### L 500.4050, L100.0100 #### [facility] [address], [address] Gastroenterology Visit Repor ton 11-06-[address] [facility] [address] [address] OFFICE VISIT Date of Service: 11/06/24 MR#: [id number] Acct: [id number] Name: CAITLYN FERREIRA Rep #: [id number] : 1970 Provider: LAMBERT Valdez Age/Sex: 54/F Location: [facility] Status: Signed Intake Intake Visit Reasons: Unspecified Abdominal Pain Chief Complaint: abd pain Allergies Penicillins (PCN) Allergy (Intermediate, Verified 01/23/16 09:43) Rash Medications ???Medication ???Instructions ???Recorded ???Confirmed ???Type aripiprazole 5 mg tablet 7.5 mg PO QHS 05/03/15 01/23/16 Hi story duloxetine 60 mg capsule,delayed 60 mg PO DAILY 05/03/15 01/23/16 H istory release albuterol sulfate 90 mcg/actuation inhalation 11/05/24 11/05/24 His tory aerosol inhaler cholecalciferol (vitamin D3) 125 125 mcg PO QDAY 11/05/24 11/05/24 History mcg (5,000 unit) capsule cholecalciferol (vitamin D3) 50 50 mcg PO QDAY 11/05/24 11/05/24 H istory mcg (2,000 unit) tablet cyclobenzaprine 10 mg tablet 10 mg PO TID PRN 11/05/24 11/05/24 History fluticasone propionate 50 2 spray intranasal QDAY PRN 11/05/24 History mcg/actuation nasal congestion spray,suspension hydroxyzine HCl 25 mg tablet 12.5 - 25 mg PO QDAY PRN 11/05/24 11/05/24 History meloxicam 15 mg tablet 15 mg PO QDAY PRN pain 11/05/24 History venlafaxine 100 mg tablet 100 mg PO TID 11/05/24 11/05/24 Hi story ondansetron 4 mg disintegrating 4 mg PO Q8H #30 tabs 11/06/24 08/0 05/02 Rx tablet Nurse's Note: OV )11/06/24 Pt here to establish care with [facility] with complaints of abdominal pain, diarrhea, gas and bloating. Pt has been taking Pepto Bismol and finds it helpful but feels she has been taking more than she should. Pt has a prior hx of EGD and colonoscopy several years ago. [facility] Social History Smoking Status: Never smoker HPI HPI Chief Complaint: abd pain Details: CAITLYN FERREIRA, is a 54 F who presents to the office today for establishment. Patient with intermittent GI symptoms over the past 6 to 9 months. Patient will have epigastric abdominal pain that radiates into her lower abdomen associated with nausea and diarrhea. She describes abdominal pain as burning. These episodes happen a few times per week. She takes Pepto- Bismol which relieves her symptoms within a few hours.. In between these episodes she denies GI symptoms. She denies heartburn. Cutting coffee out of her diet did seem to help. She does tell of her gallbladder. She is status post appendectomy.. She admits to taking Aleve on a frequent basis and Mobic as needed. Last colonoscopy was over 10 years ago with normal findings. Her grandmom and father had colonic polyps. ROS Const Constitutional: Positive for fatigue and headache(s); No fever(s) or weight change ENT ENT: Positive for headache(s); No difficulty swallowing Gastro GI: Positive for abdominal pain, diarrhea and nausea/dyspepsia; No belching, bloating, change in bowel habits, change in stool character, coffee ground emesis, constipation, cramping, heartburn, difficulty swallowing, feeling full early, excessive flatus, incontinent of stools, Vomiting blood/hematemesis, Blood in stool, loose stools, Black,tarry stools, pain with swallowing, vomiting or other Musc Musculoskeletal: Positive for back pain, muscle cramps, numbness and tingling; No joint pain Skin Skin: No yellowing of the eye or itchy eyes Neuro Neurology: Positive for headache(s), numbness and tingling Psych Psychiatric: Positive for anxiety and Positive for depression Endo Endocrine: Positive for fatigue; No weight change Aller/Imm Allergy/Immunologic: No itchy eyes Luiz/Lymp Hematologic/Lymphatic: Positive for easy bruising; No easy bleeding Exam Const General: cooperative, healthy appearing and comfortable Orientation: alert HENMT Head: normal to inspection Eyes General: appearance normal, both eyes and all related structures Neck Neck: normal visual inspection Chest Chest palpation inspection: normal inspection of the chest Resp Effort Inspection: normal respiratory effort Cardio Rate: regular rate Rhythm: regular rhythm GI Inspection: normal to inspection Auscultation: normal bowel sounds Palpation: soft and nontender Assessment and Plan Assessment and Plan (1) Hx of colonic polyp: Status: Acute (2) Abdominal pain: Status: Acute (3) Loose stools: Status: Acute Plan: Radha is a 50-year-old 4-year-old female patient here today for evaluation of GI symptoms over the past 6 to 9 months. Patient endorsing episodes of epigastric pain radiating to her lower abdomen accompanied with nausea and diarrhea. Patient will take Pepto during these episodes which relieves her pain within an hour. In between t (more content not included)... Normal [facility] MA MAMMOGRAM SCREENING BILAT ERAL W/TOMOon 11-02-2024 MA MAMMOGRAM SCREENING BILATERAL W/GIRISH ORIGINAL FROM: NEREIDA [address] [address] PROCEDURE FOR: CAITLYNDAMIAN FERREIRA [address] [place] [address] Home: PID#: [id number] Exam#: [id number] : 1970 Age: 54 TO: SUSANNAH GRIMES DO [facility] [address] [place] [address] Fax: NO FAX EXAMINATION: SCREENING DIGITAL BILATERAL [...] screening with annual mammograms is recommended. Melanie Yanelyyarelis risk calculations, generated with the history provided, [...] addition to annual mammographic screening per the [employer]. BIRADS: BI-RADS: 1: Negative RECALL: 1 year screening RECALL TYPE: mammo LETTER SENT: Normal BI-RADS 1 and 2 Interpreted by: Rivka Hernandez MD Preliminary Report By: Rivka Hernandez MD Electronically signed By Rivka Hernandez MD Dictated Date: 11/02/2024 11:20:34 PM Prelim Date: 11/02/2024 11:22:10 PM Sign Date: 11/02/2024 11:22:10 PM Ordering Provider: SUSANNAH GRIMES Student Development Specialist: ASHLYN FERRIS RT (R)(M) letter sent: Normal BI-RADS 1 and 2 Mammogram BI-RADS: 1 Negative Normal [facility] BD BONE DENSITY DEXA AXIAL S On license of [facility] 10-30-2024 BD BONE DENSITY DEXA AXIAL SKELETON [...] 10/30/2024 2:39:38 PM Ordering Provider: SUSANNAH Carranza [facility] [facility] .Auto Diffon 12-12-2023 Basophil, Absolute 0.1 10 3/mcL Normal 0.0-0.2 [facility] ([place]) Comment on above: Performed By: #### V IDH, LIPID, ADIFF, CBC, ANEU, CMP, GFR #### [address] [address] Basophils/100 WBC (Bld) 1.2 % Normal 0.0-2.5 [facility] ([place]) Comment on above: Performed By: #### V IDH, LIPID, ADIFF, CBC, ANEU, CMP, GFR #### [place] [id number] [place], [place] [address] Eosinophil, Absolute 0.1 10 3/mcL Normal 0.0-0.4 [facility] ([place]) Comment on above: Performed By: #### V IDH, LIPID, ADIFF, CBC, ANEU, CMP, GFR #### [address] [address] Eosinophils/100 WBC (Bld) 2.0 % Normal 0.0-7.0 [facility] ([place] Comment on above: Performed By: #### V IDH, LIPID, ADIFF, CBC, ANEU, CMP, GFR #### [address] [address] Lymphocyte, Absolute 2.4 10 3/mcL Normal 0.8-3.9 [facility] ([place]) Comment on above: Performed By: #### V IDH, LIPID, ADIFF, CBC, ANEU, CMP, GFR #### [address] [address] Lymphocytes/100 WBC (Bld) 34.4 % Normal 10.0-50.0 [facility] ([place] Comment on above: Performed By: #### V IDH, LIPID, ADIFF, CBC, ANEU, CMP, GFR #### [address] [address] Monocyte, Absolute 0.5 10 3/mcL Normal 0.2-1.0 [facility] ([place]) Comment on above: Performed By: #### V IDH, LIPID, ADIFF, CBC, ANEU, CMP, GFR #### [address] [address] Monocytes/100 WBC (Bld) 7.4 % Normal 1.7-13.0 [facility] ([place] Comment on above: Performed By: #### V IDH, LIPID, ADIFF, CBC, ANEU, CMP, GFR #### [address] [address] Neutrophils/100 WBC (Bld) 55.0 % Normal 37.0-80.0 [facility] ([place] Comment on above: Performed By: #### V IDH, LIPID, ADIFF, CBC, ANEU, CMP, GFR #### [address] [address] .GFRon 09-05-2024 GFR 84 ml/min/1.73sqm [facility] ([place] Comment on above: Result Comment: GFR Population [...] LIPID, ADIFF, CBC, ANEU, CMP, GFR #### [address] [address] GFR Non- 69 ml/min/1.73sqm Normal [facility] ([place]) Comment on above: Result Comment: GFR Population [...] LIPID, ADIFF, CBC, ANEU, CMP, GFR #### [address] [address] .NEUABSon 12-12-2023 Neutrophil, Absolute 3.8 10 3/mcL Normal 2.9-6.2 [facility] ([place]) Comment on above: Performed By: #### V IDH, LIPID, ADIFF, CBC, ANEU, CMP, GFR #### [address] [address] A1Con 12-12-2023 Glucose [Mass/Vol] 111 mg/dL Normal [facility] Comment on above: Result Comment: Ale mated Average Glucose calculated by equation ((28.7xA1C)-46.7) Estimated average glucose (eAG) is a calculated value from Hemoglobin A1C and is patient registration representative of the average blood glucose level in the last 2-3 month period. Normal range: less than 114 mg/dL Performed By: #### B 12 #### [place] [address] #### A1C #### [place] [id number] HbA1c (Bld) [Mass fraction] 5.5 % Normal 4.3-6.4 [facility] Comment on above: Performed By: #### B 12 #### [place] [address] #### A1C #### [place] [id number] B12on 12-12-2023 Cobalamin (Vitamin B12) [Mass/Vol] 495 pg/mL Normal 211-911 [facility] Comment on above: Performed By: #### B 12 #### [place] [address] #### A1C #### [address] [address] CBCon 12-12-2023 Erythrocyte distribution width (RBC) [Ratio] 13.1 % Normal 11.5-14.5 [facility] ([place]) Comment on above: Performed By: #### V IDH, LIPID, ADIFF, CBC, ANEU, CMP, GFR #### [address] [address] Hematocrit (Bld) [Volume fraction] 43.2 % Normal 37.0-47.0 [facility] ([place] Comment on above: Performed By: #### V IDH, LIPID, ADIFF, CBC, ANEU, CMP, GFR #### [address] [address] Hgb 14.5 G/dL Normal 12.0-16.0 [facility] ([place]) Comment on above: Performed By: #### V IDH, LIPID, ADIFF, CBC, ANEU, CMP, GFR #### [address] [address] MCH (RBC) [Entitic mass] 31.4 pg High 27.0-31.2 [facility] ([place] Comment on above: Performed By: #### V IDH, LIPID, ADIFF, CBC, ANEU, CMP, GFR #### [address] [address] MCHC 33.5 G/dL Normal 33.0-37.0 [facility] ([place]) Comment on above: Performed By: #### V IDH, LIPID, ADIFF, CBC, ANEU, CMP, GFR #### [address] [address] MCV (RBC) [Entitic vol] 93.8 fL Normal 80.0-94.0 [facility] ([place]) Comment on above: Performed By: #### V IDH, LIPID, ADIFF, CBC, ANEU, CMP, GFR #### [address] [address] Platelet 256 10 3/mcL Normal 130-400 [facility] ([place] Comment on above: Performed By: #### V IDH, LIPID, ADIFF, CBC, ANEU, CMP, GFR #### [address] [address] Platelet mean volume (Bld) [Entitic vol] 8.2 fL Normal 7.4-10.4 [facility] ([place]) Comment on above: Performed By: #### V IDH, LIPID, ADIFF, CBC, ANEU, CMP, GFR #### [address] [address] RBC 4.61 10 6/mcL Normal 4.20-5.40 [facility] ([place]) Comment on above: Performed By: #### V IDH, LIPID, ADIFF, CBC, ANEU, CMP, GFR #### [address] [address] WBC 6.8 10 3/mcL Normal 4.6-10.8 [facility] ([place]) Comment on above: Performed By: #### V IDH, LIPID, ADIFF, CBC, ANEU, CMP, GFR #### [address] [address] CMPon 12-12-2023 Albumin Level 4.1 G/dL Normal 3.5-5.0 [facility] ([place]) Comment on above: Performed By: #### V IDH, LIPID, ADIFF, CBC, ANEU, CMP, GFR #### [address] [address] Albumin/Globulin [Mass ratio] 1.2 {ratio} Normal 1.1-2.5 [facility] ([place]) Comment on above: Performed By: #### V IDH, LIPID, ADIFF, CBC, ANEU, CMP, GFR #### [address] [address] ALP [Catalytic activity/Vol] 184 U/L High 40-135 [facility] ([place] Comment on above: Performed By: #### V IDH, LIPID, ADIFF, CBC, ANEU, CMP, GFR #### [address] [address] ALT [Catalytic activity/Vol] 68 U/L High 14-59 [facility] ([place]) Comment on above: Performed By: #### V IDH, LIPID, ADIFF, CBC, ANEU, CMP, GFR #### [address] [address] AST [Catalytic activity/Vol] 37 U/L Normal 10-40 [facility] ([place]) Comment on above: Performed By: #### V IDH, LIPID, ADIFF, CBC, ANEU, CMP, GFR #### [address] [address] Bili Total 0.5 mg/dL Normal 0.2-1.0 [facility] ([place]) Comment on above: Result Comment: Use of this assay is not recommended for patients undergoing treatment with eltrombopag due to the potential for falsely elevated results. Performed By: #### V IDH, LIPID, ADIFF, CBC, ANEU, CMP, GFR #### [address] [address] BUN/Creatinine Ratio 15 ratio Normal 7-27 [facility] ([place]) Comment on above: Performed By: #### V IDH, LIPID, ADIFF, CBC, ANEU, CMP, GFR #### [address] [address] Calcium [Mass/Vol] 9.4 mg/dL Normal 8.4-10.2 [facility] ([place]) Comment on above: Performed By: #### V IDH, LIPID, ADIFF, CBC, ANEU, CMP, GFR #### [address] [address] Chloride [Moles/Vol] 102 mmol/L Normal 98-107 [facility]) Comment on above: Performed By: #### V IDH, LIPID, ADIFF, CBC, ANEU, CMP, GFR #### [address] [address] CO2 [Moles/Vol] 32 mmol/L High 22-29 [facility] ([place]) Comment on above: Performed By: #### V IDH, LIPID, ADIFF, CBC, ANEU, CMP, GFR #### [address] [address] Creatinine [Mass/Vol] 0.86 mg/dL Normal 0.55-1.02 [facility] ([place]) Comment on above: Result Comment: Test ing performed on Siemens Dimension EXL analyzer using a modified kinetic Angely technique. Performed By: #### V IDH, LIPID, ADIFF, CBC, ANEU, CMP, GFR #### [address] [address] Electrolyte Balance 4.0 mEq/L Normal 4.0-15.0 [facility] ([place]) Comment on above: Performed By: #### V IDH, LIPID, ADIFF, CBC, ANEU, CMP, GFR #### [address] [address] Globulin 3.4 G/dL Normal [facility] ([place]) Comment on above: Performed By: #### V IDH, LIPID, ADIFF, CBC, ANEU, CMP, GFR #### [address] [address] Glucose [Mass/Vol] 93 mg/dL Normal 70-105 [facility] ([place]) Comment on above: Performed By: #### V IDH, LIPID, ADIFF, CBC, ANEU, CMP, GFR #### [address] [address] Potassium [Moles/Vol] 4.7 mmol/L Normal 3.5-5.1 [facility] ([place]) Comment on above: Performed By: #### V IDH, LIPID, ADIFF, CBC, ANEU, CMP, GFR #### [address] [address] Sodium [Moles/Vol] 138 mmol/L Normal 136-145 [facility] ([place]) Comment on above: Performed By: #### V IDH, LIPID, ADIFF, CBC, ANEU, CMP, GFR #### [address] [address] Total Protein 7.5 G/dL Normal 6.4-8.2 [facility]) Comment on above: Performed By: #### V IDH, LIPID, ADIFF, CBC, ANEU, CMP, GFR #### [address] [address] Urea nitrogen [Mass/Vol] 13 mg/dL Normal 7-18 [facility] ([place]) Comment on above: Performed By: #### V IDH, LIPID, ADIFF, CBC, ANEU, CMP, GFR #### [address] [address] LABORATORYOrdered By: SYSTEM SYSTEM on 12-12-2023 25-hydroxyvitamin [...] calculated value from Hemoglobin A1C and is patient registration representative of the average blood glucose level [...] 12-12-2023 Cholesterol [Mass/Vol] 259 mg/dL High 0-200 [facility] ([place]) Comment on above: Result Comment: Chol esterol Reference Interval: Less than 200 Desirable 200-239 Borderline high risk 240 and above High risk Performed By: #### V IDH, LIPID, ADIFF, CBC, ANEU, CMP, GFR #### [address] [address] Cholesterol in HDL [Mass/Vol] 76 mg/dL High 40-60 [facility] ([place]) Comment on above: Performed By: #### V IDH, LIPID, ADIFF, CBC, ANEU, CMP, GFR #### [address] [address] Cholesterol in LDL [Mass/Vol] 151 mg/dL High 0-130 [facility] ([place]) Comment on above: Performed By: #### V IDH, LIPID, ADIFF, CBC, ANEU, CMP, GFR #### [address] [address] Triglyceride [Mass/Vol] 161 mg/dL High 0-150 [facility] ([place]) Comment on above: Result Comment: Trig lyceride Reference Interval: Less than 150 Normal 150-199 Borderline high risk 200-499 High risk 500 or higher Very high risk Performed By: #### V IDH, LIPID, ADIFF, CBC, ANEU, CMP, GFR #### [address] [place], [place] [address] VIDHon 12-12-2023 Vit. D 25-Hydroxy 27.6 ng/mL [facility] ([place]) Comment on above: Result Comment: Inte rpretive Values Based on Total 25(OH) Vitamin D: Deficient <20 ng/mL Insufficient 20 - <30 ng/mL Sufficient 30-100 ng/mL Performed By: #### V IDH, LIPID, ADIFF, CBC, ANEU, CMP, GFR #### [address] [place], [place] [address] XR SPINE LUMBAR W/OBLIQUES 4 VIEWSon 11-06-2023 [...] Date: 11/06/2023 4:56:25 PM Ordering Provider: SUSANNAH GRIMES Normal [facility] ([place]) LABORATORYOrdered By: Adrian Ponce on 09-13-2021 HIV [...] developed and its performance characteristics determined by [facility]'s [facility] [place] ([facility]). It has not been cleared or approved by the FDA. RT[facility] is regulated under CLIA as qualified to perform high-complexity testing. This test is used for clinical purposes. It should not be regarded as investigational or for research. SOURCE: URINE Performed By: [facility] [employer] [address] [place] [id number] Piano Case Maker: Clyde Ruiz III, M.D. CLIA#: [id number] Reference Range: Negative for Trichomonas vaginalis by amplification Laboratory - Specimen inform ationOrdered By: Gold Colon on 09-08-2021 Specimen source Nom (Unsp spec) Urine (09/08/21 9:53 AM) Invalid Interpretation Code AH Auto Viro/Sero SS CNPNon 09-07-2020 [facility] CAITLYN FERREIRA ([id number]) 1970 F Date Time Provider Department 09/07/20 [facility] During your visit today, we recorded the following information about you: Bhavya Love MA 09/07/2020 2:59 PM Signed Received signed form from pt to release copy of medical records to [facility] for continuity of care. Routed [...] Date Reviewed: 08/04/2020 Reviewed by: Ryne Reddy APRN.CIRCUS RIDER - Fully Assessed Reason for Visit: Release [...] by JAEL DALTON MA on 09/07/20 Normal [facility] Encounters Encounter Date Encounter Type Care Provider Facility Start: 12-25-2024 ambulatory Anam Paniagua Facility :[facility] [place] [facility] Start: 11-21-2024 ambulatory Mary Jacksoni ty:[facility] [place] [facility] Start: 11-06-2024 End: 11-06-2024 ambulatory Mary Bush Facility:[facility] [place] [facility] Start: 10-30-2024 End: 10-30-2024 ambulatory SUSANNAH ALMANZARKO [facility] Start: 10-30-2024 End: 10-30-2024 Patient encounter procedure SUSANNAH JENELLEKO DO [facility] Start: 12-12-2023 End: 12-12-2023 ambulatory SUSANNAH ALMANZARKO Facility[facility] Start: 12-12-2023 End: 12-12-2023 Patient encounter procedure SUSANNAH HALKO DO [facility] Start: 11-11-2023 ambulatory SUSANNAH GRIMES DO Facili ty:[facility] Start: 11-06-2023 End: 11-06-2023 ambulatory SUSANNAH ALMANZARKO DO Facility:[facility] Start: 11-06-2023 End: 11-06-2023 Patient encounter procedure SUSANNAH HALKO DO [facility] Start: 01-10-2023 End: 01-10-2023 ambulatory CHRISTIANO SANCHEZ Facility:[facility] Start: 10-19-2022 End: 10-19-[address] CHRISTIANO SANCHEZ DO [facility] Start: 09-21-2021 End: 09-21-[address]RISTIANO SANCHEZ DO [facility] Start: 09-13-2021 End: 09-13-[address] CHRISTIANO SANCHEZ DO [facility] Start: 09-08-2021 End: 09-12-[address]RISTIANO SANCHEZ DO [facility] Start: 09-08-2021 End: 09-08-[address]RISTIANO SANCHEZ DO [facility] Start: 03-17-2021 End: 03-17-2021 Patient encounter procedure SUSANNAH GRIMES DO [facility] Start: 07-07-2020 Phys/qhp telephone evaluation 21-30 min Rosario Michel MD Work Phone: [address] [facility] Comment on above: Acute maxillary sinu sitis, recurrence not specified (Primary Dx) Start: 04-14-2020 Phys/qhp telephone evaluation 11-20 min Yuni Coker MD [address] [facility] Comment on above: Acute sinusitis, rec urrence not specified, unspecified location (Primary Dx) Procedures Date Procedure Procedure Detail Performing Clinician Start: 09-07-2001 Colonoscopy SUSANNAH GONZALEZ DO Amputation of toe SUSANNAH GONZALEZ DO Comment on above: rt. foot all toes- 72 Ankle region structu re (body structure) SUSANNAH GRIMES DO Comment on above: rt-stabilization - 85 Appendectomy SUSANNAH GRIMES D O Comment on above: 1989 Cervix uteri structu re (body structure) SUSANNAH GRIMES DO Comment on above: [id number] Deliveries by george an (finding) SUSANNAH GRIMES [...] + acellular pertussis vaccine (product) Tdap Booster [facility] Start: 1985 [facility] Start: 03-27-[facility] COVID-19 Vaccine (#1) COVID-19 Vacci ne (#1) [facility] Start: 1970 Screening for malign ant neoplasm of colon [facility] Immunizations Immunization Date Immunization Notes Care Provider Fa cility 03-18-2024 influenza, injectabl e, quadrivalent, contains preservative; Translations: [Fluarix PF Prefilled Syringe ] SUSANNAH GRIMES DO [facility] 08-26-2020 SARS-CoV-2 mRNA (tozinameran) vaccine SUSANNAH GRIMES DO [facility] 08-05-2020 SARS-CoV-2 mRNA (tozinameran) vaccine SUSANNAH GRIMES DO [facility] 04-06-2020 influenza virus vaccine, unspecified formulation SUSANNAH GRIMES DO [facility] 05-12-2019 influenza virus vaccine, unspecified formulation SUSANNAH GRIMES DO [facility] Payers Date Payer Category Payer Self-pay [id number] 2024 Private Health Insurance [id number] 2022 Unknown [id number] 2020 Unknown [employer] - HMO/PPO/POS SUPERMED PPO/CLASSIC/PLUS [id number] 2020-[address] [place] [address] PPO [id number] 1970 Unknown [id number] 1970 Unknown [id number] 1970 Unknown [id number] 1970 Unknown [id number] 1970 Unknown [id number] Unknown [id number] Unknown [id number] Unknown [id number] Unknown [id number] Social History Date Type Detail Facility Start: 08-29-2020 End: 10-12-2021 Never smoked tobacco (finding) [facility] Sex Assigned At Female [facility] Tobacco smoking stat [facility] Tobacco [facility] consumption [facility] Start: 1970 Sex Assigned At Not on file [facility] Sexual Orientation [facility] Start: 01-22-2019 Sex Female (finding) [facility] Clinical Notes 08-04-2020 to 10-30-2024 Note Date & Type Note Facility 10-30-2024 Note Exam Date Time Procedure Performing Provider Status 10/30/24 2:05 PM BD Bone Density DEXA Axial Skeleton RIVKA RENO DO; Gray (Verified) [id number] ORIGINAL EXAMINATION: BONE DENSITOMETRY 10/30/2024 2:07 pm [...] Sign Date: 10/30/2024 2:39:38 PM Ordering Provider: [facility]07-31-2024 Note ORIGINAL EXAMINATION: AP lateral obliques 4 [...] Date: 11/06/2023 4:56:25 PM [facility]ing [facility] Note HNO ID: [id number] Author: Ryne Reddy APRN.SUMIT Service: ? Author Type: Nurse Practitioner Type: Progress Notes Filed: 08/04/2020 8:03 AM Note Text: Telephone Visit. Called patient at 6:55 am for 7:00 am appt. No answer. Left message to return call to go forward with visit. Ryne Reddy APRN.[facility] note Future Appointments Appointment Date:04/14/2021 01:30:00 PM Scheduled Provider:CHRISTIANO SANCHEZ DO [facility] Appointment Type:PC Wellness Annual Appointment Date:05/17/2021 02:30:00 PM Scheduled Provider:SUSANNAH GRIMES DO Location[facility] Appointment Type:PC OV [facility] Evaluation + Plan note Future Appointments Appointment Date:10/12/2021 09:30:00 AM Scheduled Provider:CHRISTIANO SANCHEZ DO Location[facility] Appointment Type:PC OV Follow Up Future Scheduled Tests Laboratory* Rapid Plasma Reagin Test 09/08/21 * Thyroid Stimulating Hormone 09/08/21 * A1C Hemoglobin 09/08/21 * Complete Blood Count 09/08/21 * Hepatitis C Antibody IgG 09/08/21 * HIV 1/2 Ab 09/08/21 * Complete Metabolic Panel 09/08/21 Radiology* XR Foot Minimum 3 Views Left 09/08/21 * XR Chest 2 Views (PA & Lateral) 04/14/21 [facility] Evaluation + Plan note Future Appointments Appointment Date:10/12/2021 09:30:00 AM Scheduled Provider:CHRISTIANO SANCHEZ DO Location:[facility] Appointment Type: OV Follow Up Diagnostic Tests Pending * Hepatitis C Antibody IgG 09/13/21 * Rapid Plasma Reagin Test 09/13/21 Future Scheduled Tests Radiology* XR Foot Minimum 3 Views Left 09/08/21 * XR Chest 2 Views (PA & Lateral) 04/14/21 [facility] evaluation + Plan note Future Appointments Appointment Date:10/12/2021 09:30:00 AM Scheduled Provider:CHRISTIANO SANCHEZ DO Location:[facility] Appointment Type:PC OV Follow Up Future Scheduled Tests Radiology* XR Foot Minimum 3 Views Left 09/08/21 * XR Chest 2 Views (PA & Lateral) 04/14/21 [facility] Evaluation + Plan note Future Appointments Appointment Date:10/30/2022 02:30:00 PM Scheduled Provider:CHRISTIANO SANCHEZ DO Location:[facility] Appointment Type:PC OV Follow Up Appointment Date:11/01/2022 07:00:00 AM Scheduled Provider: Location:[facility] Appointment Type:SL C-PAP (Continuous Positive Airway Pre [facility] Evaluation + Plan note Future Appointments Appointment Date:12/12/2023 10:00:00 AM Scheduled Provider:SUSANNAH GRIMES DO Location:[facility] Appointment Type:PC OV Future Scheduled Tests Laboratory* Vitamin B12 Level 11/06/23 * A1C Hemoglobin 11/06/23 * Complete Blood Count 11/06/23 * Lipid Profile 11/06/23 * Vitamin D Level 11/06/23 * Complete Metabolic Panel 11/06/23 Radiology* MA Mammo Screening Bilateral w/ Girish 11/06/23 [facility] Evaluation + Plan note Future Appointments Appointment Date:12/18/2023 02:00:00 PM Scheduled Provider:SUSANNAH GRIMES DO Location:[facility] Appointment Type:PC OV Future Scheduled Tests Radiology* MA Mammo Screening Bilateral w/ Girish 11/06/23 [facility] evaluation + Plan note Future Appointments Appointment Date:11/23/2024 03:00:00 PM Scheduled Provider:IVY OCONNOR MD Location:[facility] Appointment Type:[facility] [employer] Appointment Date:01/20/2025 04:00:00 PM Scheduled Provider:SUSANNAH GRIMES DO Location:[facility] Appointment Type: OV Follow Up Future Scheduled Tests Laboratory* Vitamin B12 Level 10/12/24 * A1C Hemoglobin 10/12/24 * Complete Blood Count 10/12/24 * Lipid Profile 10/12/24 * Vitamin D Level 10/12/24 * Complete Metabolic Panel 10/12/24 Radiology* MA Mammo Screening Bilateral w/ Girish 11/06/23 [facility] Evaluation note* Diagnosis Acute maxillary sinusitis, recurrence not specified- [facility] Acute sinusitis, recurrence not specified, unspecified location- [facility] Narrative No data available for this section [facility] Hospital Discharge instructions No data available for this section [facility] Progress note No data available for this section [facility] Summary Purpose Family History No Family History Records Found No data available for this section No data available for this section No Family History Records Found No data available for this section No Family History Records FoundNo Family History Records Found Advance Directives No Advanced Directives Records FoundNo Advanced Directives Records FoundNo Advanced Directives Records FoundNo Advanced Directives Records Found Additional Source Comments INFORMATION SOURCE (unrecogn ized section and content) DATE CREATED AUTHOR 06/01/2021 [facility] DATE CREATED AUTHOR AUTHOR'S ORGANIZ ATION 12/14/2023 [facility] ([place]) DATE CREATED AUTHOR AUTHOR'S ORGANIZ ATION 11/05/2024 [facility] DATE CREATED AUTHOR AUTHOR'S ORGANIZ ATION 11/17/2024 [facility] Care Team (unrecognized sect ion and content) Personnel Name: SUSANNAH GRIMES DO Address: [address] [place] [id number] Personnel Name: SUSANNAH GRIMES DO Address: [address] Personnel Name: SUSANNAH GRIMES DO Address: [address] [place] [address] Personnel Name: SUSANNAH GRIMES DO Address: [address] [place] [address] Care Team Personnel Name: SUSANNAH GRIMES DO Position: P4 Physician - Primary Care Member Role: Primary Care Physician Address: Address: [address] [place] [address] Care Team Related Persons Name: JASON NICK Name: GABRIELLA NICK Care Team Personnel Name: SUSANNAH GRIMES DO Position: P4 Physician - Primary Care Member Role: Primary Care Physician Address: Address: [address] [place] [address] Care Team Related Persons Name: JASON NICK Name: GABRIELLA NICK Care Team Personnel Name: SUSANNAH GRIMES DO Position: P4 Physician - Primary Care Member Role: Primary Care Physician Address: Address: [address] [place] [address] Care Team Related Persons Name: JASON NICK Name: GABRIELLA NICK Care Team Personnel Name: SUSANNAH GRIMES DO Position: P4 Physician - Primary Care Member Role: Primary Care Physician Address: [address] [place] [address] Telecom: Care Team Related Persons Name: JASON [...] BE BASED ON THE PRIMARY CLINICAL RECORDS. [facility]. provides no warranty or guarantee of the accuracy or completeness of information in this document.
--- NOTE | 2024-11-21 07:59 | US_ITS ---
PROCEDURE: GALLBLADDER 11/21/2024 REASON FOR EXAM: ELEVATED LFTS COMPARISON: None FINDINGS: The liver measures 13 cm. Homogeneous parenchyma. No definite focal lesions. Portal vein is patent with hepatopetal flow. Gallbladder length measures 7 cm. Negative Valdez's sign. No obvious stones. No pericholecystic fluid collection. Gallbladder wall measures 2 mm. CBD measures 5 mm. Pancreas is normal. No obvious lesions. Right kidney measures 9.8 x 4.6 x 3.9 cm. Cortex measures 1.3 cm. No hydronephrosis. No stones. No mass. US/Gallbladder IMPRESSION: No obvious abnormalities. [facility]
== END | disposition home or self-care (01) ==
LOC: US 07:55
PROVIDERS: PCP Student in an Organized Health Care Education/Training Program; Referring Provider Student in an Organized Health Care Education/Training Program; Visit Provider Student in an Organized Health Care Education/Training Program
DX: R79.89 Other specified abnormal findings of blood chemistry (principal)
CPT/HCPCS: 76705

== ENCOUNTER 2024-12-25 06:42 | Day surgery (SDC) | payer BC, SELFPAY ==
--- NOTE | 2024-12-23 13:23 | PAT.ANE_ITS ---
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 When Was Last Pacemaker Check QUESTION #4 FULL TEXT: You/Your Family Experience fever (hyperthermia) with Anesthesia Last Oral Intake Last Oral intake: Last Oral Intake NPO since Meds taken in AM with sips of water? Meds patient instructed to take am of surgery PONV PONV - steamship agent: PONV - steamship agent Female Yes 12/23/24 10:01 HX of Motion Sickness No 12/23/24 10:01 HX of N/V After Surgery No 12/23/24 10:01 Non-Smoker Yes 12/23/24 10:01 Duration of Surgery greater No 12/23/24 10:01 than 60 minutes Number of Risk Factors 2 12/23/24 10:01 PONV Score Moderate Risk 12/23/24 10:01 Height & Weight Height & Weight: Anesthesia: Height & Weight Height 5 ft 5 in 01/23/16 09:43 Respiratory Assessment Respiratory Assessment - steamship agent: Respiratory Tract Infection Hx - steamship agent Hx Respiratory Tract Infection No 12/23/24 10:01 STOP Sleep Apnea STOP Sleep Apnea - steamship agent: STOP Sleep Apnea - steamship agent Hx Hypertension No 12/23/24 10:01 Hx Sleep Apnea No 12/23/24 10:01 CPAP BIPAP Do you snore loudly (louder No 12/23/24 10:01 than talking or can be heard Do you often feel tired/ No 12/23/24 10:01 fatigued/ sleepy during daytime? Has anyone observed you stop No 12/23/24 10:01 breathing during sleep? STOP Results Negative 12/23/24 10:01 QUESTION #5 FULL TEXT : Do you snore loudly (louder than talking or can be heard through closed doors)? 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 Specify any problems Hx of Preganancy in last 3 No 12/23/24 10:01 Months Nurse Filling Out Transfusion VCHRISTIN 12/23/24 10:01 & Questions: Date: 12/23/24 12/23/24 10:01 Time: 10:02 12/23/24 10:01 Patient unable to answer at this time (ie. confused, unrespo /Reproduction History /Reproductive History - steamship agent: /Reproductive Hx- steamship agent Hx Now No 12/23/24 10:01 Gestational Age (in weeks): EDC: Hx Hx Para Hx Section SAB No 12/23/24 10:01 [facility] Medical History (Updated 12/23/24 @ 10:01 by Britany Bhandari) Wears glasses Post-menopausal Depression Anxiety Alcohol use History of renal disease Migraine headache Injury of head and neck History of IBS Gastric reflux Non-smoker Sleep apnea Asthma Shortness of breath on exertion Home Medications ?Medication ?Instructions ?Recorded ?Last Taken ?Type albuterol sulfate 90 mcg/actuation 1 puff inhalation Q 6H PRN 11/05/24 Unknown History aerosol inhaler shortness of breath or wheez ing cyclobenzaprine 10 mg tablet 10 mg PO TID PRN muscle p ain 11/05/24 Unknown History fluticasone propionate 50 2 spray intranasal QDAY PRN 11/05/24 Unknown History mcg/actuation nasal congestion spray,suspension hydroxyzine HCl 25 mg tablet 12.5 - 25 mg PO QDAY PRN anxiety 11/05/24 Unknown History meloxicam 15 mg tablet 15 mg PO QDAY PRN pain 11/05 Unknown History venlafaxine 100 mg tablet 100 mg PO BID 11/05/24 Unkno wn History ondansetron 4 mg disintegrating 4 mg PO Q8H #30 tabs 0 11/06/24 Unknown Rx tablet calcium 600 mg (as 1 tab PO BID 12/23/24 Unknow n History carbonate)-vitamin D3 10 mcg (400 unit) tablet Allergy/AdvReac Type Severity Reaction Status Date / Time Penicillins (PCN) Allergy Intermediate Rash Verified 12/23/24 09:50 Surgical History (Updated 12/23/24 @ 10:01 by Britany Bhandari) Hx of dilation and curettage Hx of appendectomy Hx of toe surgery History of ankle surgery History of tonsillectomy and adenoidectomy Hx of section Social History Smoking Status: Never smoker Audit: Pertinent Findings Pertinent Findings EKG Perinent findings: EKG 09/29/2015. Sinus bradycardia. Recommendation Anesthesia Recommendation Anesthesia recommendation: OPTIMIZED for anesthesia
[2024-12-25] VITALS (9 sets, daily range): BP systolic 84–133; BP diastolic 62–81; PULSE 58–88; RESP 14–16; TEMP 36.3–36.5; O2SAT 96–100; BMI 28.3
--- OUTSIDE RECORDS SUMMARY | 2024-12-25 06:44 | XMS RPT_ITS | CCD ---
Author Organization [facility] Care Team Providers Care Vat Tender Name Role Phone SUSANNAH GRIMES DO Primary Care Physician [phone] Unavailable Primary Care Provider CHRISTIANO Cunningham Attending Unavailable SYDNEY LANDA, SUSANNAH Primary Care Unavailable SYDNEY LANDA, SUSANNAH Attending Unavailable SYDNEY LANDA, SUSANNAH Primary Care Unavailable HALYOVANI LANDA, SUSANNAH Primary Care Unavailable HALYOVANI LANDA, SUSANNAH Attending Unavailable HALYOVANI LANDA, SUSANNAH Attending Unavailable SYDNEY LANDA, SUSANNAH Primary Care Unavailable SYDNEY LANDA, SUSANNAH Primary Care Unavailable SYDNEY LANDA, SUSANNAH Attending Unavailable Mary Bush Attending Unavailable Mary Bush Referring Unavailable Susannah Grimes Primary Care Unavailable Mary Bush Attending Unavailable Mary Bush Referring Unavailable Susannah Grimes Primary Care Unavailable Susannah Grimes Referring Unavailable Ra Sivahsaan Attending Unavailable Susannah Grimes Primary Care Unavailable Susannah Grimes Referring Unavailable Mary Bush Attending Unavailable Susannah Grimes Primary Care Unavailable Allergies Allergy Classification Reported Allergen(s) Allergy Type Date of Onset Reaction(s) Facility (9 sources) Amoxicillin; Translations: [amoxicillin] Drug Allergy Diarrhea (finding), Eruption of skin (disorder) [facility] (9 sources) Benzodiazepines ; Translations: [benzodiazepine s] Propensity to adverse reactions to drug hypersomnolence [facility] (9 sources) buPROPion; Translations: [bupropion] Drug Allergy Suicidal (finding) [facility] (9 sources) OLANZapine; Translations: [olanzapine] Drug Allergy extreme fatigue [facility] (9 sources) Penicillin; Translations: [penicillin] Drug Allergy Diarrhea (finding), Eruption of skin (disorder) [facility] (9 sources) zaleplon; Translations: [zaleplon] Drug Allergy Hallucinations (finding) [facility] (9 sources) zolpidem; Translations: [zolpidem] Drug Allergy became violent [facility] (1 source) Penicillins Drug allergy (disorder) 12-24-19 [facility] Repository Medications Current Medications Medication Drug Class(es) [...] spasm, # 30 tab(s), 2 Refill(s), Pharmacy: [facility], 163, cm, 03/18/24 14:35:00 EST, Height, kg, 03/18/24 14:35:00 EST, Dosing Weight Start Date: 03/18/24 Status: Ordered Quantity: 30.0 Unit: tab(s) Repeat number: 3 Start: 11-06-2023 cyclobenzaprin e 10 mg oral tablet Dose : 10 mg = 1 tab(s), Oral, TID, PRN as needed for spasm, # 30 tab(s), 2 Refill(s), Pharmacy: [facility], 163, cm, 11/06/23 8:08:00 EDT, Height, [...] nostril, # 1 EA, 5 Refill(s), Pharmacy: [facility], 164, cm, 10/12/24 16:05:00 EDT, Height, kg, 10/12/24 16:05:00 EDT, Dosing Weight Start Date: 10/12/24 Stop Date: 04/10/25 Status: Ordered Quantity: 1.0 Unit: EA Repeat number: 6 Start: 11-06-2023 End: 01-27-2025 take 1 dose nasal route once daily as needed for congestion fluticasone 50 mcg/inh NASAL spray Dose = 2 spray(s), Nostril, each, qDay, PRN Nasal congestion, in each nostril, # 1 EA, 5 Refill(s), Pharmacy: [facility], 163, cm, 11/06/23 8:08:00 EDT, Height, kg, 11/06/23 8:08:00 EDT, Dosing Weight Start Date: 11/06/23 Stop Date: 05/04/24 Status: Ordered Start: 07-23-2022 End: 01-19-2023 take 1 dose nasal route once daily as needed for congestion fluticasone 50 mcg/inh NASAL spray Dose = 2 spray(s), Nostril, each, qDay, PRN PRN Nasal congestion, in each nostril, # 1 EA, 5 Refill(s), Pharmacy: [facility], 162, cm, 12/22/21 14:35:00 EDT, Height, [...] TID, # 90 cap(s), 1 Refill(s), Pharmacy: [facility], Sciatica, 163, cm, 11/06/23 8:08:00 EDT, Height, 81.1, kg, 11/06/23 8:08:00 EDT, Dosing Weight Start Date: 11/06/23 Stop Date: 01/05/24 Status: Ordered hydrOXYzine hydrochloride 25 mg oral tablet (9 sources) Antihistamine Start: 10-12-2024 End: 01-10-2025 take 0.5-1 tablets by mouth once daily as needed hydrOXYzine hydrochloride 25 mg oral tablet 0.5-1 tab, Oral, qDay, PRN prn, # 30 EA, 2 Refill(s), Pharmacy: [facility], 164, cm, 10/12/24 16:05:00 EDT, Height, kg, 10/12/24 16:05:00 EDT, Dosing Weight Start Date: 10/12/24 Stop Date: 01/10/25 Status: Ordered Quantity: 30.0 Unit: EA Repeat number: 3 Start: 11-06-2023 End: 02-04-2024 take 0.5-1 tablets by mouth once daily as needed hydrOXYzine hydrochloride 25 mg oral tablet 0.5-1 tab, Oral, qDay, PRN prn, # 30 EA, 2 Refill(s), Pharmacy: [facility], 163, cm, 11/06/23 8:08:00 EDT, Height, kg, 11/06/23 8:08:00 EDT, Dosing Weight Start Date: 11/06/23 Stop Date: 02/04/24 Status: Ordered Start: 09-13-2020 End: 10-13-2020 take 0.5-1 tablets by mouth once daily as needed hydrOXYzine hydrochloride 25 mg oral tablet 0.5-1 tab, Oral, qDay, PRN prn, # 30 EA, 0 Refill(s), Pharmacy: [facility], 165, cm, 09/13/20 8:03:00 EDT, Height, [...] medication., # 30 tab(s), 0 Refill(s), Pharmacy: [facility], 164, cm, 10/12/24 16:05:00 EDT, Height, [...] medication., # 30 tab(s), 0 Refill(s), Pharmacy: [facility], 163, cm, 11/06/23 8:08:00 EDT, Height, kg, 11/06/23 8:08:00 EDT, Dosing Weight Start Date: 11/06/23 Stop Date: 12/06/23 Status: Ordered venlafaxine 100 mg oral tablet (9 sources) Serotonin and Norepinephrine Reuptake Inhibitor Start: 10-12-2024 End: 04-10-2025 venlafaxine 100 mg oral tablet Dose : 100 mg = 1 tab(s), Oral, TID, with food, # 270 tab(s), 1 Refill(s), Pharmacy: [facility], 164, cm, 10/12/24 16:05:00 EDT, Height, kg, 10/12/24 16:05:00 EDT, Dosing Weight Start Date: 10/12/24 Stop Date: 04/10/25 Status: Ordered Quantity: 270.0 Unit: tab(s) Repeat number: 2 Start: 11-06-2023 End: 01-05-2024 venlafaxine 100 mg oral tabl et Dose : 100 mg = 1 tab(s), Oral, TID, with food, # 90 tab(s), 1 Refill(s), Pharmacy: [facility], 163, cm, 11/06/23 8:08:00 EDT, Height, kg, 11/06/23 8:08:00 EDT, Dosing Weight Start Date: 11/06/23 Stop Date: 01/05/24 Status: Ordered Start: 09-18-2022 End: 03-17-2023 venlafaxine 100 mg oral tabl et Dose : 100 mg = 1 tab(s), Oral, TID, with food, # 270 tab(s), 1 Refill(s), Pharmacy: [facility], 163, cm, 09/18/22 9:58:00 EDT, Height, kg, 09/18/22 9:58:00 EDT, Dosing Weight Start Date: 09/18/22 Stop Date: 03/17/23 Status: Ordered Start: 12-14-2020 End: 06-12-2021 venlafaxine 225 mg oral tabl et, extended release Dose : 225 mg = 1 tab(s), Oral, qDay, # 90 tab(s), 1 Refill(s), Pharmacy: [facility], 166, cm, 12/14/20 13:58:00 EDT, Height, kg, 12/14/20 13:58:00 EDT, Dosing Weight Start Date: 12/14/20 Stop Date: 06/12/21 Status: Ordered Vitamin B12 500 mcg oral tab let (3 sources) Start: 10-12-2024 Vitamin B12 50 0 mcg oral tablet Dose : 500 mcg = 1 tab(s), Oral, qDay, # 90 tab(s), 1 Refill(s), Pharmacy: [facility], 164, cm, 10/12/24 16:05:00 EDT, Height, kg, 10/12/24 16:05:00 EDT, Dosing Weight Start Date: 10/12/24 Status: Ordered Quantity: 90.0 Unit: tab(s) Repeat number: 2 Start: 11-06-2023 Vitamin B12 50 0 mcg oral tablet Dose : 500 mcg = 1 tab(s), Oral, qDay, # 90 tab(s), 1 Refill(s), Pharmacy: [facility], 163, cm, 11/06/23 8:08:00 EDT, Height, kg, 11/06/23 8:08:00 EDT, Dosing Weight Start Date: 11/06/23 Status: Ordered Vitamin D3 125 mcg (5000 int l units) oral capsule (1 source) Start: 10-12-2024 Vitamin D3 125 mcg (5000 intl units) oral capsule Dose : 125 mcg = 1 cap(s), Oral, qDay, # 100 cap(s), 1 Refill(s), Pharmacy: [facility], 164, cm, 10/12/24 16:05:00 EDT, Height, [...] food, # 90 tab(s), 1 Refill(s), Pharmacy: [facility], 163, cm, 11/06/23 8:08:00 EDT, Height, kg, 11/06/23 8:08:00 EDT, Dosing Weight Start Date: 11/06/23 Stop Date: 05/04/24 Status: Ordered Start: 10-01-2022 End: 12-30-2022 Vitamin D3 50 mcg (2000 intl units) oral tablet Dose : 2,000 unit(s) = 1 tab(s), Oral, qDayM, with food, # 90 tab(s), 0 Refill(s), Pharmacy: [facility], 163, cm, 09/18/22 9:58:00 EDT, Height Start Date: 10/01/22 Stop Date: 12/30/22 Status: Ordered Completed/Discontinued Medications Medication Drug Class(es) Dates Sig (Normalized) Sig (Original) [id number] 200 actuat albuterol 0.09 mg/actuat metered dose inhaler (8 sources) beta2-Adrenergic Agonist Start: 11-06-2023 End: 12-18-2023 ProAir HFA MDI (90 mcg/inh) inhalation aerosol 2 puff(s), Inhalation, q6hr, PRN as needed for wheezing, 1-2 puffs, # 18 gram(s), 2 Refill(s), Pharmacy: [facility], 163, cm, 11/06/23 8:08:00 EDT, Height, kg, 11/06/23 8:08:00 EDT, Dosing Weight Start Date: 11/06/23 Stop Date: 9/11/24 Status: Ordered Quantity: 18.0 Unit: g Repeat number: 3 Start: 04-14-2021 End: 04-28-2021 ProAir HFA MDI (90 mcg/inh) inhalation aerosol 2 puff(s), Inhalation, q6hr, PRN as needed for wheezing, 1-2 puffs, # 18 gram(s), 0 Refill(s), Pharmacy: [facility], 162, cm, 04/14/21 11:22:00 EST, Height, kg, 04/14/21 11:22:00 EST, Dosing Weight Start Date: 04/14/21 Stop Date: 04/28/21 Status: Ordered Problems Problem Classification Problem Date Documented Da te Episodic/Chronic Abdominal pain (1 source) Unspecified abdominal pain; Translations: [Unspecified abdominal pain] Onset: 11-27-2024 Episodic Anxiety disorders (20 sources) Generalized anxiety [...] partial amputation of right foot 11-06-2023 Unclassified (1 source) Personal history of colon polyps, unspecified; Translations: [Personal history of colon polyps, unspecified] Onset: 11-06-2024 Viral infection (5 sources) Respiratory syncytial virus infection 04-21-2021 Episodic Results Test Name Value Interpretation Reference Range Facility /Seferino 12-23-2024 /YARA [facility] Medical Records Department [address] [place] [address] PAT - Anesthesia 12/23/24 1323 MR#: [id number] Acct: [id number] Name: CAITLYN FERREIRA Rep #: [id number] : 1970 54 From: Emiliano Lopes MD PCP: Dr. Susannah Grimes, DO Status:PRE [facility] Y Race: C Location: EN Pre-Assessment Diagnosis/Proposed Procedure Planned Operative Procedure(s): COLONOSCOPY/EGD Anesthesia History Anesthesia History - rehab therapy manager: Anesthesia History - rehab therapy manager Hx Hospitalization No 12/23/24 10:01 Any Problems With Anesthesia Yes: HARD TIME WAKING POST- 12/23/24 10:01 OP Cholinesterase deficiency No 12/23/24 10:01 You/Your Family Experience No 12/23/24 10:01 fever (hyperthermia) with Relationship Recent Exposure to Contagious Disease Does patient have nerve No 12/23/24 10:01 stimulator Patient instructed to have device shut off --Does patient have Pacemaker or ICD? When Was Last Pacemaker Check QUESTION #4 FULL TEXT: You/Your Family Experience fever (hyperthermia) with Anesthesia Last Oral Intake Last Oral intake: Last Oral Intake NPO since Meds taken in AM with sips of water? Meds patient instructed to take am of surgery PONV PONV - rehab therapy manager: PONV - rehab therapy manager Female Yes 12/23/24 10:01 HX of Motion Sickness No 12/23/24 10:01 HX of N/V After Surgery No 12/23/24 10:01 Non-Smoker Yes 12/23/24 10:01 Duration of Surgery greater No 12/23/24 10:01 than 60 minutes Number of Risk Factors 2 12/23/24 10:01 PONV Score Moderate Risk 12/23/24 10:01 Height Weight Height Weight: Anesthesia: Height Weight Height 5 ft 5 in 01/23/16 09:43 Respiratory Assessment Respiratory Assessment - rehab therapy manager: Respiratory Tract Infection Hx - rehab therapy manager Hx Respiratory Tract Infection No 12/23/24 10:01 STOP Sleep Apnea STOP Sleep Apnea - rehab therapy manager: STOP Sleep Apnea - rehab therapy manager Hx Hypertension No 12/23/24 10:01 Hx Sleep Apnea No 12/23/24 10:01 CPAP BIPAP Do you snore loudly (louder No 12/23/24 10:01 than talking or can be heard Do you often feel tired/ No 12/23/24 10:01 fatigued/ sleepy during daytime? Has anyone observed you stop No 12/23/24 10:01 breathing during sleep? STOP Results Negative 12/23/24 10:01 QUESTION #5 FULL TEXT : Do you snore loudly (louder than talking or can be heard through closed doors)? 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 Specify any problems Hx of Preganancy in last 3 No 12/23/24 10:01 Months Nurse Filling Out Transfusion VCHRISTIN 12/23/24 10:01 Questions: Date: 12/23/24 12/23/24 10:01 Time: 10:02 12/23/24 10:01 Patient unable to answer at this time (ie. confused, unrespo /Reproduction History /Reproductive History - rehab therapy manager: /Reproductive Hx- rehab therapy manager Hx Now No 12/23/24 10:01 Gestational Age (in weeks): EDC: Hx Hx Para Hx Section SAB No 12/23/24 10:01 PFSH Medical History (Updated 12/23/24 @ 10:01 by Britany Bhandari) Wears glasses Post-menopausal Depression Anxiety Alcohol use History of renal disease Migraine headache Injury of head and neck History of IBS Gastric reflux Non-smoker Sleep apnea Asthma Shortness of breath on exertion Home Medications ???Medication ???Instructions ???Recorded ???Last Taken ???Type albuterol sulfate 90 mcg/actuation 1 puff inhalation Q6H PRN Unknown History aerosol inhaler shortness of breath or wheezing cyclobenzaprine 10 mg tablet 10 mg PO TID PRN muscle pain 11/05 Unknown History fluticasone propionate 50 2 spray intranasal QDAY PRN Unknown History mcg/actuation nasal congestion spray,suspension hydroxyzine HCl 25 mg tablet 12.5 - 25 mg PO QDAY PRN anxiety 0 11/05/24 Unknown History meloxicam 15 mg tablet 15 mg PO QDAY PRN pain 11/05/24 Un known History venlafaxine 100 mg tablet 100 mg PO BI (more content not included)... Normal [facility] Gallbladderon 11-21-2024 Gallbladder [facility] Imaging Services [address] [place] [address] Gallbladder MR#: [id number] Acct: [id number] Name: CAITLYN FERREIRA Rep #: [id number] : 1970 F 54 From: Mariluz nova MD PCP: Dr. Susannah Grimes, Status: REG CLI Study: Gallbladder Date of Exam: 11/21/24 Exam# [id number] Ordering Dr: Mary Bush PROCEDURE: GALLBLADDER 11/21/2024 REASON FOR EXAM: ELEVATED LFTS COMPARISON: None FINDINGS: The liver measures 13 cm. Homogeneous parenchyma. No definite focal lesions. Portal vein is patent with hepatopetal flow. Gallbladder length measures 7 cm. Negative Valdez's sign. No obvious stones. No pericholecystic fluid collection. Gallbladder wall measures 2 mm. CBD measures 5 mm. Pancreas is normal. No obvious lesions. Right kidney measures 9.8 x 4.6 x 3.9 cm. Cortex measures 1.3 cm. No hydronephrosis. No stones. No mass. US/Gallbladder IMPRESSION: No obvious abnormalities. [facility] CC: Dr. Susannah Grimes DO; LAMBERT Valdez Director Hedis: Signed Normal [facility] CBC W/Diff, Automatedon 08-0 -2024 Absolute Lymph 2.39 X10 3/uL Normal 0.83-4.51 [facility] Comment on above: Performed By: #### L 500.4050, L100.0100 #### [facility] [address] [place], [address] Absolute Neut 4.2 X10 3/uL Normal 2.0-7.7 [facility] Comment on above: Performed By: #### L 500.4050, L100.0100 #### [facility] [address] [place], [address] Basophils/100 WBC (Bld) 1.1 % High 0-1 [facility] Comment on above: Performed By: #### L 500.4050, L100.0100 #### [facility] [address] [place], [address] Eosinophils/100 WBC (Bld) 1.5 % Normal 0-5 [facility] Comment on above: Performed By: #### L 500.4050, L100.0100 #### [facility] [address] [place], [address] Erythrocyte distribution width (RBC) [Ratio] 12.5 % Normal 11.6-14.6 [facility] Comment on above: Performed By: #### L 500.4050, L100.0100 #### [facility] [address] [place], [address] Hematocrit (Bld) [Volume fraction] 45.8 % Normal 37-47 [facility] Comment on above: Performed By: #### L 500.4050, L100.0100 #### [facility] [address] [place], [address] Hemoglobin (Bld) [Mass/Vol] 15.0 g/dL Normal 12.0-15.0 [facility] Comment on above: Performed By: #### L 500.4050, L100.0100 #### [facility] [address] [place], [address] IG% 0.300 Normal 0.0-0.9 [facility] Comment on above: Result Comment: IG% - Immature Granulocytes (promyelocytes, myelocytes and metamyelocytes) > 1% indicates that a LEFT SHIFT is Present. Performed By: #### L 500.4050, L100.0100 #### [facility] [address] [place], [address] Lymphocytes/100 WBC (Bld) 32.6 % Normal 19-41 [facility] Comment on above: Performed By: #### L 500.4050, L100.0100 #### [facility] [address] [place], [address] MCH (RBC) [Entitic mass] 31.0 pg Normal 27.0-32.0 [facility] Comment on above: Performed By: #### L 500.4050, L100.0100 #### [facility] [address] [place], [address] MCHC (RBC) [Mass/Vol] 32.8 g/dL Normal 32-[address] [facility] Comment on above: Performed By: #### L 500.4050, L100.0100 #### [facility] [address] [place], [address] MCV (RBC) [Entitic vol] 94.6 fL Normal 81-99 [facility] Comment on above: Performed By: #### L 500.4050, L100.0100 #### [facility] [address] [place], [address] Monocytes/100 WBC (Bld) 7.9 % Normal 0-10 [facility] Comment on above: Performed By: #### L 500.4050, L100.0100 #### [facility] [address] [place], [address] Neutrophils/100 WBC (Bld) 56.6 % Normal 47-70 [facility] Comment on above: Performed By: #### L 500.4050, L100.0100 #### [facility] [address] [place], [address] Nucleated RBC (Bld) [#/Vol] 0 10*3/uL Normal 0-5 [facility] Comment on above: Performed By: #### L 500.4050, L100.0100 #### [facility] [address] [place], [address] Platelet mean volume (Bld) [Entitic vol] 10.4 fL Normal 6.2-12.0 [facility] Comment on above: Performed By: #### L 500.4050, L100.0100 #### [facility] [address] [place], [address] Platelets (Bld) [#/Vol] 258 10*3/uL Normal 150-450 [facility] Comment on above: Performed By: #### L 500.4050, L100.0100 #### [facility] [address] [place], [address] RBC (Bld) [#/Vol] 4.84 10*6/uL Normal 4.2-5.4 [facility] Comment on above: Performed By: #### L 500.4050, L100.0100 #### [facility] [address] [place], [address] RDW SD 43.4 fl Normal 35.1-43.9 [facility] Comment on above: Performed By: #### L 500.4050, L100.0100 #### [facility] [address] [place], [address] WBC (Bld) [#/Vol] 7.3 10*3/uL Normal 4.4-11.0 [facility] Comment on above: Performed By: #### L 500.4050, L100.0100 #### [facility] [address] [place], [address] Comprehensive Metabolic Prof ilon 11-06-2024 Albumin [Mass/Vol] 4.5 g/dL Normal 3.5-5.0 [facility] Comment on above: Performed By: #### L 500.4050, L100.0100 #### [facility] [address] [place], [address] Albumin/Globulin [Mass ratio] 1.4 {ratio} Normal 0.9-2.4 [facility] Comment on above: Performed By: #### L 500.4050, L100.0100 #### [facility] [address] [place], [address] ALK PHOS 143 U/L High 35-104 [facility] Comment on above: Performed By: #### L 500.4050, L100.0100 #### [facility] [address] [place], [address] ALT [Catalytic activity/Vol] 58 U/L High <=34 [facility] Comment on above: Performed By: #### L 500.4050, L100.0100 #### [facility] [address] [place], [address] AST [Catalytic activity/Vol] 49 U/L High <=31 [facility] Comment on above: Performed By: #### L 500.4050, L100.0100 #### [facility] [address] [place], [address] Bilirubin [Mass/Vol] 0.26 mg/dL Normal 0.00-1.30 [facility] Comment on above: Performed By: #### L 500.4050, L100.0100 #### [facility] [address] [place], [address] BUN/CRE 17.6 RATIO Normal 10-20 [facility] Comment on above: Performed By: #### L 500.4050, L100.0100 #### [facility] [address] [place], [address] Calcium [Mass/Vol] 9.8 mg/dL Normal 7.6-11.0 [facility] Comment on above: Performed By: #### L 500.4050, L100.0100 #### [facility] [address] [place], [address] Chloride [Moles/Vol] 103 mmol/L Normal 98-108 [facility] Comment on above: Performed By: #### L 500.4050, L100.0100 #### [facility] [address] [place], [address] CO2 [Moles/Vol] 25.8 mmol/L Normal 21.0-32.0 [facility] Comment on above: Performed By: #### L 500.4050, L100.0100 #### [facility] [address] [place], [address] Creatinine [Mass/Vol] 0.89 mg/dL Normal 0.70-1.[address] [facility] Comment on above: Performed By: #### L 500.4050, L100.0100 #### [facility] [address] [place], [address] GAP 13 Normal 5-15 [facility] Comment on above: Performed By: #### L 500.4050, L100.0100 #### [facility] [address] [place], [address] GFR/1.73 sq M.predicted among non-blacks MDRD (S/P/Bld) [Vol rate/Area] 78 mL/min/{1.73_m2} Normal >60 [facility] Comment on above: Result Comment: mL/m in/1.73m2 CKD-EPI Creatinine Equation (2020) Performed By: #### L 500.4050, L100.0100 #### [facility] [address] [place], [address] Globulin (S) [Mass/Vol] 3.3 g/dL Normal 2.2-4.2 [facility] Comment on above: Performed By: #### L 500.4050, L100.0100 #### [facility] [address] [place], [address] Glucose [Mass/Vol] 92 mg/dL Normal 70-99 [facility] Comment on above: Performed By: #### L 500.4050, L100.0100 #### [facility] [address] [place], [address] Potassium [Moles/Vol] 4.2 mmol/L Normal 3.3-5.[address] [facility] Comment on above: Performed By: #### L 500.4050, L100.0100 #### [facility] [address] [place], [address] Sodium [Moles/Vol] 142 mmol/L Normal 133-145 [facility] Comment on above: Performed By: #### L 500.4050, L100.0100 #### [facility] [address] [place], [address] T PROT 7.7 g/dL Normal 5.9-8.4 [facility] Comment on above: Performed By: #### L 500.4050, L100.0100 #### [facility] [address] [place], [address] Urea nitrogen [Mass/Vol] 16 mg/dL Normal 4-19 [facility] Comment on above: Performed By: #### L 500.4050, L100.0100 #### [facility] [address] [place], [address] Gastroenterology Visit Repor ton 11-06-2024 Gastroenterology Visit Report [facility] Gastroenterology [address] [place] [address] OFFICE VISIT Date of Service: 11/06/24 MR#: [id number] Acct: [id number] Name: CAITLYN FERREIRA Rep #: [id number] : 1970 Provider: LAMBERT Valdez Age/Sex: 54/F Location: [facility] Status: Signed Intake Intake Visit Reasons: Unspecified [...] disintegrating 4 mg PO Q8H #30 tabs 11/06/2405/02 Rx tablet Nurse's Note: OV )11/06/24 Pt here to establish care with [facility] with complaints of abdominal pain, diarrhea, gas and bloating. Pt has been taking Pepto Bismol and finds it helpful but feels she has been taking more than she should. Pt has a prior hx of EGD and colonoscopy several years ago. PFSH Social History Smoking Status: Never smoker HPI [...] between t (more content not included)... Normal [facility] MA MAMMOGRAM SCREENING BILAT ERAL W/TOMOon 11-02-2024 MA MAMMOGRAM SCREENING BILATERAL W/GIRISH ORIGINAL FROM: KAREN [address] [address] PROCEDURE FOR: CAITLYN FERREIRA [address] [place] [address] Home: PID#: [id number] Exam#: [id number] : 1970 Age: 54 TO: SUSANNAH GRAF [place] [address] Fax: NO FAX EXAMINATION: SCREENING DIGITAL BILATERAL [...] addition to annual mammographic screening per the [employer]. BIRADS: BI-RADS: 1: Negative RECALL: 1 year screening RECALL TYPE: mammo LETTER SENT: Normal BI-RADS 1 and 2 Interpreted by: Rivka Hernadnez MD Preliminary Report By: Rivka Hernandez MD Electronically signed By Rivka Hernandez MD Dictated Date: 11/02/2024 11:20:34 PM Prelim Date: 11/02/2024 11:22:10 PM Sign Date: 11/02/2024 11:22:10 PM Ordering Provider: SUSANNAH GRIMES Film Developing Machine Operator: ASHLYN FERRIS RT (R)(M) letter sent: Normal BI-RADS 1 and 2 Mammogram BI-RADS: 1 Negative Normal [facility] BD BONE DENSITY DEXA AXIAL SKELETON [...] 10/30/2024 2:39:38 PM Ordering Provider: SUSANNAH Carranza [facility] .Auto Diffon 12-12-2023 Basophil, Absolute 0.1 10 3/mcL Normal 0.0-0.2 [facility] ([place]) Comment on above: Performed By: #### V IDH, LIPID, ADIFF, CBC, ANEU, CMP, GFR #### [address] [address] Basophils/100 WBC (Bld) 1.2 % Normal 0.0-2.5 [facility] ([place]) Comment on above: Performed By: #### V IDH, LIPID, ADIFF, CBC, ANEU, CMP, GFR #### [address] [address] Eosinophil, Absolute 0.1 10 3/mcL Normal 0.0-0.4 [facility] ([place]) Comment on above: Performed By: #### V IDH, LIPID, ADIFF, CBC, ANEU, CMP, GFR #### [address] [address] Eosinophils/100 WBC (Bld) 2.0 % Normal 0.0-7.0 [facility] ([place]) Comment on above: Performed By: #### V IDH, LIPID, ADIFF, CBC, ANEU, CMP, GFR #### [address] [address] Lymphocyte, Absolute 2.4 10 3/mcL Normal 0.8-3.9 [facility] ([place]) Comment on above: Performed By: #### V IDH, LIPID, ADIFF, CBC, ANEU, CMP, GFR #### [address] [address] Lymphocytes/100 WBC (Bld) 34.4 % Normal 10.0-50.0 [facility] ([place]) Comment on above: Performed By: #### V IDH, LIPID, ADIFF, CBC, ANEU, CMP, GFR #### [address] [address] Monocyte, Absolute 0.5 10 3/mcL Normal 0.2-1.0 [facility] ([place]) Comment on above: Performed By: #### V IDH, LIPID, ADIFF, CBC, ANEU, CMP, GFR #### [address] [address] Monocytes/100 WBC (Bld) 7.4 % Normal 1.7-13.0 [facility] ([place]) Comment on above: Performed By: #### V IDH, LIPID, ADIFF, CBC, ANEU, CMP, GFR #### [address] [address] Neutrophils/100 WBC (Bld) 55.0 % Normal 37.0-80.0 [facility] ([place]) Comment on above: Performed By: #### V IDH, LIPID, ADIFF, CBC, ANEU, CMP, GFR #### [address] [address] .GFRon 12-12-2023 GFR 84 ml/min/1.73sqm Normal [facility] ([place]) Comment on above: Result Comment: GFR Population [...] LIPID, ADIFF, CBC, ANEU, CMP, GFR #### [address] [address] GFR Non- 69 ml/min/1.73sqm Normal [facility] ([place]) Comment on above: Result Comment: GFR Population [...] LIPID, ADIFF, CBC, ANEU, CMP, GFR #### [address] [address] .NEUABSon 12-12-2023 Neutrophil, Absolute 3.8 10 3/mcL Normal 2.9-6.2 [facility] ([place]) Comment on above: Performed By: #### V IDH, LIPID, ADIFF, CBC, ANEU, CMP, GFR #### [address] [address] A1Con 12-12-2023 Glucose [Mass/Vol] 111 mg/dL Normal [facility] Comment on above: Result Comment: Ale mated Average Glucose calculated by equation ((28.7xA1C)-46.7) Estimated average glucose (eAG) is a calculated value from Hemoglobin A1C and is hr representative of the average blood glucose level in the last 2-3 month period. Normal range: less than 114 mg/dL Performed By: #### B 12 #### [place] [address] #### A1C #### [address] [address] HbA1c (Bld) [Mass fraction] 5.5 % Normal 4.3-6.4 [facility] Comment on above: Performed By: #### B 12 #### [address] [address] #### A1C #### [address] [address] B12on 12-12-2023 Cobalamin (Vitamin B12) [Mass/Vol] 495 pg/mL Normal 211-911 [facility] Comment on above: Performed By: #### B 12 #### [place] [address] #### A1C #### [address] [address] CBCon 12-12-2023 Erythrocyte distribution width (RBC) [Ratio] 13.1 % Normal 11.5-14.5 [facility] ([place]) Comment on above: Performed By: #### V IDH, LIPID, ADIFF, CBC, ANEU, CMP, GFR #### [address] [address] Hematocrit (Bld) [Volume fraction] 43.2 % Normal 37.0-47.0 [facility] ([place]) Comment on above: Performed By: #### V IDH, LIPID, ADIFF, CBC, ANEU, CMP, GFR #### [address] [address] Hgb 14.5 G/dL Normal 12.0-16.0 [facility] ([place]) Comment on above: Performed By: #### V IDH, LIPID, ADIFF, CBC, ANEU, CMP, GFR #### [address] [address] MCH (RBC) [Entitic mass] 31.4 pg High 27.0-31.2 [facility] ([place] Comment on above: Performed By: #### V IDH, LIPID, ADIFF, CBC, ANEU, CMP, GFR #### [address] [address] MCHC 33.5 G/dL Normal 33.0-37.0 [facility] ([place]) Comment on above: Performed By: #### V IDH, LIPID, ADIFF, CBC, ANEU, CMP, GFR #### [address] [address] MCV (RBC) [Entitic vol] 93.8 fL Normal 80.0-94.0 [facility] ([place] Comment on above: Performed By: #### V IDH, LIPID, ADIFF, CBC, ANEU, CMP, GFR #### [address] [address] Platelet 256 10 3/mcL Normal 130-400 [facility] ([place]) Comment on above: Performed By: #### V IDH, LIPID, ADIFF, CBC, ANEU, CMP, GFR #### [address] [address] Platelet mean volume (Bld) [Entitic vol] 8.2 fL Normal 7.4-10.4 [facility] ([place] Comment on above: Performed By: #### V IDH, LIPID, ADIFF, CBC, ANEU, CMP, GFR #### [address] [address] RBC 4.61 10 6/mcL Normal 4.20-5.40 [facility] ([place]) Comment on above: Performed By: #### V IDH, LIPID, ADIFF, CBC, ANEU, CMP, GFR #### [address] [address] WBC 6.8 10 3/mcL Normal 4.6-10.8 [facility] ([place]) Comment on above: Performed By: #### V IDH, LIPID, ADIFF, CBC, ANEU, CMP, GFR #### [address] [address] CMPon 12-12-2023 Albumin Level 4.1 G/dL Normal 3.5-5.0 [facility] ([place]) Comment on above: Performed By: #### V IDH, LIPID, ADIFF, CBC, ANEU, CMP, GFR #### [address] [address] Albumin/Globulin [Mass ratio] 1.2 {ratio} Normal 1.1-2.5 [facility] ([place]) Comment on above: Performed By: #### V IDH, LIPID, ADIFF, CBC, ANEU, CMP, GFR #### [address] [address] ALP [Catalytic activity/Vol] 184 U/L High 40-135 [facility] ([place]) Comment on above: Performed By: #### V IDH, LIPID, ADIFF, CBC, ANEU, CMP, GFR #### [address] [address] ALT [Catalytic activity/Vol] 68 U/L High 14-59 [facility] ([place]) Comment on above: Performed By: #### V IDH, LIPID, ADIFF, CBC, ANEU, CMP, GFR #### [address] [address] AST [Catalytic activity/Vol] 37 U/L Normal 10-40 [facility] ([place]) Comment on above: Performed By: #### V IDH, LIPID, ADIFF, CBC, ANEU, CMP, GFR #### [address] [address] Bili Total 0.5 mg/dL Normal 0.2-1.0 [facility] ([place]) Comment on above: Result Comment: Use of this assay is not recommended for patients undergoing treatment with eltrombopag due to the potential for falsely elevated results. Performed By: #### V IDH, LIPID, ADIFF, CBC, ANEU, CMP, GFR #### [address] [address] BUN/Creatinine Ratio 15 ratio Normal 7-27 [facility] ([place]) Comment on above: Performed By: #### V IDH, LIPID, ADIFF, CBC, ANEU, CMP, GFR #### [address] [address] Calcium [Mass/Vol] 9.4 mg/dL Normal 8.4-10.2 [facility] ([place]) Comment on above: Performed By: #### V IDH, LIPID, ADIFF, CBC, ANEU, CMP, GFR #### [address] [address] Chloride [Moles/Vol] 102 mmol/L Normal 98-107 [facility]) Comment on above: Performed By: #### V IDH, LIPID, ADIFF, CBC, ANEU, CMP, GFR #### [address] [address] CO2 [Moles/Vol] 32 mmol/L High 22-29 [facility] ([place]) Comment on above: Performed By: #### V IDH, LIPID, ADIFF, CBC, ANEU, CMP, GFR #### [address] [address] Creatinine [Mass/Vol] 0.86 mg/dL Normal 0.55-1.02 [facility] ([place]) Comment on above: Result Comment: Test ing performed on Siemens Dimension EXL analyzer using a modified kinetic Angely technique. Performed By: #### V IDH, LIPID, ADIFF, CBC, ANEU, CMP, GFR #### [address] [address] Electrolyte Balance 4.0 mEq/L Normal 4.0-15.0 [facility] ([place]) Comment on above: Performed By: #### V IDH, LIPID, ADIFF, CBC, ANEU, CMP, GFR #### [address] [address] Globulin 3.4 G/dL Normal [facility] ([place]) Comment on above: Performed By: #### V IDH, LIPID, ADIFF, CBC, ANEU, CMP, GFR #### [address] [address] Glucose [Mass/Vol] 93 mg/dL Normal 70-105 [facility] ([place]) Comment on above: Performed By: #### V IDH, LIPID, ADIFF, CBC, ANEU, CMP, GFR #### [address] [address] Potassium [Moles/Vol] 4.7 mmol/L Normal 3.5-5.1 [facility] ([place]) Comment on above: Performed By: #### V IDH, LIPID, ADIFF, CBC, ANEU, CMP, GFR #### [address] [address] Sodium [Moles/Vol] 138 mmol/L Normal 136-145 [facility] ([place]) Comment on above: Performed By: #### V IDH, LIPID, ADIFF, CBC, ANEU, CMP, GFR #### [address] [address] Total Protein 7.5 G/dL Normal 6.4-8.2 [facility] ([place]) Comment on above: Performed By: #### V IDH, LIPID, ADIFF, CBC, ANEU, CMP, GFR #### [address] [address] Urea nitrogen [Mass/Vol] 13 mg/dL Normal 7-18 [facility] ([place]) Comment on above: Performed By: #### V IDH, LIPID, ADIFF, CBC, ANEU, CMP, GFR #### [address] [address] LABORATORYOrdered By: SYSTEM SYSTEM on 12-12-2023 25-hydroxyvitamin [...] calculated value from Hemoglobin A1C and is hr representative of the average blood glucose level [...] 12-12-2023 Cholesterol [Mass/Vol] 259 mg/dL High 0-200 [facility] ([place]) Comment on above: Result Comment: Chol esterol Reference Interval: Less than 200 Desirable 200-239 Borderline high risk 240 and above High risk Performed By: #### V IDH, LIPID, ADIFF, CBC, ANEU, CMP, GFR #### [address] [address] Cholesterol in HDL [Mass/Vol] 76 mg/dL High 40-60 [facility] ([place]) Comment on above: Performed By: #### V IDH, LIPID, ADIFF, CBC, ANEU, CMP, GFR #### [address] [address] Cholesterol in LDL [Mass/Vol] 151 mg/dL High 0-130 [facility] ([place]) Comment on above: Performed By: #### V IDH, LIPID, ADIFF, CBC, ANEU, CMP, GFR #### [address] [address] Triglyceride [Mass/Vol] 161 mg/dL High 0-150 [facility] ([place]) Comment on above: Result Comment: Trig lyceride Reference Interval: Less than 150 Normal 150-199 Borderline high risk 200-499 High risk 500 or higher Very high risk Performed By: #### V IDH, LIPID, ADIFF, CBC, ANEU, CMP, GFR #### [place] [id number] [place], [place] [address] VIDHon 12-12-2023 Vit. D 25-Hydroxy 27.6 ng/mL Normal [facility] ([place]) Comment on above: Result Comment: Inte rpretive Values Based on Total 25(OH) Vitamin D: Deficient <20 ng/mL Insufficient 20 - <30 ng/mL Sufficient 30-100 ng/mL Performed By: #### V IDH, LIPID, ADIFF, CBC, ANEU, CMP, GFR #### [place] [id number] [place], [place] [address] XR SPINE LUMBAR W/OBLIQUES 4 VIEWSon 11-06-2023 [...] 11/06/2023 4:56:25 PM Ordering Provider: SUSANNAH Carranza [facility] ([place]) LABORATORYOrdered By: Adrian Ponce on 09-13-2021 HIV [...] developed and its performance characteristics determined by [facility] Frank [facility]ig[facility] [place] ([facility]). It has not been cleared or approved by the FDA. [facility] is regulated under CLIA as qualified to perform high-complexity testing. This test is used for clinical purposes. It should not be regarded as investigational or for research. SOURCE: URINE Performed By: [facility] [address] [place] [address] Supervisor Shop: Clyde Ruiz III, M.D. IA#: [id number] Reference Range: Negative for Trichomonas vaginalis by amplification Laboratory - Specimen inform ationOrdered By: Gold Colon on 09-08-2021 Specimen source Nom (Unsp spec) Urine (09/08/21 9:53 AM) Invalid Interpretation Code AH Auto Viro/Sero SS CNPNon 09-07-2020 [facility] CAITLYN FERREIRA ([id number]) 1970 F Date Time Provider Department 09/07/20 RUPESH HO [facility] During your visit today, we recorded the following information about you: Bhavya Love MA 09/07/2020 2:59 PM Signed Received signed form from pt to release copy of medical records to [facility] for continuity of care. Routed to [...] Date Reviewed: 08/04/2020 Reviewed by: Ryne Reddy APRN.MANAGEMENT DEVELOPMENT SPECIALIST - Fully Assessed Reason for Visit: Release [...] by JAEL DALTON MA on 09/07/20 Normal [facility] Encounters Encounter Date Encounter Type Care Provider Facility Start: 12-25-2024 ambulatory Susannah Grimes Facility: [facility] Start: 11-21-2024 End: 11-21-2024 ambulatory Mary Rachelle Facility:[facility] Start: 11-06-2024 End: 11-06-2024 ambulatory Susannah Grimes Facility:[facility] Start: 11-06-2024 End: 11-06-2024 ambulatory Mary Bush Facility:[facility] Start: 10-30-2024 End: 10-30-2024 ambulatory SUSANNAH ALMANZARKO DO [facility] Start: 10-30-2024 End: 10-30-2024 Patient encounter procedure SUSANNAH JENELLEKO DO [facility] Start: 12-12-2023 End: 12-12-2023 ambulatory SUSANNAH ALMANZARKO [facility] Start: 12-12-2023 End: 12-12-2023 Patient encounter procedure SUSANNAH HALKO DO [facility] Start: 11-11-2023 ambulatory SUSANNAH GRIMES DO Facili ty:[facility] Start: 11-06-2023 End: 11-06-2023 ambulatory SUSANNAH ALMANZARKO DO Facility[facility] Start: 11-06-2023 End: 11-06-2023 Patient encounter procedure SUSANNAH HALKO DO [facility] Start: 01-10-2023 End: 01-10-2023 chucho SANCHEZ Facility:[facility] Start: 10-19-2022 End: 10-19-[address] CHRISTIANO SANCHEZ DO [facility] Start: 09-21-2021 End: 09-21-[address] CHRISTIANO SANCHEZ DO [facility] Start: 09-13-2021 End: 09-13-[address] CHRISTIANO SANCHEZ DO [facility] Start: 09-08-2021 End: 09-12-[address] CHRISTIANO SANCHEZ DO [facility] Start: 09-08-2021 End: 09-08-[address] CHRISTIANO SANCHEZ DO [facility] Start: 03-17-2021 End: 03-17-2021 Patient encounter procedure SUSANNAH GRIMES DO [facility] Start: 07-07-2020 Phys/qhp telephone evaluation 21-30 min Rosario Michel MD Work Phone: [address] [facility] Comment on above: Acute maxillary sinu sitis, recurrence not specified (Primary Dx) Start: 04-14-2020 Phys/qhp telephone evaluation 11-20 min Yuni Coker MD [address] [facility] Comment on above: Acute [...] structure) SUSANNAH GRIMES DO Comment on above: [id number] Deliveries by george an (finding) SUSANNAH GRIMES [...] [facility] Start: 1985 [facility] Start: 03-27-1971 COVID-19 Vaccine (#1) COVID-19 Vacci ne (#1) [facility] Start: 1970 Screening for malign ant neoplasm of [facility] Immunizations Immunization Date Immunization Notes Care Provider Fa cility 03-18-2024 influenza, injectabl e, quadrivalent, contains preservative; Translations: [Fluarix PF Prefilled Syringe ] SUSANNAH GRIMES DO [facility] 08-26-2020 SARS-CoV-2 mRNA (tozinameran) vaccine SUSANNAH GRIMES DO [facility] 08-05-2020 SARS-CoV-2 mRNA (tozinameran) vaccine SUSANNAH GRIMES DO [facility] 04-06-2020 influenza virus vaccine, unspecified formulation SUSANNAH GRIMES DO [facility] 05-12-2019 influenza virus vaccine, unspecified formulation SUSANNAH GRIMES DO [facility] Payers Date Payer Category Payer Self-pay [id number] 2024 Private Health Insurance [id number] 2022 Unknown [id number] 2020 Unknown [employer] - HMO/PPO/POS SUPERMED PPO/CLASSIC/PLUS [id number] 2020-[address] [place] [address] PPO [id number] 1970 Unknown [id number] 1970 Unknown [id number] 1970 Unknown [id number] 1970 Unknown [id number] 1970 Unknown [id number] Unknown [id number] .462 Unknown [id number] .462 Unknown [id number] .462 Unknown [id number] .462 Social History Date Type Detail Facility Start: 08-29-2020 End: 10-12-2021 Never smoked tobacco (finding) [facility] Sex Assigned At Female [facility] Tobacco smoking stat [facility] Tobacco smoking consumption [facility] Start: 1970 Sex Assigned At Not on file [facility] Sexual Orientation [facility] ospital [facility] Start: 01-22-2019 Sex Female (finding) [facility] Clinical Notes 08-04-2020 to 10-30-2024 Note Date & Type Note Facility 10-30-2024 Note Exam Date Time Procedure Performing Provider Status 10/30/24 2:05 PM BD Bone Density DEXA Axial Skeleton RIVKA RENO DO; Gray (Verified) [id number] ORIGINAL EXAMINATION: BONE DENSITOMETRY 10/30/2024 2:07 pm [...] Sign Date: 10/30/2024 2:39:38 PM Ordering Provider: [facility]07-31-2024 Note ORIGINAL EXAMINATION: AP lateral obliques 4 [...] Date: 11/06/2023 4:56:25 PM Ordering Provider: [facility] Note HNO ID: [id number] Author: Ryne Reddy APRN.SUMIT Service: ? Author Type: Nurse Practitioner Type: Progress Notes Filed: 08/04/2020 8:03 AM Note Text: Telephone Visit. Called patient at 6:55 am for 7:00 am appt. No answer. Left message to return call to go forward with visit. Ryne Reddy APRN.[facility] Future Appointments Appointment Date:04/14/2021 01:30:00 PM Scheduled Provider:CHRISTIANO SANCHEZ DO Location:[facility] Appointment Type:PC Wellness Annual Appointment Date:05/17/2021 02:30:00 PM Scheduled Provider:SUSANNAH GRIMES DO Location:[facility] Appointment Type:PC OV [facility] Evaluation + Plan note Future Appointments Appointment Date:10/12/2021 09:30:00 AM Scheduled Provider:CHRISTIANO SANCHEZ DO Location:[facility] Appointment Type:PC OV Follow Up Future Scheduled Tests Laboratory* Rapid Plasma Reagin Test 09/08/21 * Thyroid Stimulating Hormone 09/08/21 * A1C Hemoglobin 09/08/21 * Complete Blood Count 09/08/21 * Hepatitis C Antibody IgG 09/08/21 * HIV 1/2 Ab 09/08/21 * Complete Metabolic Panel 09/08/21 Radiology* XR Foot Minimum 3 Views Left 09/08/21 * XR Chest 2 Views (PA & Lateral) 04/14/21 [facility] Evaluation + Plan note Future Appointments Appointment Date:10/12/2021 09:30:00 AM Scheduled Provider:CHRISTIANO SANCHEZ DO Location:[facility] Appointment Type: OV Follow Up Diagnostic Tests Pending * Hepatitis C Antibody IgG 09/13/21 * Rapid Plasma Reagin Test 09/13/21 Future Scheduled Tests Radiology* XR Foot Minimum 3 Views Left 09/08/21 * XR Chest 2 Views (PA & Lateral) 04/14/21 [facility] Evaluation + Plan note Future Appointments Appointment Date:10/12/2021 09:30:00 AM Scheduled Provider:CHRISTIANO SANCHEZ DO Location:[facility] Appointment Type:PC OV Follow Up Future Scheduled Tests Radiology* XR Foot Minimum 3 Views Left 09/08/21 * XR Chest 2 Views (PA & Lateral) 04/14/21 [facility] Evaluation + Plan note Future Appointments Appointment Date:10/30/2022 02:30:00 PM Scheduled Provider:CHRISTIANO SANCHEZ DO Location:[facility] Appointment Type:PC OV Follow Up Appointment Date:11/01/2022 07:00:00 AM Scheduled Provider: Location:[facility] Appointment Type:SL C-PAP (Continuous Positive Airway Pre [facility] Evaluation + Plan note Future Appointments Appointment Date:12/12/2023 10:00:00 AM Scheduled Provider:SUSANNAH GRIMES DO Location:[facility] Appointment Type:PC OV Future Scheduled Tests Laboratory* Vitamin B12 Level 11/06/23 * A1C Hemoglobin 11/06/23 * Complete Blood Count 11/06/23 * Lipid Profile 11/06/23 * Vitamin D Level 11/06/23 * Complete Metabolic Panel 11/06/23 Radiology* MA Mammo Screening Bilateral w/ Girish 11/06/23 [facility] Evaluation + Plan note Future Appointments Appointment Date:12/18/2023 02:00:00 PM Scheduled Provider:SUSANNAH GRIMES DO Location:[facility] Appointment Type:PC OV Future Scheduled Tests Radiology* MA Mammo Screening Bilateral w/ Girish 11/06/23 [facility] evaluation + Plan note Future Appointments Appointment Date:11/23/2024 03:00:00 PM Scheduled Provider:IVY OCONNOR MD Location: [facility] Appointment Type:[facility] [employer]PERINTENDENT Appointment Date:01/20/2025 04:00:00 PM Scheduled Provider:SUSANNAH GRIMES DO Location:[facility] Appointment Type: OV Follow Up Future Scheduled Tests Laboratory* Vitamin B12 Level 10/12/24 * A1C Hemoglobin 10/12/24 * Complete Blood Count 10/12/24 * Lipid Profile 10/12/24 * Vitamin D Level 10/12/24 * Complete Metabolic Panel 10/12/24 Radiology* MA Mammo Screening Bilateral w/ Girish 11/06/23 [facility] Evaluation note* Diagnosis Acute maxillary sinusitis, recurrence not specified- [facility] Acute sinusitis, recurrence not specified, unspecified location- [facility] N[facility]ative No data available for this section [facility] Discharge instructions No data available for this section [facility] Progress note No data available for this section [facility] Summary Purpose Family History No Family History [...] section and content) DATE CREATED AUTHOR 06/01/2021 [facility] DATE CREATED AUTHOR AUTHOR'S ORGANIZ ATION 12/14/2023 [facility] ([place] DATE CREATED AUTHOR AUTHOR'S ORGANIZ ATION 11/05/2024 [facility] DATE CREATED AUTHOR AUTHOR'S ORGANIZ ATION 12/24/2024 [facility] Care Team (unrecognized sect ion and content) Personnel Name: SUSANNAH GRIMES DO Address: [address] [place] [address] [facility] [place], [place] [address] Personnel Name: SUSANNAH GRIMES DO Address: [address] Personnel Name: SUSANNAH GRIMES DO Address: [address] [place] [address] Personnel Name: SUSANNAH GRIMES DO Address: [address] [place] [address] Care Team Personnel Name: SUSANNAH GRIMES DO Position: P4 Physician - Primary Care Member Role: Primary Care Physician Address: Address: [address] [place] [address] Care Team Related Persons Name: JASON NICK Name: GABRIELLA NICK Care Team Personnel Name: SUSANNAH GRIMES DO Position: P4 Physician - Primary Care Member Role: Primary Care Physician Address: Address: [address] [place] [address] Care Team Related Persons Name: JASON NICK Name: GABRIELLA NICK Care Team Personnel Name: SUSANNAH GRIMES DO Position: P4 Physician - Primary Care Member Role: Primary Care Physician Address: Address: [address] [place] [address] Care Team Related Persons Name: JASON NICK Name: GABRIELLA NICK Care Team Personnel Name: SUSANNAH GRIMES DO Position: P4 Physician - Primary Care Member Role: Primary Care Physician Address: [address] [place] [address] Telecom: Care Team Related Persons Name: JASON [...] BE BASED ON THE PRIMARY CLINICAL RECORDS. [employer] [facility]. provides no warranty or guarantee of the accuracy or completeness of information in this document.
[2024-12-25] MEDS: Lactated Ringers 1,000 ML 15 ML IV (07:07)
--- NOTE | 2024-12-25 07:30 | PCM.PRE.AN2 ---
ASA Classification* ASA Classification ASA Classification: 2 Assessment & Plan Anesthesia* Anesthesia Assessment Anesthesia Assessment: Discussed sedation and/or anesthesia options, risks, benefits, and alternatives with patient/parents/legal guardian/POA. Questions invited. The patient/parents/legal guardian/POA seems to understand and agrees to proceed with anesthesia plan. Reviewed the physical assessment, medical history, allergy history and patient home medications list prior to surgery/procedure/anesthetic and documented any changes. Performed airway and anesthesia risk assessments. Anesthesia Type Anesthesia Type: MAC Anesthesia Focused Assessment* Temperature: 97.7 F Pulse Rate: 88 Blood Pressure: 116/78 Respiratory Rate: 16 Pulse Ox: 99 Airway Assessment Mouth opens: >3 cm Mallampati Score: II Labs Anesthesia Preop lab: CBC WBC, (4.4-11.0) 7.3 K/mm3 11/06/24, 10:36 RBC, (4.2-5.4) 4.84 M/mm3 11/06/24, 10:36 Hgb, (12.0-15.0) 15.0 g/dL 11/06/24, 10:36 Hct, (37-47) 45.8 % 11/06/24, 10:36 Plt Count, (150-450) 258 K/mm3 11/06/24, 10:36 CHEMISTRY Potassium, (3.3-5.1) 4.2 mmol/L 11/06/24, 10:36 Sodium, (133-145) 142 mmol/L 11/06/24, 10:36 Phosphorus, (2.5-4.9) 3.5 mg/dL 11/23/14, 07:34 BUN, (4-19) 16 mg/dL 11/06/24, 10:36 Creatinine, (0.70-1.20) 0.89 mg/dL 11/06/24, 10:36 Glucose, (70-99) 92 mg/dL 11/06/24, 10:36 TSH, (0.358-3.74) 0.63 uIU/mL 06/17/14, 15:17 COAG Pre-Assessment Diagnosis/Proposed Procedure Planned Operative Procedure(s): COLONOSCOPY/EGD Anesthesia History Anesthesia History - second operator: Anesthesia History - second operator Hx Hospitalization No 12/23/24 10:01 Any Problems With Anesthesia Yes: HARD TIME WAKING POST- 12/23/24 10:01 OP Cholinesterase deficiency No 12/23/24 10:01 You/Your Family Experience No 12/23/24 10:01 fever (hyperthermia) with Relationship Recent Exposure to Contagious No 12/25/24 07:07 Disease Does patient have nerve No 12/23/24 10:01 stimulator Patient instructed to have device shut off --Does patient have Pacemaker No 12/25/24 07:07 or ICD? When Was Last Pacemaker Check QUESTION #4 FULL TEXT: You/Your Family Experience fever (hyperthermia) with Anesthesia Last Oral Intake Last Oral intake: Last Oral Intake NPO since 03:30 12/25/24 07:07 Meds taken in AM with sips of No 12/25/24 07:07 water? Meds patient instructed to take am of surgery PONV PONV - second operator: PONV - second operator Female Yes 12/23/24 10:01 HX of Motion Sickness No 12/23/24 10:01 HX of N/V After Surgery No 12/23/24 10:01 Non-Smoker Yes 12/23/24 10:01 Duration of Surgery greater No 12/23/24 10:01 than 60 minutes Number of Risk Factors 2 12/23/24 10:01 PONV Score Moderate Risk 12/23/24 10:01 Height & Weight Height & Weight: Anesthesia: Height & Weight Height 5 ft 4 in 12/25/24 07:07 Weight: 75 kg 12/25/24 07:07 Body Mass Index (BMI) 28.3 12/25/24 07:07 Respiratory Assessment Respiratory Assessment - second operator: Respiratory Tract Infection Hx - second operator Hx Respiratory Tract Infection No 12/23/24 10:01 STOP Sleep Apnea STOP Sleep Apnea - second operator: STOP Sleep Apnea - second operator Hx Hypertension No 12/23/24 10:01 Hx Sleep Apnea No 12/23/24 10:01 CPAP BIPAP Do you snore loudly (louder No 12/23/24 10:01 than talking or can be heard Do you often feel tired/ No 12/23/24 10:01 fatigued/ sleepy during daytime? Has anyone observed you stop No 12/23/24 10:01 breathing during sleep? STOP Results Negative 12/23/24 10:01 QUESTION #5 FULL TEXT : Do you snore loudly (louder than talking or can be heard through closed doors)? Tobacco Use History Tobacco Use History - second operator: Tobacco Use History - second operator Tobacco Use Smoking Status Never smoker 12/23/24 10:01 Hx Tobacco Use No 12/23/24 10:01 Years Smoking Packs Smoked per Day Smoking Cessation Date was within the last 15 years Hx Smoking Cessation Date Hx Smoking Cessation Counseling Hematologic Medial History Hematologic Hx - second operator: Hematologic Medical Hx - usability strategist Hx of Blood Transfusion No 12/23/24 10:01 Hx of Transfusion in last 3 No 12/23/24 10:01 Months Date of Last Transfusion (if within last 3 months) Ever experience any problems No 12/23/24 10:01 with transfusion(s)? Specify any problems Hx of Preganancy in last 3 No 12/23/24 10:01 Months Nurse Filling Out Transfusion VCHRISTIN 12/23/24 10:01 & Questions: Date: 12/23/24 12/23/24 10:01 Time: 10:02 12/23/24 10:01 Patient unable to answer at this time (ie. confused, unrespo /Reproduction History /Reproductive History - second operator: /Reproductive Hx- second operator Hx Now No 12/23/24 10:01 Gestational Age (in weeks): EDC: Hx Hx Para Hx Section SAB No 12/23/24 10:01 Active Medications Active Medications: Current Medications Generic Name Dose Route Start Last Admin Trade Name Freq PRN Reason Stop Dose Admin Lactated Ringer's 1,000 mls @ 15 mls/hr 12/25/24 06:45 12/25/24 07:07 IV 15 mls/hr .Q48H SOPHIE Administration PFSH Medical History Wears glasses Post-menopausal Depression Anxiety Alcohol use History of renal disease Migraine headache Injury of head and neck History of IBS Gastric reflux Non-smoker Sleep apnea Asthma Shortness of breath on exertion Home Medications ?Medication ?Instructions ?Recorded ?Last Taken ?Type albuterol sulfate 90 mcg/actuation 1 puff inhalation Q6H PRN 11/05/24 Unknown History aerosol inhaler shortness of breath or wheezing cyclobenzaprine 10 mg tablet 10 mg PO TID PRN muscle pain 11/05/24 Unknown History fluticasone propionate 50 2 spray intranasal QDAY PRN 11/05/24 Unknown History mcg/actuation nasal congestion spray,suspension hydroxyzine HCl 25 mg tablet 12.5 - 25 mg PO QDAY PRN anxiety 11/05/24 Unknown History meloxicam 15 mg tablet 15 mg PO QDAY PRN pain 11/05/24 Unknown History venlafaxine 100 mg tablet 100 mg PO BID 11/05/24 Unknown History ondansetron 4 mg disintegrating 4 mg PO Q8H #30 tabs 11/06/24 Unknown Rx tablet calcium 600 mg (as 1 tab PO BID 12/23/24 Unknown History carbonate)-vitamin D3 10 mcg (400 unit) tablet Allergy/AdvReac Type Severity Reaction Status Date / Time Penicillins (PCN) Allergy Intermediate Rash Verified 12/25/24 07:05 Surgical History Hx of dilation and curettage Hx of appendectomy Hx of toe surgery History of ankle surgery History of tonsillectomy and adenoidectomy Hx of section Social History Smoking Status: Never smoker Review of Systems (Anesthesia) ROS Narrative System reviewed and no additional complaints, except as documented.
--- NOTE | 2024-12-25 07:39 | PCM.HP.STD ---
[facility] - General General Date of Admission: 12/25/24 Date of Service: 12/25/24 Chief Complaint: abdominal pain and diarrhea HPI Narrative CAITLYN FERREIRA, is a 54 F who presents with Chief Complaint: abd pain Patient with intermittent GI symptoms over the past 6 to 9 months. Patient will have epigastric abdominal pain that radiates into her lower abdomen associated with nausea and diarrhea. She describes abdominal pain as burning. These episodes happen a few times per week. She takes Pepto-Bismol which relieves her symptoms within a few hours.. In between these episodes she denies GI symptoms. She denies heartburn. Cutting coffee out of her diet did seem to help. She does tell of her gallbladder. She is status post appendectomy.. She admits to taking Aleve on a frequent basis and Mobic as needed. Last colonoscopy was over 10 years ago with normal findings. Her grandmom and father had colonic polyps. CBC W/Diff, Automated Today R10.9 - Unspecified abdominal pain, Z86.0100 - Personal history of colon polyps, unspecified Comprehensive Metabolic Profil Today R10.9 - Unspecified abdominal pain, Z86.0100 - Personal history of colon polyps, unspecified Medications: New ondansetron 4 mg PO Q8H 30 tabs 2RF PFSH Medical History Wears glasses Post-menopausal Depression Anxiety Alcohol use History of renal disease Migraine headache Injury of head and neck History of IBS Gastric reflux Non-smoker Sleep apnea Asthma Shortness of breath on exertion Home Medications ?Medication ?Instructions ?Recorded ?Last Taken ?Type albuterol sulfate 90 mcg/actuation 1 puff inhalation Q6H PRN 11/05/24 Unknown History aerosol inhaler shortness of breath or wheezing cyclobenzaprine 10 mg tablet 10 mg PO TID PRN muscle pain 11/05/24 Unknown History fluticasone propionate 50 2 spray intranasal QDAY PRN 11/05/24 Unknown History mcg/actuation nasal congestion spray,suspension hydroxyzine HCl 25 mg tablet 12.5 - 25 mg PO QDAY PRN anxiety 11/05/24 Unknown History meloxicam 15 mg tablet 15 mg PO QDAY PRN pain 11/05/24 Unknown History venlafaxine 100 mg tablet 100 mg PO BID 11/05/24 Unknown History ondansetron 4 mg disintegrating 4 mg PO Q8H #30 tabs 11/06/24 Unknown Rx tablet calcium 600 mg (as 1 tab PO BID 12/23/24 Unknown History carbonate)-vitamin D3 10 mcg (400 unit) tablet Allergy/AdvReac Type Severity Reaction Status Date / Time Penicillins (PCN) Allergy Intermediate Rash Verified 12/25/24 07:05 Surgical History Hx of dilation and curettage Hx of appendectomy Hx of toe surgery History of ankle surgery History of tonsillectomy and adenoidectomy Hx of section Social History Smoking Status: Never smoker ROS Constitutional Constitutional: Denies fatigue, fever(s), poor appetite, weight gain or weight loss Gastrointestinal Gastrointestinal: Denies belching, bloating, change in bowel habits, change in stool character, chewing difficulty, coffee ground emesis, constipation, cramping, diarrhea, dyspepsia, dysphagia, early satiety, excessive flatus, fecal incontinence, heartburn, hematemesis, hematochezia, hemorrhoids, loose stools, melena, nausea, odynophagia, rectal bleeding, tenesmus, vomiting or weight changes Vital Signs Vital Signs Vital Signs: 12/25/24 07:07 12/25/24 07:07 12/25/24 07:30 Temperature 97.7 F L 97.7 F L Temperature Source Temporal Pulse Rate 88 88 Respiratory Rate 16 16 Respiratory Pattern Normal Blood Pressure 116/78 116/78 Blood Pressure Mean 90 Blood Pressure Source Monitor Blood Pressure Position Semi-Fowlers Blood Pressure Location Right Arm Pulse Ox 99 99 Oxygen Delivery Method Room Air Weight Weight: 165 lb 5.547 oz Body Mass Index (BMI) 28.3 Physical Exam Const alert, oriented x3, no apparent distress and healthy appearing General Appearance: cooperative GI normal to inspection, nondistended, normoactive bowel sounds, soft to palpation, non-tender and non-distended Percussion: normal to percussion Rectal Exam: deferred Assessment & Plan Assessment/Plan (1) Elevated LFTs: (2) Loose stools: (3) Abdominal pain: (4) Hx of colonic polyp: PLAN: Assessment and Plan Assessment and Plan (1) Hx of colonic polyp: Status: Acute (2) Abdominal pain: Status: Acute (3) Loose stools: Status: Acute Plan: Radha is a 50-year-old 4-year-old female patient here today for evaluation of GI symptoms over the past 6 to 9 months. Patient endorsing episodes of epigastric pain radiating to her lower abdomen accompanied with nausea and diarrhea. Patient will take Pepto during these episodes which relieves her pain within an hour. In between these episodes she feels fine and has no GI symptoms. Patient is taking Aleve on a frequent basis and Mobic as needed putting her more at risk for gastric ulcers. She will undergo EGD for assessment of her upper GI tract. I have also recommended colonoscopy as her last screening colonoscopy was over 10 years ago and she has having intermittent diarrhea. She was agreeable to undergo both endoscopies. She declines stool testing at this time. - EGD and colonoscopy - Declined stool testing follow-up after procedures - Orders: Orders CBC W/Diff, Automated Today R10.9 - Unspecified abdominal pain, Z86.0100 - Personal history of colon polyps, unspecified Comprehensive Metabolic Profil Today R10.9 - Unspecified abdominal pain, Z86.0100 - Personal history of colon polyps, unspecified Medications: New ondansetron 4 mg PO Q8H 30 tabs 2RF
--- NOTE | 2024-12-25 07:45 | COLBX_PTH ---
PATIENT: CAITLYN FERREIRA LOC: EN U#:[id number] AGE/SX: 54/F ROOM: RE12/25/[address]: Dr. Anam Paniagua DO : 1970 BED: DIS: 12/25/2024 SPEC #: [id number] RECD: 12/25/24 09:31 STATUS: FERNANDO REDamian #: [id number] GODFREY: 12/25/24 07:[address]: Anam Paniagua DEPT: SURGICAL PATHOLOGY RECD BY: Terrell Dasilva ENTERED: 12/25/24 12:59 SP TYPE: COLON BX OTHR DR: Dr. Krishna Rosario DO Tissues: A - Gastric mucous membrane B - Esophagus, NOS C - Cecum, NOS D - Ileum, NOS E - COLON BIOPSY Procedures: Immunohistochemical Stains Surgery Specimen Level IV HEADER OPERATION: Colonoscopy, EGD and biopsy and polypectomy PRE-OP DIAGNOSIS: Abdominal pain, diarrhea, history of colonic polyp TISSUE SUBMITTED: A- Gastric antrum biopsy, B- Distal esophagus biopsy, C- Cecum polyp, D- Terminal ileum biopsy, E- Random colon biopsy MICROSCOPIC DIAGNOSIS A. Gastric antrum, biopsy: * Antral mucosa with features of reactive gastropathy. * IHC negative for H. pylori organisms. B. Distal esophagus, biopsy: * Squamous mucosa with reactive changes. * Columnar mucosa negative for goblet cell metaplasia. C. Cecum, polyp, biopsy: * Tubular adenoma, multiple fragments. D. Terminal ileum, biopsy: * No specific pathologic change. E. Colon, random, biopsy: * Focal active colitis without crypt architectural distortion - see note. * No granulomas or dysplasia seen. Note: Focal mild acute inflammation is noted without features of chronicity. This is a nonspecific finding which may result from bowel prep artifact, mild infection, medication injury (eg: NSAIDs) and ischemia. Recommend correlation with clinical and endoscopic findings. MICROSCOPIC DESCRIPTION Slides are reviewed. All matched controls reacted appropriately. These tests were developed and their performance characteristics determined by [facility]. They may not have been cleared or approved by the U.S. Food and Drug Administration. The FDA has determined that such clearance or approval is not necessary. The above immunohistochemical markers and/or special?stains have been reviewed by the Pathologist. GROSS DESCRIPTION A. Received in fixative is one container labeled with the patient's name and designated Gastric antrum biopsy. The specimen consists of three irregular fragments of light chin soft tissue that measure 0.3 to 0.6 cm. The specimen is totally submitted in one cassette. B. Received in fixative is one container labeled with the patient's name and designated Distal esophagus biopsy. The specimen consists of two irregular fragments of light chin soft tissue that measure 0.7 and 0.8 cm. The specimen is totally submitted in one cassette. C. Received in fixative is one container labeled with the patient's name and designated Cecum polyp. The specimen consists of a 0.8 x 0.7 x 0.1 cm aggregate of chin tissue fragments and a 0.8 x 0.5 x 0.3 cm chin-red granular polyp. The resection margin of the polyp is inked black and it is serially sectioned. Entirely submitted in 1 cassette.D. Received in fixative is one container labeled with the patient's name and designated Terminal ileum biopsy. The specimen consists of four irregular fragments of light chin soft tissue that measure 0.1 to 0.3 cm. Smallest fragment may not survive processing. The specimen is totally submitted in one cassette. E. Received in fixative is one container labeled with the patient's name and designated Random colon biopsy. The specimen consists of multiple irregular fragments of light chin soft tissue that in aggregate measure 1.3 x 0.7 x 0.1 cm. The specimen is totally submitted in one cassette. ND 12/25/2024 CPT:[id number]
--- NOTE | 2024-12-25 08:27 | PCM.POST.ANE ---
Anesthesia: Postop Eval I Current Vital Signs Temperature: 97.5 F Pulse Rate: 60 Blood Pressure: 133/81 Respiratory Rate: 16 Pulse Ox: 99 Oxygen Delivery Method: Room Air Assessment Airway patent: Yes Spontaneous unlabored respirations: Yes Mental status: Asleep nausea: No Vomiting: No Anesthesia Complication: No Fluid Hydration Crystalloid volume administer (ml): 800 Total IV fluid infused: 800 Progress Note Anesthesia document: Postop Eval 1 completed: Yes
--- NOTE | 2024-12-25 08:33 | OP.PROVAT_ITS ---
12/25/2024 Krishna Rosario Do Re : Upper GI endoscopy procedure for Lynn Gomes Dear Abraham This procedure was performed on Wednesday, December 25, 2024. My impressions and recommendations are as follows: Impressions : - Z-line irregular, 39 cm from the incisors. Biopsied. - Erythematous mucosa in the gastric body. Biopsied. - No gross lesions in the entire examined duodenum. Recommendations : - Discharge patient to home. - Resume previous diet. - Continue present medications. My findings are described in the full procedure note, which is enclosed. If I can be of further assistance, please feel free to contact me at . Sincerely, Anam Paniagua DO 12/25/2024 8:32:37 AM This report has been signed electronically.
--- NOTE | 2024-12-25 08:33 | OP.EGD_ITS ---
Patient Name: Lynn Gomes Procedure Date: 12/25/2024 7:44 AM Date of : 1970 Age: 54 Procedure: Upper GI endoscopy Indications: Epigastric abdominal pain, Functional Dyspepsia, Heartburn Providers: Anam Paniagua DO Referring MD: Krishna Rosario Do Medicines: Monitored Anesthesia Care Patient Profile: This is a 54 year old female. Refer to note in patient chart for documentation of history and physical. Patient has symptoms. Complications: No immediate complications. Procedure: Pre-Anesthesia Assessment: - Prior to the procedure, a History and Physical was performed, and patient medications and allergies were reviewed. The patient is competent. The risks and benefits of the procedure and the sedation options and risks were discussed with the patient. All questions were answered and informed consent was obtained. Patient identification and proposed procedure were verified by the physician in the pre-procedure area. Mental Status Examination: alert and oriented. Airway Examination: normal oropharyngeal airway and neck mobility. Respiratory Examination: clear to auscultation. CV Examination: normal. Prophylactic Antibiotics: The patient does not require prophylactic antibiotics. Prior Anticoagulants: The patient has taken no anticoagulant or antiplatelet agents except for NSAID medication. ASA Grade Assessment: II - A patient with mild systemic disease. After reviewing the risks and benefits, the patient was deemed in satisfactory condition to undergo the procedure. The anesthesia plan was to use monitored anesthesia care (MAC). Immediately prior to administration of medications, the patient was re-assessed for adequacy to receive sedatives. The heart rate, respiratory rate, oxygen saturations, blood pressure, adequacy of pulmonary ventilation, and response to care were monitored throughout the procedure. The physical status of the patient was re-assessed after the procedure. After obtaining informed consent, the endoscope was passed under direct vision. Throughout the procedure, the patient's blood pressure, pulse, and oxygen saturations were monitored continuously. The Colonoscope was introduced through the mouth, and advanced to the third part of the duodenum. Small bowel enteroscopy was deemed necessary. The upper GI endoscopy was accomplished without difficulty. The patient tolerated the procedure well. Scope In: 7:53:12 AM Scope Out: 7:57:54 AM Total Procedure Duration Time 0 hours 4 minutes 42 seconds Findings: The Z-line was irregular and was found 39 cm from the incisors. Biopsies were taken with a cold forceps for histology. Verification of patient identification for the specimen was done. Biopsies were taken with a cold forceps for histology. Verification of patient identification for the specimen was done. Estimated blood loss was minimal. Patchy mildly erythematous mucosa without bleeding was found in the gastric body. Biopsies were taken with a cold forceps for histology. Biopsies were taken with a cold forceps for Helicobacter pylori testing. Verification of patient identification for the specimen was done. Estimated blood loss was minimal. No gross lesions were noted in the entire examined duodenum. Impression: - Z-line irregular, 39 cm from the incisors. Biopsied. - Erythematous mucosa in the gastric body. Biopsied. - No gross lesions in the entire examined duodenum. Recommendation: - Discharge patient to home. - Resume previous diet. - Continue present medications. Procedure Code(s): --- Professional --- 46067, Small intestinal endoscopy, enteroscopy beyond second portion of duodenum, not including ileum; with biopsy, single or multiple CPT copyright 2021 [employer]. All rights reserved. The codes documented in this report are preliminary and upon compression molding machine operator review may be revised to meet current compliance requirements. Anam Paniagua DO 12/25/2024 8:32:37 AM This report has been signed electronically. Number of Addenda: 0 Note Initiated On: 12/25/2024 7:44 AM
--- NOTE | 2024-12-25 08:38 | OP.PROVAT_ITS ---
12/25/2024 Krishna Rosario Do Re : Colonoscopy procedure for Lynn Gomes Dear Abraham This procedure was performed on Wednesday, December 25, 2024. My impressions and recommendations are as follows: Impressions : - One 8 mm polyp in the cecum, removed with a hot snare. Resected and retrieved. Clip was placed. Clip life manager: [employer]. - Congested mucosa in the terminal ileum. Biopsied. Recommendations : - Discharge patient to home. - Repeat colonoscopy in 5 years for surveillance. - Continue present medications. My findings are described in the full procedure note, which is enclosed. If I can be of further assistance, please feel free to contact me at . Sincerely, Anam Paniagua, 12/25/2024 8:37:17 AM This report has been signed electronically.
--- NOTE | 2024-12-25 08:38 | OP.COLON_ITS ---
Patient Name: Lynn Gomes Procedure Date: 12/25/2024 7:58 AM Date of : 1970 Age: 54 Procedure: Colonoscopy Indications: Abdominal pain in the left lower quadrant Providers: Anam Paniagua DO Referring MD: Krishna Rosario Do Medicines: Monitored Anesthesia Care Patient Profile: This is a 54 year old female. Refer to note in patient chart for documentation of history and physical. Patient has symptoms. Last Colonoscopy: date unknown. Unable to locate last colonoscopy report. Complications: No immediate complications. Procedure: Pre-Anesthesia Assessment: - Prior to the procedure, a History and Physical was performed, and patient medications and allergies were reviewed. The patient is competent. The risks and benefits of the procedure and the sedation options and risks were discussed with the patient. All questions were answered and informed consent was obtained. Patient identification and proposed procedure were verified by the physician in the pre-procedure area. Mental Status Examination: alert and oriented. Airway Examination: normal oropharyngeal airway and neck mobility. Respiratory Examination: clear to auscultation. CV Examination: normal. Prophylactic Antibiotics: The patient does not require prophylactic antibiotics. Prior Anticoagulants: The patient has taken no anticoagulant or antiplatelet agents except for NSAID medication. ASA Grade Assessment: II - A patient with mild systemic disease. After reviewing the risks and benefits, the patient was deemed in satisfactory condition to undergo the procedure. The anesthesia plan was to use monitored anesthesia care (MAC). Immediately prior to administration of medications, the patient was re-assessed for adequacy to receive sedatives. The heart rate, respiratory rate, oxygen saturations, blood pressure, adequacy of pulmonary ventilation, and response to care were monitored throughout the procedure. The physical status of the patient was re-assessed after the procedure. After I obtained informed consent, the scope was passed under direct vision. Throughout the procedure, the patient's blood pressure, pulse, and oxygen saturations were monitored continuously. The Colonoscope was introduced through the anus and advanced to the terminal ileum. The colonoscopy was performed without difficulty. The patient tolerated the procedure well. The quality of the bowel preparation was adequate. The terminal ileum, ileocecal valve, appendiceal orifice, and rectum were photographed. Scope In: 7:59:22 AM Scope Withdrawal Time 0 hours 14 minutes 2 seconds Scope Out: 8:16:40 AM Total Procedure Duration Time 0 hours 17 minutes 18 seconds Findings: The perianal and digital rectal examinations were normal. An 8 mm polyp was found in the cecum. The polyp was sessile. The polyp was removed with a hot snare. Resection and retrieval were complete. To close a defect after polypectomy, one hemostatic clip was successfully placed. 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 There was no bleeding at the end of the procedure. A patchy area of the terminal ileum was congested. Biopsies were taken with a cold forceps for histology. Verification of patient identification for the specimen was done. Estimated blood loss was minimal. Impression: - One 8 mm polyp in the cecum, removed with a hot snare. Resected and retrieved. Clip was placed. 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 - Congested mucosa in the terminal ileum. Biopsied. Recommendation: - Discharge patient to home. - Repeat colonoscopy in 5 years for surveillance. - Continue present medications. Procedure Code(s): --- Professional --- 41915, Colonoscopy, flexible; with removal of tumor(s), polyp(s), or other lesion(s) by snare technique 18813, 59, Colonoscopy, flexible; with biopsy, single or multiple CPT copyright 2021 [employer]. All rights reserved. The codes documented in this report are preliminary and upon spool sorter review may be revised to meet current compliance requirements. Anam Paniagua DO 12/25/2024 8:37:17 AM This report has been signed electronically. Number of Addenda: 0 Note Initiated On: 12/25/2024 7:58 AM
--- NOTE | 2024-12-25 13:10 | PCM.POSTANE2 ---
Anesthesia Postop Eval I Sum Postop Eval Completion status Anesthesia document: Postop Eval 1 completed: Yes Anesthesia Postop Eval I Summary Anesthesia Postop Eval I Summary: Anesthesia Postop Eval I: Assessment Summary Airway patent Yes 12/25/24 08:28 [email or web address] Spontaneous unlabored Yes 12/25/24 08:28 [email or web address] respirations Mental status Asleep 12/25/24 08:28 [email or web address] nausea No 12/25/24 08:28 [email or web address] Vomiting No 12/25/24 08:28 [email or web address] Anesthesia Postop Eval I: Fluid Summary Crystalloid volume administer 800 12/25/24 08:28 [email or web address] (ml) Colloids volume administered ( ml) Blood Product volume administered (ml) Total IV fluid infused 800 12/25/24 08:28 [email or web address] Anesthesia Postop Eval I: Summary Notes Anesthesia Complication No 12/25/24 08:28 [email or web address] Anesthesia Complication Comment: Post-operative progress note Anesthesia: Postop Eval II Evaluation Mental status: Awake Pain Level: 1 nausea: No Vomiting: No
== END 2024-12-25 09:20 | disposition home or self-care (01) ==
LOC: EN 06:42 → AC 06:46
PROVIDERS: PCP Student in an Organized Health Care Education/Training Program; Referring Provider Student in an Organized Health Care Education/Training Program; Visit Provider Internal Medicine Gastroenterology
PROC: 0DJD8ZZ Inspection of Lower Intestinal Tract, Via Natural or Artificial Opening Endoscopic (ICD-10-PCS; CPT 45378; principal; 2024-12-25 07:40)
DX: R10.13 Epigastric pain (principal); R79.89 Other specified abnormal findings of blood chemistry; Z86.0100 Personal history of colon polyps, unspecified; K63.89 Other specified diseases of intestine; R10.30 Lower abdominal pain, unspecified; Z90.49 Acquired absence of other specified parts of digestive tract; J45.909 Unspecified asthma, uncomplicated; Z79.51 Long term (current) use of inhaled steroids; F41.9 Anxiety disorder, unspecified; Z79.899 Other long term (current) drug therapy; F32.A Depression, unspecified; K22.89 Other specified disease of esophagus; K31.89 Other diseases of stomach and duodenum; D12.0 Benign neoplasm of cecum; K52.9 Noninfective gastroenteritis and colitis, unspecified
CPT/HCPCS: 44361; 45385; 45380; 88305; 88342; J2405